=== PATIENT | female | born 1980 | race Caucasian/White ===

== ENCOUNTER 2017-01-24 06:27 | Inpatient (IN) ==
[2017-01-24] MEDS ORDERED: IOPAMIDOL 100 ML BOTTLE IJ ONE (06:28)
[2017-01-24] MEDS ORDERED: LORazepam 1 MG TABLET PO ONE (06:33)
[2017-01-24] MEDS ORDERED: ONDANSETRON 4 MG/2 ML VIAL IV ONE ×2 (06:33→07:41)
[2017-01-24] MEDS ORDERED: POTASSIUM CHLORIDE 20 MEQ, MAGNESIUM SULFATE 16.24 MEQ, THIAMINE 100 MG, MVI, ADULT NO.... IV SCH ×3 (06:38→10:36)
[2017-01-24] MEDS ORDERED: LORazepam 2 MG/ML VIAL IV ONE (07:03)
[2017-01-24 07:18] LABS: Basophils # (Auto) 0 K/mcL (0.0-0.3); Basophils % (Auto) 0.3 % (0.0-2.0); Eosinophils # (Auto) 0 K/mcL (0.0-0.7); Eosinophils % (Auto) 0.5 % (0.0-7.0); Granulocytes % (Auto) 67.7 % (38.0-78.0); Lymphocytes # (Auto) 1.2 K/mcL (1.5-4.8); Lymphocytes % (Auto) 21.9 % (15.5-49.0); Mean Cell Volume 90.8 fL (80.0-100.0); Mean Corpuscular HGB Conc 32.6 g/dL (31.0-36.0); Mean Corpuscular Hemoglobin 29.6 pg (26.0-34.0); Monocytes # (Auto) 0.5 K/mcL (0.1-0.9); Monocytes % (Auto) 9.6 % (1.0-12.0); Platelet Count 432 K/mcL (140-440); RBC 5.25 M/mcL (4.00-5.20); Red Cell Distribution Width 16.1 % (11.5-14.5)
[2017-01-24 07:38] LABS: ALT/SGPT 42 U/l (0-40); Albumin 5.1 gm/dL (3.2-5.2); Albumin/Globulin Ratio 1.6 (1.0-2.3); Alkaline Phosphatase 80 U/L (39-117); Blood Urea Nitrogen 9 mg/dl (6-20)
[2017-01-24] MEDS ORDERED: KETOROLAC 30 MG/ML VIAL IV ONE (07:41)
[2017-01-24] MEDS ORDERED: LACTATED RINGERS 1,000 ML IV ONE (07:41)
[2017-01-24] MEDS ORDERED: PROMETHAZINE 25 MG/ML VIAL IV ONE (07:41)
[2017-01-24] MEDS ORDERED: PROMETHAZINE 50 MG/ML AMPUL IM ONE (07:51)
[2017-01-24] MEDS: HYDROmorphone 2 MG/ML SYRINGE IV PRN ×4 (07:54→22:45)
--- NOTE | 2017-01-24 07:55 | Emergency Department Note ---
General Adult HPI - General Chief complaint: Nausea/Vomiting/Diarrhea Stated complaint: alcohol withdrawl Time Seen by Provider: 01/24/17 07:31 Source: family Mode of arrival: ambulatory Limitations: no limitations - History of Present Illness HPI Narrative: Patient presents, nausea, vomiting, left flank pain and abdominal pain. History of pancreatitis, history of delirium tremens, a history of alcohol withdrawal seizures. Patient states last drink of light was 36 hours ago. Patient severe, unable to keep anything down due to associated nausea, vomiting bilious. No fevers, no shortness of breath or cough. - Related Data Home Medications Medication Instructions Recorded Confirmed Citalopram [Celexa] 20 mg PO HS 01/05/17 01/08/17 Zolpidem Tartrate [Ambien Cr] 12.5 mg PO HS 01/05/17 01/08/17 Previous Rx's Medication Instructions Recorded Amoxicillin/Potassium Clav 875 mg PO Q12H #20 tablet 01/05/17 [Augmentin] LORazepam [Ativan] 1 mg PO Q8HP #12 tablet 01/08/17 Methocarbamol [Robaxin] 500 mg PO QIDP #30 tablet 01/08/17 Allergies Allergy/AdvReac Type Severity Reaction Status Date / Time morphine AdvReac Intermediate Anxiety Verified 01/05/17 12:55 promethazine [From Phenergan] AdvReac Intermediate Other Verified 01/24/17 07:57 trazodone AdvReac Mild nerve pain Verified 01/05/17 12:55 in neck Review of Systems All systems ED: reviewed and negative except as stated. Past Medical History - Past Medical History Attestation: Yes: The following information was validated with the patient. Medical history: Reports: asthma, GERD, seizures, other (alcohol abuse, pancreatitis, alcohol withdrawal) Surgical history ED: Reports: tonsillectomy, other (breast augmentation) Psychiatric history: Reports: anxiety Family history: Reports: non-contributory - Social History smoking status: Current every day smoker Alcohol use: Reports: Heavy, Recent Drug use: Reports: none Physical Exam - General Limitations: no limitations General appearance: alert, anxious, in distress - Head Head exam: atraumatic, normocephalic - Eye Eye exam: Present: normal appearance. Absent: scleral icterus - ENT ENT exam: mucous membranes dry - Neck Neck exam: Present: normal inspection. Absent: tenderness, lymphadenopathy - Chest Chest inspection: Present: normal inspection - Respiratory Respiratory exam: Present: normal lung sounds bilaterally, other (no tachypnea) . Absent: respiratory distress - Cardiovascular Cardiovascular exam: Present: normal rhythm, tachycardia. Absent: systolic murmur - Abdominal Exam Abdominal exam: Present: soft, tenderness. Absent: distention Abdominal tenderness: Present: LUQ, epigastrium, moderate - Extremities Exam Extremities exam: Present: normal inspection - Back Exam Back exam: Present: normal inspection - Neurological Exam Neurological exam: Present: alert, oriented X3 - Psychiatric Psychiatric exam: Present: anxious - Skin Skin exam: Present: diaphoresis Course Vital Signs Temperature 97.3 F L 01/24/17 06:28 Pulse Rate 117 H 01/24/17 06:28 Respiratory Rate 19 01/24/17 06:28 Blood Pressure 157/139 01/24/17 06:28 Pulse Oximetry (%) 99 01/24/17 06:28 Temperature 97.3 F L 01/24/17 06:28 Pulse Rate 88 01/24/17 08:46 Respiratory Rate 19 01/24/17 06:28 Blood Pressure 143/102 01/24/17 07:45 Pulse Oximetry (%) 99 01/24/17 08:46 Medical Decision Making - Medical Records Medical records reviewed: Yes I reviewed the patient's medical records. - Lab Data Lab results reviewed: Yes I reviewed the patient's lab results. Result diagrams: 01/24/17 06:45 01/24/17 06:45 Lab Results 01/24/17 01/24/17 01/24/17 Range/Units 06:45 06:45 06:45 WBC 5.4 (4.5-11.0) K/mcL RBC 5.25 H (4.00-5.20) M/mcL Hgb 15.5 H (12.0-15.0) g/dL Hct 47.7 (36.0-48.0) % MCV 90.8 (80.0-100.0) fL MCH 29.6 (26.0-34.0) pg MCHC 32.6 (31.0-36.0) g/dL RDW 16.1 H (11.5-14.5) % Plt Count 432 (140-440) K/mcL MPV 7.1 L (7.4-10.4) fL Gran % 67.7 (38.0-78.0) % Lymph % (Auto) 21.9 (15.5-49.0) % Chase % (Auto) 9.6 (1.0-12.0) % Eos % (Auto) 0.5 (0.0-7.0) % Baso % (Auto) 0.3 (0.0-2.0) % Gran # 3.6 (1.8-8.0) K/mcL Lymph # 1.2 L (1.5-4.8) K/mcL Chase # 0.5 (0.1-0.9) K/mcL Eos # 0 (0.0-0.7) K/mcL Baso # 0 (0.0-0.3) K/mcL ABG Methemoglobin (0.4-1.5) % VBG pH (7.32-7.42) U VBG pCO2 (41.0-51.0) mmHg VBG pO2 (25-40) mmHg VBG HCO3 (24.0-28.0) mmol/L VBG Total CO2 (25.0-29.0) mmol/L VBG O2 Saturation (40.0-70.0) % VBG Base Excess (-2.0-2.0) Carboxyhemoglobin (0.0-1.5) % THgb Total Hemoglobin (12.0-15.0) gm/dL O2 Delivery Level Sodium 138 (133-145) mmol/L Potassium 3.9 (3.3-5.1) mmol/L Chloride 87 L (96-108) mmol/L Carbon Dioxide 21 L (22-30) mmol/L Anion Gap 30.0 H (8-16) BUN 9 (6-20) mg/dl Creatinine 1.0 (0.6-1.1) mg/dl GFR Calculation 73 Glucose 168 H (70-105) mg/dL Calcium 10.0 (8.6-10.4) mg/dl Total Bilirubin 0.4 (0.0-1.0) mg/dL AST 77 H (0-37) U/l ALT 42 H (0-40) U/l Alkaline Phosphatase 80 (39-117) U/L C-Reactive Protein < 0.3 (0.0-0.8) mg/dl Total Protein 8.2 (5.9-8.4) gm/dL Albumin 5.1 (3.2-5.2) gm/dL Globulin 3.1 (2.2-3.7) gm/dL Albumin/Globulin Ratio 1.6 (1.0-2.3) Amylase 209 H (28-100) U/L Lipase 31 (7-60) U/L 01/24/17 Range/Units 08:15 WBC (4.5-11.0) K/mcL RBC (4.00-5.20) M/mcL Hgb (12.0-15.0) g/dL Hct (36.0-48.0) % MCV (80.0-100.0) fL MCH (26.0-34.0) pg MCHC (31.0-36.0) g/dL RDW (11.5-14.5) % Plt Count (140-440) K/mcL MPV (7.4-10.4) fL Gran % (38.0-78.0) % Lymph % (Auto) (15.5-49.0) % Chase % (Auto) (1.0-12.0) % Eos % (Auto) (0.0-7.0) % Baso % (Auto) (0.0-2.0) % Gran # (1.8-8.0) K/mcL Lymph # (1.5-4.8) K/mcL Chase # (0.1-0.9) K/mcL Eos # (0.0-0.7) K/mcL Baso # (0.0-0.3) K/mcL ABG Methemoglobin 0.3 L (0.4-1.5) % VBG pH 7.44 H (7.32-7.42) U VBG pCO2 45.6 (41.0-51.0) mmHg VBG pO2 139 H (25-40) mmHg VBG HCO3 30.5 H (24.0-28.0) mmol/L VBG Total CO2 31.9 H (25.0-29.0) mmol/L VBG O2 Saturation 93.2 H (40.0-70.0) % VBG Base Excess 5.5 H (-2.0-2.0) Carboxyhemoglobin 5.5 H (0.0-1.5) % THgb Total Hemoglobin 14.1 (12.0-15.0) gm/dL O2 Delivery Level Not Reportable Sodium (133-145) mmol/L Potassium (3.3-5.1) mmol/L Chloride (96-108) mmol/L Carbon Dioxide (22-30) mmol/L Anion Gap (8-16) BUN (6-20) mg/dl Creatinine (0.6-1.1) mg/dl GFR Calculation Glucose (70-105) mg/dL Calcium (8.6-10.4) mg/dl Total Bilirubin (0.0-1.0) mg/dL AST (0-37) U/l ALT (0-40) U/l Alkaline Phosphatase (39-117) U/L C-Reactive Protein (0.0-0.8) mg/dl Total Protein (5.9-8.4) gm/dL Albumin (3.2-5.2) gm/dL Globulin (2.2-3.7) gm/dL Albumin/Globulin Ratio (1.0-2.3) Amylase (28-100) U/L Lipase (7-60) U/L - Radiology Data Radiology results reviewed: Yes I reviewed the patient's radiology results. Disposition Clinical Impression: Alcohol withdrawal delirium Pancreatitis Qualifiers: Chronicity: acute Pancreatitis type: alcohol induced Acute pancreatitis complication: unspecified Qualified Code(s): K85.20 - Alcohol induced acute pancreatitis without necrosis or infection Nausea & vomiting Qualifiers: Vomiting type: bilious vomiting Qualified Code(s): R11.14 - Bilious vomiting Summary: patient planning on Inpatient rehabilitation program, intake on Friday. Stopped alcohol in advance. Consuming more than 12 beers a day. Previous sobriety, just recently lost her job Patient accepted by DR Durant Disposition: Xfer As Inpt ([facility]) Condition: Fair Referrals: Vivian Olivarez ARNP [Primary Care Provider] -
[2017-01-24 08:12] LABS: Amylase 209 U/L (28-100); C-Reactive Protein < 0.3 mg/dl (0.0-0.8); Lipase 31 U/L (7-60)
[2017-01-24 08:42] LABS: ABG Methemoglobin 0.3 % (0.4-1.5); VBG Base Excess 5.5 (-2.0-2.0); VBG HCO3 30.5 mmol/L (24.0-28.0); VBG Oxygen Saturation 93.2 % (40.0-70.0); VBG PCO2 45.6 mmHg (41.0-51.0); VBG PH 7.44 U (7.32-7.42); VBG PO2 139 mmHg (25-40); VBG Total CO2 31.9 mmol/L (25.0-29.0)
[2017-01-24] MEDS ORDERED: PROCHLORPERAZINE 10 MG/2 ML VIAL IV ONE (08:47)
[2017-01-24] MEDS ORDERED: IPRATROPIUM/ALBUTEROL 3 ML AMPUL.NEB NEB PRN ×2 (09:37→10:36)
[2017-01-24] MEDS ORDERED: ONDANSETRON 4 MG/2 ML VIAL IV PRN (09:37)
[2017-01-24] MEDS ORDERED: PROMETHAZINE 25 MG/ML VIAL IV PRN ×2 (09:37→10:36)
[2017-01-24] MEDS ORDERED: NALOXONE HCL 0.4 MG/ML VIAL IV PRN ×2 (09:37→10:36)
[2017-01-24] MEDS ORDERED: PANTOPRAZOLE 40 MG VIAL IV SCH (09:39)
[2017-01-24] MEDS ORDERED: 0.9 % SODIUM CHLORIDE 1,000 ML IV SCH (09:45)
--- NOTE | 2017-01-24 10:03 | Cat Scan Report ---
History: Pancreatitis and alcohol withdrawal Technique: the patient was imaged following intravenous but no oral contrast from the diaphragm to the iliac crests sagittal and coronal reformats were created. Findings: The lung bases are clear. There is a small hiatus hernia. Mild fatty infiltration is present throughout the liver. The liver is normal in size and there is no evidence of cirrhosis or mass. The gallbladder and bile ducts are normal. Spleen is normal in size and homogeneous. The pancreas is normal in size shape and contour, without evidence of acute or chronic pancreatitis. Pancreatic duct is nondilated. The adrenals and kidneys are normal. The aorta and inferior vena cava are normal. There is no ascites or adenopathy. Comparison with the prior exam from 11/29/16 shows no significant change. Impression: Anatomically normal pancreas. Mild fatty infiltration of liver Dr. Bernard was called with results Interpreted and Authenticated by: Jimmie Hamlin 01/24/17
--- NOTE | 2017-01-24 10:03 | Internal Med History&Physical ---
Medical - H&P: HPI Patient information: Note initiated : 01/24/17 at 10:00 am Service Date, if different from initiated Date: [] Patient: Tameka Cody a 36 y/o F admitted on for Alcohol Withdrawl. Chief Complaint: [] History of present illness: Ms. Cody is a 36 year old female wit h/o alcohol abuse, on and off relapse, comes in to the ER with alcohol withdrawal The patient was trying to quit alcohol approx 2 week ago, she was sober for around a week, and then she relapsed. She notes that she lost her job and therefore started drinking again. Drinks approx 12 beers (keystone) every day. She decided to quit again yesterday, last drink yesterday noon. This AM she presents to the ER with anxiety, dizziness, tremors, palpitations, nausea, vomiting and abdominal pain. the patient reports that she is due to check her self in Rehab on Friday, but needs to get through the withdrawal first. She has cough with yellow sputum, h/o recently diagnosed pna, treated with Augmentin. The pt reports persistent cough, chills but no documented fever The patient usually has withdrawals, and is treated as outpatient with ativan in the past, denies any ICU admits, however she notes that she had alcohol withdrawal seizure 2 months ago. She also notes abdominal pain, in the epigastric, left lumbar region, associated with nausea and vomiting, x 1 day, movement makes it worse, no major reilving factors, moderate in intensity. Plan is to get CT abdo in the CT. Urine HCG test before ct ordered. Pt denies any other ingestion. Review of systems: CONSTITUTIONAL: No weight loss, fever, present chills and weakness HEENT: Eyes: No visual loss, blurred vision, double vision or yellow sclerae. Ears, Nose, Throat: No hearing loss, sneezing, congestion, runny nose or sore throat. SKIN: No rash or itching. CARDIOVASCULAR: No chest pain, chest pressure or chest discomfort. no edema, but palpitations are present. RESPIRATORY: No shortness of breath. Present cough and yellow sputum. GASTROINTESTINAL: present nausea, vomiting and diarrhea Present abdominal pain GENITOURINARY: Denies Burning on urination. Blood in urine, or foul smelling urine NEUROLOGICAL: present headache, dizziness, No syncope, paralysis, Present tremors, . No change in bowel or bladder control. MUSCULOSKELETAL: No muscle, back pain, joint pain or stiffness. HEMATOLOGIC: No bleeding or bruising. No enlarged nodes PSYCHIATRIC: Present depression and anxiety. ENDOCRINOLOGIC: PResent sweating, . No polyuria or polydipsia. ALLERGIES: No hives, eczema or rhinitis. Skin: No rash, no jaundice, cyanosis or pallor. Medical - H&P: PMH Medical history: Alcohol abuse exercise induced asthma Depression. / anxiety Family history: reviewed and not pertinent Social history: smoker etoh, denies thc or ther substances. Medical - H&P: Meds Home Medications Medication Instructions Recorded Confirmed Type Amoxicillin/Potassium Clav 875 mg PO Q12H #20 tablet 01/05/17 01/08/17 Rx [Augmentin] Citalopram [Celexa] 20 mg PO HS 01/05/17 01/08/17 History Zolpidem Tartrate [Ambien Cr] 12.5 mg PO HS 01/05/17 01/08/17 History LORazepam [Ativan] 1 mg PO Q8HP #12 tablet 01/08/17 Rx Methocarbamol [Robaxin] 500 mg PO QIDP #30 tablet 01/08/17 Rx Allergies Allergy/AdvReac Type Severity Reaction Status Date / Time morphine AdvReac Intermediate Anxiety Verified 01/05/17 12:55 promethazine [From Phenergan] AdvReac Intermediate Other Verified 01/24/17 07:57 trazodone AdvReac Mild nerve pain Verified 01/05/17 12:55 in neck Medical - H&P: Exam - Constitutional Vitals: Temp Pulse Resp BP Pulse Ox 97.3 F L 88 19 143/102 99 01/24/17 06:28 01/24/17 08:46 01/24/17 06:28 01/24/17 07:45 01/24/17 08:46 Exam: GENERAL: The patient is a well-developed, well-nourished in no apparent distress, appears anxious. Is alert and oriented x3. VITAL SIGNS: Reviewed and as noted elsewhere. HEENT: Head is normocephalic and atraumatic. Extraocular muscles are intact. Pupils are equal, round, and reactive to light. Nares appeared normal. Mouth appears any without lesions. Mucous membranes are moist. NECK: Normal to inspection, Supple, No lymphadenopathy or thyromegaly. LUNGS: Air entry equal on both sides, no wheezing, crackles or rhonchi noted. No accessory muscles of respiration HEART: Regular tachycardic and rhythm normal, S1 and S2 heard, no Gallop, S3 or Rub Noted, No Gross murmur heard. ABDOMEN: Soft, tender in the epigastric, left upper/ lumbar region, no guarding or rebound, nondistended. Positive bowel sounds. No hepatosplenomegaly was noted. EXTREMITIES: No cyanosis, clubbing, rash, lesions or edema. NEUROLOGIC: Cranial nerves II through XII are grossly intact. Motor and Sensory System Grossly Intact, tongue tremors and hand tremors present. PSYCHIATRIC: Normal affect, Normal Mood. Appropriate Behavior. SKIN: No ulceration or wounds noted, No jaundice, No rash noted. Medical - H&P: Reslt - Labs CBC & Chem 7: 01/24/17 06:45 01/24/17 06:45 Labs: Short CBC 01/24/17 Range/Units 06:45 WBC 5.4 (4.5-11.0) K/mcL Hgb 15.5 H (12.0-15.0) g/dL Hct 47.7 (36.0-48.0) % Plt Count 432 (140-440) K/mcL BMP 01/24/17 06:45 Sodium 138 Potassium 3.9 Chloride 87 L Carbon Dioxide 21 L BUN 9 Creatinine 1.0 Glucose 168 H Calcium 10.0 Liver Function 01/24/17 Range/Units 06:45 Total Bilirubin 0.4 (0.0-1.0) mg/dL AST 77 H (0-37) U/l ALT 42 H (0-40) U/l Alkaline Phosphatase 80 (39-117) U/L Albumin 5.1 (3.2-5.2) gm/dL - ABG Interpretation ABG results: 01/24/17 08:15 ABG Methemoglobin 0.3 L VBG pH 7.44 H VBG pCO2 45.6 VBG pO2 139 H VBG HCO3 30.5 H VBG Total CO2 31.9 H VBG O2 Saturation 93.2 H VBG Base Excess 5.5 H Additional comments: vbg noted, pt seems to have high anion gap metabolic acidosis, Acute resp alkalosis. Medical - H&P: A/P - Narrative A/P Narrative: Alcohol withdrawal: Presently not confused, but tremulous, difficult to take PO , IV banana bag given in ER, will continue same daily, CIWA protocol, IV ativan prn. Look for infectious sources. check UA, CXR, Get utox. High Anion Gap Acidosis/ Resp Alkalosis: AG of 30, ph 7.44, etiology? check etiology for high gap, salicylates, methyl alcohol, isopropyl alcohol, ethyelene glycol, also check Tylenol levels. Urine drug screen. Pt denies any ingestion. abnl lft: due to etoh, check apap levels. Abdominal Pain: Likely from alcohol withdrawal, amylase elevated, lipase normal Await CT Scan. Code Full code Diet Regular
--- NOTE | 2017-01-24 10:34 | XRay Report ---
HISTORY: Reason for Exam:pneumonia. FINDINGS: The lungs are clear. The heart, mediastinum, micheal and pleura are normal. The mild alveolar infiltrate seen throughout the right lung on 01/08/17 has resolved. There is no underlying mass, adenopathy or pleural effusion. IMPRESSION: Normal chest. Interpreted and Authenticated by: Jimmie Hamlin 01/24/17
[2017-01-24] MEDS: 0.9 % SODIUM CHLORIDE 1,000 ML IV SCH ×2 (10:45→20:41)
[2017-01-24 10:54] LABS: Acetaminophen < 5.0 mcg/ml (10.0-30.0); Salicylate 0.8 mg/dL (0-30.0)
[2017-01-24] MEDS: LORazepam 2 MG/ML VIAL IV PRN ×4 (12:16→22:46)
[2017-01-24 16:05] LABS: Appearance,Urine HAZY; Bacteria,Urine 0 /hpf (0); Bilirubin,Urine NEG (NEG); Color,Urine YELLOW; Glucose,Urine (UA) NEGATIVE (NEG); Leukocyte Esterase,Urine NEG /uL (NEG); Mucus,Urine FEW /hpf (0); Nitrate,Urine NEG (NEG); Protein,Urine 30 mg/dL (NEG); Specific Gravity,Urine 1.032 (1.000-1.035); Urine Blood NEG mg/dL (<0.03); Urine Hyaline Cast 3 /lpf (0-2); Urine RBC 4 /hpf (0-1); Urine Squamous Epithelial Cell 17 /hpf (0-4); Urine WBC 7 /hpf (0-4); Urobilinogen,Urine NEG (NEG)
[2017-01-24] MEDS: ONDANSETRON 4 MG/2 ML VIAL IV PRN (16:22)
[2017-01-24 16:30] LABS: Amphetamine Screen,Urine NONE DETECTED (NONDETECTED); Benzodiazepines Screen,Urine NONE DETECTED (NONDETECTED); Cocaine Screen,Urine NONE DETECTED (NONDETECTED); Opiate Screen,Urine NONE DETECTED (NONDETECTED)
[2017-01-24] MEDS ORDERED: HEPARIN 5,000 UNIT/ML VIAL SQ SCH (21:00)
[2017-01-24] MEDS: HEPARIN 5,000 UNIT/ML VIAL SQ SCH (21:00)
[2017-01-25] MEDS: HYDROmorphone 2 MG/ML SYRINGE IV PRN ×5 (02:27→20:59)
[2017-01-25] MEDS: ONDANSETRON 4 MG/2 ML VIAL IV PRN ×3 (02:27→13:13)
[2017-01-25] MEDS: LORazepam 2 MG/ML VIAL IV PRN ×7 (02:49→23:48)
[2017-01-25 06:11] LABS: ALT/SGPT 30 U/l (0-40); Albumin/Globulin Ratio 1.9 (1.0-2.3); Alkaline Phosphatase 60 U/L (39-117); Basophils # (Auto) 0 K/mcL (0.0-0.3); Basophils % (Auto) 0.4 % (0.0-2.0); Bilirubin,Direct < 0.2 mg/dL (0.0-0.3); Blood Urea Nitrogen 7 mg/dl (6-20); Eosinophils # (Auto) 0.1 K/mcL (0.0-0.7); Eosinophils % (Auto) 2.5 % (0.0-7.0); Gamma Glutamyl Transpeptidase 25 U/L (5-36); Granulocytes % (Auto) 54.9 % (38.0-78.0); Lymphocytes # (Auto) 0.9 K/mcL (1.5-4.8); Lymphocytes % (Auto) 31.7 % (15.5-49.0); Magnesium 2.2 mg/dL (1.6-2.5); Mean Cell Volume 91.6 fL (80.0-100.0); Mean Corpuscular HGB Conc 33.3 g/dL (31.0-36.0); Mean Corpuscular Hemoglobin 30.5 pg (26.0-34.0); Monocytes # (Auto) 0.3 K/mcL (0.1-0.9); Monocytes % (Auto) 10.5 % (1.0-12.0); Platelet Count 194 K/mcL (140-440); RBC 4.07 M/mcL (4.00-5.20); Red Cell Distribution Width 15.6 % (11.5-14.5); Uric Acid 3.9 mg/dL (2.5-8.0)
[2017-01-25] MEDS: 0.9 % SODIUM CHLORIDE 1,000 ML IV SCH ×2 (06:27→19:43)
[2017-01-25] MEDS: PANTOPRAZOLE 40 MG VIAL IV SCH (08:28)
[2017-01-25] MEDS: HEPARIN 5,000 UNIT/ML VIAL SQ SCH ×2 (09:45→21:00)
[2017-01-25] MEDS: PROCHLORPERAZINE 10 MG/2 ML VIAL IV PRN ×2 (09:45→19:42)
[2017-01-25] MEDS: NEUTRA PHOS 1 PACKET PO SCH ×2 (09:46→21:00)
--- NOTE | 2017-01-25 10:19 | Internal Med Progress Note ---
Medical - PN: Subj Patient information: Note initiated : 01/25/17 at 10:19 am Service Date, if different from initiated Date: [] Patient: Tameka Cody a 36 y/o F admitted on 01/24/17 for Alcohol Withdrawl. Chief Complaint: [] Interval history: January 24, 2017: History of present illness: Ms. Cody is a 36 year old female wit h/o alcohol abuse, on and off relapse, comes in to the ER with alcohol withdrawal. The patient was trying to quit alcohol approx 2 week ago, she was sober for around a week, and then she relapsed. She notes that she lost her job and therefore started drinking again. Drinks approx 12 beers (keystone) every day. She decided to quit again yesterday, last drink yesterday noon. This AM she presents to the ER with anxiety, dizziness, tremors, palpitations, nausea, vomiting and abdominal pain. the patient reports that she is due to check her self in Rehab on Friday, but needs to get through the withdrawal first. She has cough with yellow sputum, h/o recently diagnosed pna, treated with Augmentin. The pt reports persistent cough, chills but no documented fever. The patient usually has withdrawals, and is treated as outpatient with ativan in the past, denies any ICU admits, however she notes that she had alcohol withdrawal seizure 2 months ago. She also notes abdominal pain, in the epigastric, left lumbar region, associated with nausea and vomiting, x 1 day, movement makes it worse, no major reilving factors, moderate in intensity. Plan is to get CT abdo in the CT. Urine HCG test before ct ordered. Pt denies any other ingestion. January 25: On service note: his patient with a history of chronic alcoholism was admitted yesterday complaining of anxiety, nausea and vomiting, and other signs of acute alcohol withdrawal. She underwent CT of the abdomen, which was not suggestive of any acute disease, including pancreatitis. she was noted to have a significant anion gap acidosis, likely due to alcoholic ketoacidosis. This has significantly improved overnight after IV fluid hydration. The patient has continued to complainof various things, including headache, dizziness, cough productive of yellowish phlegm, chest soreness from vomiting, nausea and vomiting, mild abdominalepigastric and left upper quadrant soreness, anxiety. She denies hematemesis, but generally has a positive review of systems, reporting that she has felt feverish and cold, clammy, dizzy, mildly short of breath, occasional palpitations. She denies dysuria. past medical history is notable for history of chronic alcohol abuse, exercise- induced asthma, depression and anxiety allergies include morphine, promethazine, trazodone social history: The patient is apparently , and lives with her 12-year- old son. It appears there is shared custody with her ex-. The patient is a current smoker, but denies drug use. - Constitutional Vitals: Vital Signs Temp Pulse Resp BP Pulse Ox 98.5 F 86 12 133/95 94 01/25/17 08:00 01/25/17 04:00 01/25/17 08:00 01/25/17 08:00 01/25/17 08:00 Period Temp Pulse Resp BP Sys/Lomeli Pulse Ox Last 24 Hr 97.4 F-98.5 F 86-90 12-18 133-157/76-139 94-100 Intake and Output 01/24/17 01/25/17 01/25/17 21:59 05:59 13:59 Intake Total 2133 / 2133 480 / 480 977 / 977 Output Total 1050 / 1050 1500 / 1500 Balance 1083 / 1083 -1020 / -1020 977 / 977 Weight 139 lb 3.2 oz 139 lb 3.2 oz Patient Weight 01/26/17 05:59 Weight 139 lb 3.2 oz Intake & Output: Intake & Output 01/24/17 01/25/17 01/25/17 21:59 05:59 13:59 Intake Total 2133 / 2133 480 / 480 977 / 977 Output Total 1050 / 1050 1500 / 1500 Balance 1083 / 1083 -1020 / -1020 977 / 977 Weight 139 lb 3.2 oz 139 lb 3.2 oz Intake: IV 993 / 993 977 / 977 Sodium Chloride 0.9% 1, 993 / 993 977 / 977 000 ml @ 100 mls/hr IV . Q10H [facility] Rx#:[id number] Oral 1140 / 1140 480 / 480 Output: Void Amount 1050 / 1050 1400 / 1400 Emesis 100 / 100 Other: Meal Dinner Percent of Meal Consumed 25% Feeding Ability Assist with Tray Set Up Exam: on exam, the patient is awake and alert She did have recurrent vomiting this morning, but is more comfortable when I see her. She is not in any acute distress. Neck is supple without obvious lymphadenopathy or JVD. Cardiac exam shows regular rate and rhythm. Lungs are clear to auscultation. Abdomen is diffusely tender, but without guarding or rebound. Bowel sounds are active. Extremities: Show no significant edema. Neurologic exam: The patientis a bit anxious at times, but otherwise exam is grossly nonfocal. Medical - PN: Obj Da - Labs CBC & Chem 7: 01/25/17 04:05 01/25/17 04:05 Labs: Abnormal Lab Results 01/25/17 01/25/17 01/24/17 04:05 04:05 15:37 WBC 2.8 L RDW 15.6 H Gran # 1.5 L Lymph # 0.9 L Chloride 95 L Calcium 8.4 L Phosphorus 2.3 L AST 48 H Globulin 2.1 L Urine Protein 30 A Urine Ketones 5/tr A Urine RBC 4 H Urine WBC 7 H Ur Squamous Epith Cells 17 H Hyaline Casts 3 H urine tox screen from January 24 was essentially negative. Salicylate level from yesterday was normal at 0.8, and Tylenol was negative. Ethyl alcohol was elevated at 0.33 chest x-ray was normal on January 24. CT of the abdomen from January 24, shows a small hiatal hernia, and mild fatty liver infiltration. Gallbladder, spleen, pancreas all appeared normal. Meds: Medications Albuterol/Ipratropium (Duoneb) 3 ml NEB Q6HRT PRN PRN Reason: Shortness Of Breath Or Wheezing Heparin Sodium (Porcine) (Heparin) 5,000 unit SQ Q12 PAUL Last Admin: 01/25/17 09:45 Dose: 5,000 unit Hydromorphone HCl (Dilaudid) 0.5 mg IV Q4-6HP PRN PRN Reason: Pain Last Admin: 01/25/17 06:30 Dose: 0.5 mg Sodium Chloride (Sodium Chloride 0.9%) 1,000 mls @ 100 mls/hr IV .Q10H PAUL Last Admin: 01/25/17 06:27 Dose: 100 mls/hr Potassium Chloride 20 meq/Magnesium Sulfate 16.24 meq/Thiamine HCl 100 mg/ Multivitamins/Minerals 10 ml/Sodium Chloride 1,025 mls @ 125 mls/hr IV Q24H [facility] Stop: 01/27/17 18:11 Lorazepam (Ativan) 1 - 4 mg IV Q4HP PRN; Protocol PRN Reason: Alcohol Withdrawal Last Admin: 01/25/17 09:59 Dose: 2 mg Naloxone HCl (Narcan) 0.1 mg IV Q2MIN PRN PRN Reason: Opiate Reversal Nicotine (Nicoderm) 14 mg TOPICAL DAILY@1000 PAUL Ondansetron HCl (Zofran) 4 mg IV Q4HP PRN PRN Reason: Nausea And Vomiting Last Admin: 01/25/17 06:26 Dose: 4 mg Pantoprazole Sodium (Protonix) 40 mg IV QAMAC [facility] Last Admin: 01/25/17 08:28 Dose: 40 mg Potassium/Phosphorus/Sodium (Neutra Phos) 1 packet PO BID [facility] Last Admin: 01/25/17 09:46 Dose: 1 packet Prochlorperazine Edisylate (Compazine) 2.5 mg IV Q2HP PRN PRN Reason: Nausea And Vomiting Last Admin: 01/25/17 09:45 Dose: 2.5 mg Medical - PN: A/P - Time Spent With Patient Total time spent is greater than 50% in coordination of care (as documented) at patient's floor/unit and/or counseling patient: - Narrative A/P Narrative: #1. Alcohol withdrawal. -Continue close observation, and when necessary Ativan and Zofran, per the CIWA scale. -Patient plans to enter inpatient rehabilitation X week. #2. Renal. -This patient presented with probable alcoholic ketoacidosis, and anion gap has returned to normal today.continue IV fluids until oral intake improves. -phosphorus level is low today. We will try to replace this orally. #3.GI. -Patient continues to have intermittent nausea and vomiting. This is managed with Zofranand Compazine when necessary was added this morning. -Transaminases are mildly elevated, likely due to alcoholic hepatitis. These are improving today. tox screen was essentially negative. #4. Infectious disease/ pulmonary. The patient was treated for pneumonia a week or 2 ago. She continues to have productive cough, and it is not clear if this is contributing to her vomiting spells. I think given her overall debilitated state, and mild pancytopenia, that I will reintroduce antibiotics for probable ongoing bronchitis. Also add when necessary albuterol nebulizers. #5. DVT prophylaxis: Subcutaneous heparin. #6. CODE STATUS: Full code. #7. Hematologic. hemoglobin and hematocrit have dropped with hydration. Continue to follow. The patient also has mild leukopenia and lymphopenia, likely due to her chronic alcohol use. Continue to monitor. Platelets have also dropped significantly, and we will continue to monitor. this visit took approximately 35 minutes today, to review the patient's chart and test results, interview and examine her, review clinic care with nursing staff, and write orders. Medical - PN: Qual - VTE Deep Vein Thrombosis/Pulmonary Embolism Present on Admission: No
[2017-01-25] MEDS: NICOTINE 14 MG PATCH TOPICAL SCH (10:56)
[2017-01-25] MEDS: POTASSIUM CHLORIDE 20 MEQ, MAGNESIUM SULFATE 16.24 MEQ, THIAMINE 100 MG, MVI, ADULT NO.... IV SCH (10:56)
[2017-01-25] MEDS: 0.9 % SODIUM CHLORIDE 10 ML SYRINGE IV SCH ×4 (14:27→21:00)
[2017-01-25] MEDS: PIPERACILLIN SODIUM/TAZOBACTAM 3.375 GM in DEXTROSE 5% IN WATER 50 ML IV SCH ×2 (14:27→20:58)
[2017-01-26] MEDS: HYDROmorphone 2 MG/ML SYRINGE IV PRN ×2 (01:49→04:42)
[2017-01-26] MEDS: PROCHLORPERAZINE 10 MG/2 ML VIAL IV PRN (01:49)
[2017-01-26] MEDS: LORazepam 2 MG/ML VIAL IV PRN ×3 (02:45→08:03)
[2017-01-26] MEDS: 0.9 % SODIUM CHLORIDE 1,000 ML IV SCH (04:40)
[2017-01-26] MEDS: PIPERACILLIN SODIUM/TAZOBACTAM 3.375 GM in DEXTROSE 5% IN WATER 50 ML IV SCH (04:41)
[2017-01-26] MEDS: 0.9 % SODIUM CHLORIDE 10 ML SYRINGE IV SCH (04:41)
[2017-01-26 05:59] LABS: Basophils # (Auto) 0 K/mcL (0.0-0.3); Basophils % (Auto) 0.5 % (0.0-2.0); Eosinophils # (Auto) 0.2 K/mcL (0.0-0.7); Eosinophils % (Auto) 5.2 % (0.0-7.0); Granulocytes % (Auto) 45.1 % (38.0-78.0); Lymphocytes # (Auto) 1.5 K/mcL (1.5-4.8); Lymphocytes % (Auto) 42.7 % (15.5-49.0); Mean Cell Volume 91.7 fL (80.0-100.0); Mean Corpuscular HGB Conc 33.4 g/dL (31.0-36.0); Mean Corpuscular Hemoglobin 30.6 pg (26.0-34.0); Monocytes # (Auto) 0.2 K/mcL (0.1-0.9); Monocytes % (Auto) 6.5 % (1.0-12.0); Platelet Count 167 K/mcL (140-440); RBC 3.88 M/mcL (4.00-5.20); Red Cell Distribution Width 15.3 % (11.5-14.5)
[2017-01-26 06:20] LABS: ALT/SGPT 28 U/l (0-40); Albumin 3.4 gm/dL (3.2-5.2); Albumin/Globulin Ratio 1.4 (1.0-2.3); Alkaline Phosphatase 55 U/L (39-117); Bilirubin,Direct < 0.2 mg/dL (0.0-0.3); Blood Urea Nitrogen 4 mg/dl (6-20); Gamma Glutamyl Transpeptidase 22 U/L (5-36); Uric Acid 2.2 mg/dL (2.5-8.0)
[2017-01-26] MEDS: PANTOPRAZOLE 40 MG VIAL IV SCH (07:25)
[2017-01-26] MEDS: NEUTRA PHOS 1 PACKET PO SCH (09:13)
[2017-01-26] MEDS: HEPARIN 5,000 UNIT/ML VIAL SQ SCH (09:14)
[2017-01-26] MEDS: POTASSIUM CHLORIDE 20 MEQ, MAGNESIUM SULFATE 16.24 MEQ, THIAMINE 100 MG, MVI, ADULT NO.... IV SCH (09:15)
[2017-01-26] MEDS: NICOTINE 14 MG PATCH TOPICAL SCH ×2 (10:39→12:27)
--- NOTE | 2017-01-26 11:12 | Discharge Summary ---
Medical - DS: Prov Patient information: Note initiated : 01/26/17 at 11:04 am Service Date, if different from initiated Date: [] Patient: Tameka Cody a 36 y/o F admitted on 01/24/17 for Alcohol Withdrawl. Chief Complaint: [] Date of admission: 01/24/17 10:25 Discharge date: 01/26/17 Primary care physician: [] Vivian Olivarez, nurse practitioner, phone #[phone] Admitting clinician: Cecile Durant Attending physician on discharge: Jenny Larsen Medical - DS: Meds - Discharge Medications Prescriptions: Amoxicillin/Potassium Clav [Augmentin] 875 mg PO BID #10 tablet Cyanocobalamin/FA/Pyridoxine [B Complex-Folic Acid Tablet] 1 each PO DAILY #1 tablet LORazepam [Ativan] 1 mg PO Q8HP #12 tablet Nicotine [Nicoderm] 14 mg TOPICAL DAILY@1000 #30 patch Active and Home Medications: Home Medications Zolpidem Tartrate [Ambien Cr] 12.5 mg PO HS 01/05/17 [History Confirmed Last Taken 01/23/17 21:00] LORazepam [Ativan] 1 mg PO Q8HP #12 tablet 01/08/17 [Rx Confirmed 01/24/17 Last Taken 01/01/17 21:00] Cymbalta 60 mg PO QDAY 01/24/17 [History Confirmed 01/24/17 Last Taken 01/23/17 08:00] Medical - DS: Hosp Hospital course: Ms. Cody is a 36 year old female January 25: On service note: This patient with a history of chronic alcoholism was admitted yesterday complaining of anxiety, nausea and vomiting, and other signs of acute alcohol withdrawal. She underwent CT of the abdomen, which was not suggestive of any acute disease, including pancreatitis. she was noted to have a significant anion gap acidosis, likely due to alcoholic ketoacidosis. This has significantly improved overnight after IV fluid hydration. The patient has continued to complain of various things, including headache, dizziness, cough productive of yellowish phlegm, chest soreness from vomiting, nausea and vomiting, mild abdominal epigastric and left upper quadrant soreness, anxiety. She denies hematemesis, but generally has a positive review of systems, reporting that she has felt feverish and cold, clammy, dizzy, mildly short of breath, occasional palpitations. She denies dysuria. hospital course; this patient was admitted with signs of alcohol withdrawal, mainly consisting of anxiety, tremor, nausea and vomiting. She required fairly high dose Ativan, and addition to Zofran and Compazine to control her symptoms, but this morning says she is feeling quite a bit better. She was able to tolerate dinner last night and breakfast this morning. She would like to return home as long as we can send her home with some Ativan for her episodes of anxiety and tremor. She says she will go to a friend's house, and he will manage the medications for her. otherwise, today,she denies fever or chills, chest pain or shortness of breath She does still have some mild abdominal soreness, but has not had any more nausea or vomiting. She denies dysuria. past medical history is notable for history of chronic alcohol abuse, exercise- induced asthma, depression and anxiety allergies include morphine, promethazine, trazodone social history: The patient is apparently , and lives with her 12-year- old son. It appears there is shared custody with her ex-. The patient is a current smoker, but denies drug use. physical exam: The patient is in no acute distress, but was dozing when I entered the room. She awakens fairly easily.Neck is supple without obvious adenopathy or JVD. Cardiac exam shows regular rate and rhythm. Lungs are clear to auscultation. Abdomen is soft, but fairly diffusely tender, without guarding or rebound. Bowel sounds are active. Extremities show no edema. Neurologic exam:Mood and affect still appears just slightly anxious, but otherwise she is alert and oriented and cooperative. Cranial nerves are grossly intact. No tremor is noted. Exam is otherwise grossly nonfocal. assessment and plan: #1. Alcohol withdrawal. She seems to be past the worst part of her withdrawal, and can probably be discharged home today. he will have a friend help manage any other symptoms of anxiety or tremor She says she is to report for an outpatient rehabilitation program day after tomorrow. #2. Renal. -This patient presented with probable alcoholic ketoacidosis, and anion gap has returned to normal . most lab abnormalities have returned to normal after IV fluids Phosphorus was low and was replaced by mouth. #3.GI. -Patient has had decreasing episodes of intermittent nausea and vomiting. we did have to addCompazine to Zofran to control her nausea, but this seems to have settled down today. -Transaminases are mildly elevated, likely due to alcoholic hepatitis. These are improving . tox screen was essentially negative. #4. Infectious disease/ pulmonary. The patient was treated for pneumonia a week or 2 ago. She continued to havea lot of coughing and yellowish phlegm yesterday, so she was started on Zosyn to try to clear out whatever was left of her lung infection. I will send her home with another 4 days of oral Augmentin. It appears that a lot of her abdominal soreness may be because she was doing so much coughing and vomiting. #5. DVT prophylaxis: Subcutaneous heparin. #6. CODE STATUS: Full code. #7. Hematologic. hemoglobin and hematocrit have dropped with hydration. Continue to follow. The patient also has mild leukopenia, but lymphopenia has improved. Platelets also dropped from her admission number of 432 down to 167. I suspect she has bone marrow dysfunction due to her ongoing alcohol use, but a CBC should probably be rechecked next week when she follows up with her pCP. -I have advised her to take a B complex supplements and an iron supplement, until her CBC recovers to normal.she should also certainly remain abstinent from alcohol. #8. Tobacco abuse. -The patient has been tolerating a NicoDerm patch while here, and does request a prescription for home.she did note some strange dreams last night, so I told her that she could try taking the patch off at bedtime. this visit took approximately 40 minutes today, to review the patient's chart, review her case with nursing staff, interview and examine her,review test results and write orders. Discharge diagnosis: acute alcohol withdrawal, alcoholism, depression and anxiety, tobacco use - Time Spent with Patient Total time spent providing and/or coordinating discharge services: Greater than 30 minutes Medical - DS: Exam - Constitutional Vitals: Vital Signs Temp Pulse Resp BP Pulse Ox 01/26/17 07:41 98.5 F 16 156/101 95 01/26/17 07:20 95 01/26/17 04:00 98.2 F 80 20 144/96 98 01/25/17 23:54 97.8 F 91 H 22 139/94 01/25/17 19:55 108 H 22 94 01/25/17 19:46 98.2 F 108 H 22 143/95 94 01/25/17 16:55 98.6 F 16 152/103 98 01/25/17 12:00 98.4 F 82 14 131/93 96 Intake and Output 01/25/17 01/26/17 01/26/17 21:59 05:59 13:59 Intake Total 2865 / 2865 895 / 895 1490 / 1490 Output Total 2600 / 2600 500 / 500 1150 / 1150 Balance 265 / 265 395 / 395 340 / 340 Intake: IV 1125 / 1125 895 / 895 520 / 520 Sodium Chloride 0.9% 1, 0 / 0 895 / 895 457 / 457 000 ml @ 100 mls/hr IV . Q10H [facility] Rx#:[id number] Zosyn 3.375 gm In 100 / 100 50 / 50 Dextrose 5% in Water 50 ml @ 100 mls/hr IV Q8 PAUL Rx#:[id number] Oral 1740 / 1740 970 / 970 Output: Void Amount 2600 / 2600 500 / 500 1150 / 1150 Other: Meal Lunch Nourishment/Supplement Percent of Meal Consumed 50% 100% Feeding Ability Independent Weight 143 lb 4.8 oz Medical - DS: Data Labs on day of discharge: Labs from last 24 hours 01/26/17 01/26/17 04:35 04:35 WBC 3.5 L RBC 3.88 L Hgb 11.9 L Hct 35.6 L MCV 91.7 MCH 30.6 MCHC 33.4 RDW 15.3 H Plt Count 167 MPV 7.8 Gran % 45.1 Lymph % (Auto) 42.7 [place] % (Auto) 6.5 Eos % (Auto) 5.2 Baso % (Auto) 0.5 Gran # 1.6 L Lymph # 1.5 [place] # 0.2 Eos # 0.2 Baso # 0 Sodium 139 Potassium 3.8 Chloride 98 Carbon Dioxide 28 Anion Gap 13.0 BUN 4 L Creatinine 0.8 GFR Calculation 96 Glucose 103 Uric Acid 2.2 L Calcium 8.4 L Phosphorus 3.2 Magnesium 2.0 Total Bilirubin 0.3 Direct Bilirubin < 0.2 GGT 22 AST 38 H ALT 28 Alkaline Phosphatase 55 Lactate Dehydrogenase 197 Total Protein 5.8 L Albumin 3.4 Globulin 2.4 Albumin/Globulin Ratio 1.4 Triglycerides 90 blood gas from January 24, 2017: PH 7.44 PCO2 45, PaO2 139, bicarbonate 30, O2 saturation 93% met hemoglobin was low at 0.3 Lactic acid was normal at 1.4 Urinalysis showed 30 mg of protein, 5 ketones, 4 red blood cells, 7 whiteblood cells, 17 squamous cells urine tox screen from January 24 was essentially negative. Salicylate level from yesterday was normal at 0.8, and Tylenol was negative. Ethyl alcohol was elevated at 0.33 chest x-ray was normal on January 24. CT of the abdomen from January 24, shows a small hiatal hernia, and mild fatty liver infiltration. Gallbladder, spleen, pancreas all appeared normal. Medical - DS: A/P - Patient/Caregiver Discharge Instructions Activity: increase activity as tolerated, other (avoid driving until alcohol withdrawalis complete, and complete abstinence are maintained.) Diet: Regular Diet Additional Instructions: #1. Review with nurses before you leave how to know when to take more Ativan for your withdrawal symptoms. Generally this is used for increasing anxiety, agitation, tremor hallucinations fast heart rate. Use Zofran as needed for nausea. -Please avoid driving until you have been completely abstinent from alcohol for 2 weeks. #2. Tobacco. Pleaseavoid smoking. Please use the nicotine patch every morning. He can remove this at night if it gets to bed dreams. #3. You have abnormal red and white blood cell counts, likely due to the effect of alcohol on your bone marrow Please add a B complex supplement as well as an iron supplement to help your bone marrow replace blood. -please also try to eat a well-balanced diet 2-3 times a day, that includes fruits and vegetables and at least some protein #4. Please check in with her primary care provider next week,and ask her to check a follow-up CBC sometime soon. - Follow up Plan Follow up with: Vivian Olivarez ARNP [Primary Care Provider] - Disposition: Home, Self-Care Prognosis: Good Rehab Potential: Good Overall status at discharge: patient is progressing back to baseline Medical - DS: Qual - VTE Deep Vein Thrombosis/Pulmonary Embolism Present on Admission: No
== END 2017-01-26 13:00 | disposition home or self-care (01) | DRG 896 ==
LOC: ED 06:27 → ICU 10:25 → SUATTDRO 10:25 → ICU 10:30
PROVIDERS: ADMIT Internal Medicine; ATTEND Internal Medicine

== ENCOUNTER 2018-11-08 18:39 | Inpatient (IN) ==
[2018-11-08] MEDS ORDERED: LACTATED RINGERS 1,000 ML IV ONE (19:01)
[2018-11-08] MEDS ORDERED: ONDANSETRON 4 MG/2 ML VIAL IV ONE (19:01)
[2018-11-08] MEDS ORDERED: LORazepam 2 MG/ML VIAL IV ONE ×2 (19:01→22:13)
--- NOTE | 2018-11-08 19:03 | Emergency Department Note ---
Nausea/Vomiting/Diarrhea HPI - General Chief complaint: Nausea/Vomiting/Diarrhea Stated complaint: "I'm Detoxing from alcohol." Time Seen by Provider: 11/08/18 18:59 Source: patient Mode of arrival: ambulatory Limitations: no limitations - History of Present Illness HPI Narrative: This patient has been drinking heavily for 10 days and would like to try to detox. Last drink was last night. She is having a lot of nausea vomiting and abdominal pain this evening. Sounds like she is been a heavy drinker in the past. - Related Data Home Medications Medication Instructions Recorded Confirmed Zolpidem Tartrate [Ambien Cr] 12.5 mg PO HS 01/05/17 10/15/18 Cymbalta 60 mg PO QDAY 01/24/17 02/09/17 Previous Rx's Medication Instructions Recorded Cyanocobalamin/FA/Pyridoxine [B 1 each PO DAILY #1 tablet 01/26/17 Complex-Folic Acid Tablet] LORazepam [Ativan] 1 mg PO Q8HP #12 tablet 01/26/17 Nicotine [Nicoderm] 14 mg TOPICAL DAILY@1000 #30 patch 01/26/17 LORazepam [Ativan] 1 mg PO Q8HP #15 tablet 02/09/17 LORazepam [Ativan] 1 mg PO Q4HP PRN #8 tab 10/15/18 Ondansetron [Zofran ODT] 4 mg SL Q4-6HP PRN #10 tab 10/15/18 Pantoprazole [Protonix] 40 mg PO QAMAC #5 tab 10/15/18 Allergies Allergy/AdvReac Type Severity Reaction Status Date / Time morphine AdvReac Mild Anxiety Verified 11/09/18 06:15 promethazine [From Phenergan] AdvReac Mild Agitated Verified 11/09/18 06:15 trazodone AdvReac Mild nerve pain Verified 10/15/18 17:55 in neck Review of Systems All systems ED: reviewed and negative except as stated. Past Medical History - Past Medical History PMFSH Narrative: Medical History Pancreatitis, acute (Acute) Alcohol abuse (Acute) Anxiety disorder (Acute) Alcohol withdrawal (Acute) Epigastric pain (Acute) Alcohol withdrawal (Acute) Aspiration pneumonia (Acute) Alcohol withdrawal seizure (Acute) Dehydration (Acute) Community acquired pneumonia (Acute) Muscle spasm (Acute) Alcohol withdrawal delirium (Acute) Pancreatitis (Acute) Nausea & vomiting (Acute) Gastroenteritis (Acute) Medical history: Reports: asthma, GERD, seizures, other (alcohol abuse, pancreatitis, alcohol withdrawal) Psychiatric history: Reports: anxiety Surgical history ED: Reports: tonsillectomy, other (breast augmentation) - Social History smoking status: Current every day smoker Alcohol use: Reports: Heavy, Recent Drug use: Reports: marijuana Physical Exam Limitations: no limitations General appearance: alert Head: atraumatic Eye: Present: normal appearance ENT: normal exam Neck: Present: normal inspection Chest: Present: normal inspection Respiratory: Present: normal lung sounds bilaterally Cardiovascular: Present: regular rate, normal rhythm, normal heart sounds Abdominal: Present: soft, tenderness. Absent: distention Abdominal tenderness: Present: diffuse, moderate Neurological: Present: alert Psychiatric: Present: normal affect Skin: Present: warm, dry, intact Course Vital Signs Pulse Rate 93 H 11/08/18 18:51 Blood Pressure 140/96 11/08/18 18:51 Pulse Oximetry (%) 96 11/08/18 18:51 Temperature 98.9 F 11/09/18 05:23 Pulse Rate 88 11/09/18 05:01 Respiratory Rate 10 L 11/09/18 05:23 Blood Pressure 138/84 11/09/18 05:01 Pulse Oximetry (%) 93 11/09/18 05:23 Nausea/Vomiting/Diarrhea - MDM Narrative Medical decision making narrative: We had a difficult time controlling this patient's nausea and vomiting and so she was admitted to the hospital by Dr. Durant - Lab Data Lab results reviewed: Yes I reviewed the patient's lab results. Result diagrams: 11/08/18 19:11 11/08/18 19:11 Lab Results 11/08/18 11/08/18 11/08/18 Range/Units 19:10 19:10 19:11 WBC 10.9 (4.5-11.0) K/mcL RBC 4.70 (4.00-5.20) M/mcL Hgb 14.3 (12.0-15.0) g/dL Hct 42.8 (36.0-48.0) % MCV 91.2 (80.0-100.0) fL MCH 30.5 (26.0-34.0) pg MCHC 33.4 (31.0-36.0) g/dL RDW 13.6 (11.5-14.5) % Plt Count 339 (140-440) K/mcL MPV 8.1 (7.4-10.4) fL Gran % 82.7 H (38.0-78.0) % Lymph % (Auto) 12.4 L (15.5-49.0) % Luce % (Auto) 4.4 (1.0-12.0) % Eos % (Auto) 0.2 (0.0-7.0) % Baso % (Auto) 0.3 (0.0-2.0) % Gran # 9.0 H (1.8-8.0) K/mcL Lymph # (Auto) 1.4 L (1.5-4.8) K/mcL Luce # (Auto) 0.5 (0.1-0.9) K/mcL Eos # (Auto) 0 (0.0-0.7) K/mcL Baso # (Auto) 0 (0.0-0.3) K/mcL Sodium (133-145) mmol/L Potassium (3.3-5.1) mmol/L Chloride (96-108) mmol/L Carbon Dioxide (22-30) mmol/L Anion Gap (8-16) BUN (6-20) mg/dl Creatinine (0.6-1.1) mg/dl GFR Calculation Glucose (70-105) mg/dL Calcium (8.6-10.4) mg/dl Total Bilirubin (0.0-1.0) mg/dL AST (0-37) U/l ALT (0-40) U/l Alkaline Phosphatase (39-117) U/L Total Protein (5.9-8.4) gm/dL Albumin (3.2-5.2) gm/dL Globulin (2.2-3.7) gm/dL Albumin/Globulin Ratio (1.0-2.3) Lipase (7-60) U/L Urine Color Yellow Urine Appearance Clear Urine pH 6.0 (5.0-9.0) Ur Specific [place] 1.015 (1.000-1.035) Urine Protein Neg (NEG) mg/dL Urine Glucose (UA) Negative (NEG) mg/dL Urine Ketones Neg (NEG) mg/dL Urine Occult Blood >=1.0 A (<0.03) mg/dL Urine Nitrate Neg (NEG) Urine Bilirubin Neg (NEG) mg/dL Urine Urobilinogen Neg (NEG) mg/dL Ur Leukocyte Esterase Neg (NEG) /uL Urine RBC 4 H (0-1) /hpf Urine WBC 3 (0-4) /hpf Ur Squamous Epith Cells 7 H (0-4) /hpf Urine Bacteria Few A (0) /hpf Urine Mucus Few (0) /hpf Ur Culture Indicated? No Urine Opiates Screen None detected (NONDETECTED) Ur Opiates Confirm Not Reportable Ur Oxycodone Screen None detected (NONDETECTED) Urine Methadone Screen None detected (NONDETECTED) Ur Methadone Confirm Not Reportable Ur Barbiturates Screen None detected (NONDETECTED) Ur Barbiturate Confirm Not Reportable Ur Phencyclidine Scrn None detected (NONDETECTED) Urine PCP Confirm Not Reportable Ur Amphetamines Screen None detected (NONDETECTED) U Amphetamines Confirm Not Reportable U Benzodiazepines Scrn None detected (NONDETECTED) U Benzodiazepine Confm Not Reportable Urine Cocaine Screen None detected (NONDETECTED) Urine Cocaine Confirm Not Reportable U Cannabinoids Confirm Not Reportable U Marijuana (THC) Screen None detected (NONDETECTED) Ethyl Alcohol (<0.010) gm/dl 11/08/18 11/08/18 Range/Units 19:11 19:11 WBC (4.5-11.0) K/mcL RBC (4.00-5.20) M/mcL Hgb (12.0-15.0) g/dL Hct (36.0-48.0) % MCV (80.0-100.0) fL MCH (26.0-34.0) pg MCHC (31.0-36.0) g/dL RDW (11.5-14.5) % Plt Count (140-440) K/mcL MPV (7.4-10.4) fL Gran % (38.0-78.0) % Lymph % (Auto) (15.5-49.0) % Luce % (Auto) (1.0-12.0) % Eos % (Auto) (0.0-7.0) % Baso % (Auto) (0.0-2.0) % Gran # (1.8-8.0) K/mcL Lymph # (Auto) (1.5-4.8) K/mcL Luce # (Auto) (0.1-0.9) K/mcL Eos # (Auto) (0.0-0.7) K/mcL Baso # (Auto) (0.0-0.3) K/mcL Sodium 140 (133-145) mmol/L Potassium 3.6 (3.3-5.1) mmol/L Chloride 98 (96-108) mmol/L Carbon Dioxide 21 L (22-30) mmol/L Anion Gap 21.0 H (8-16) BUN 13 (6-20) mg/dl Creatinine 1.0 (0.6-1.1) mg/dl GFR Calculation 72 Glucose 119 H (70-105) mg/dL Calcium 8.5 L (8.6-10.4) mg/dl Total Bilirubin 0.4 (0.0-1.0) mg/dL AST 130 H (0-37) U/l ALT 70 H (0-40) U/l Alkaline Phosphatase 65 (39-117) U/L Total Protein 6.7 (5.9-8.4) gm/dL Albumin 4.3 (3.2-5.2) gm/dL Globulin 2.4 (2.2-3.7) gm/dL Albumin/Globulin Ratio 1.8 (1.0-2.3) Lipase 37 (7-60) U/L Urine Color Urine Appearance Urine pH (5.0-9.0) Ur Specific [place] (1.000-1.035) Urine Protein (NEG) mg/dL Urine Glucose (UA) (NEG) mg/dL Urine Ketones (NEG) mg/dL Urine Occult Blood (<0.03) mg/dL Urine Nitrate (NEG) Urine Bilirubin (NEG) mg/dL Urine Urobilinogen (NEG) mg/dL Ur Leukocyte Esterase (NEG) /uL Urine RBC (0-1) /hpf Urine WBC (0-4) /hpf Ur Squamous Epith Cells (0-4) /hpf Urine Bacteria (0) /hpf Urine Mucus (0) /hpf Ur Culture Indicated? Urine Opiates Screen (NONDETECTED) Ur Opiates Confirm Ur Oxycodone Screen (NONDETECTED) Urine Methadone Screen (NONDETECTED) Ur Methadone Confirm Ur Barbiturates Screen (NONDETECTED) Ur Barbiturate Confirm Ur Phencyclidine Scrn (NONDETECTED) Urine PCP Confirm Ur Amphetamines Screen (NONDETECTED) U Amphetamines Confirm U Benzodiazepines Scrn (NONDETECTED) U Benzodiazepine Confm Urine Cocaine Screen (NONDETECTED) Urine Cocaine Confirm U Cannabinoids Confirm U Marijuana (THC) Screen (NONDETECTED) Ethyl Alcohol 0.107 H (<0.010) gm/dl Disposition Pt seen by ADJUSTO WRITER OPERATOR/PA only: No Clinical Impression: Alcohol withdrawal, Gastritis Disposition: Xfer As Inpt ([facility]) Condition: Undetermined
[2018-11-08] MEDS: HYDROmorphone 2 MG/ML VIAL IV PRN ×2 (19:12→20:08)
[2018-11-08] MEDS ORDERED: METOCLOPRAMIDE 10 MG/2 ML VIAL IV ONE ×3 (19:27→22:13)
[2018-11-08 20:01] LABS: Basophils # (Auto) 0 K/mcL (0.0-0.3); Basophils % (Auto) 0.3 % (0.0-2.0); Eosinophils # (Auto) 0 K/mcL (0.0-0.7); Eosinophils % (Auto) 0.2 % (0.0-7.0); Granulocytes % (Auto) 82.7 % (38.0-78.0); Lymphocytes # (Auto) 1.4 K/mcL (1.5-4.8); Lymphocytes % (Auto) 12.4 % (15.5-49.0); Mean Cell Volume 91.2 fL (80.0-100.0); Mean Corpuscular HGB Conc 33.4 g/dL (31.0-36.0); Monocytes # (Auto) 0.5 K/mcL (0.1-0.9); Monocytes % (Auto) 4.4 % (1.0-12.0); Platelet Count 339 K/mcL (140-440); Red Cell Distribution Width 13.6 % (11.5-14.5)
[2018-11-08 20:03] LABS: Appearance,Urine CLEAR; Bacteria,Urine FEW /hpf (0); Bilirubin,Urine NEG (NEG); Color,Urine YELLOW; Glucose,Urine (UA) NEGATIVE (NEG); Leukocyte Esterase,Urine NEG /uL (NEG); Mucus,Urine FEW /hpf (0); Protein,Urine NEG (NEG); Specific Gravity,Urine 1.015 (1.000-1.035); Urine Blood >=1.0 mg/dL (<0.03); Urine RBC 4 /hpf (0-1); Urine Squamous Epithelial Cell 7 /hpf (0-4); Urine WBC 3 /hpf (0-4); Urobilinogen,Urine NEG (NEG)
[2018-11-08 20:36] LABS: ALT/SGPT 70 U/l (0-40); Albumin 4.3 gm/dL (3.2-5.2); Albumin/Globulin Ratio 1.8 (1.0-2.3); Alkaline Phosphatase 65 U/L (39-117); Blood Urea Nitrogen 13 mg/dl (6-20); Lipase 37 U/L (7-60)
[2018-11-08] MEDS ORDERED: diphenhydrAMINE 50 MG/ML VIAL IV ONE (23:13)
[2018-11-08] MEDS ORDERED: PANTOPRAZOLE 40 MG VIAL IV ONE (23:13)
[2018-11-08] MEDS ORDERED: 0.9 % SODIUM CHLORIDE 1,000 ML IV ONE (23:24)
[2018-11-08] MEDS ORDERED: POTASSIUM CHLORIDE 20 MEQ, MAGNESIUM SULFATE 16.24 MEQ, THIAMINE 100 MG, MVI, ADULT NO.... IV SCH (23:45)
[2018-11-09 00:34] LABS: Amphetamine Screen,Urine NONE DETECTED (NONDETECTED); Benzodiazepines Screen,Urine NONE DETECTED (NONDETECTED); Cocaine Screen,Urine NONE DETECTED (NONDETECTED); Opiate Screen,Urine NONE DETECTED (NONDETECTED); Oxycodone, Urine Screen NONE DETECTED (NONDETECTED)
--- NOTE | 2018-11-09 00:43 | Internal Med History&Physical ---
Medical - H&P: HPI Patient information: Note initiated : 11/09/18 at 12:38 am Service Date, if different from initiated Date: [] Patient: Tameka Cody a 38 y/o F admitted on for "I'm Detoxing from alcohol.". Chief Complaint: [] History of present illness: Ms. Cody is a 38 year old F with history of alcohol use, who has been clean for the last 3 months. The patient notes she broke up with the boyfriend and start ed drinking again a week ago. She has been drinking 15 beers a day. Last drink was last night. Since this morning she notes she has been having nausea vomiting and abdominal pain. Pain is all over the abdomen started after she had vomiting. This has progressively gotten worse, patient also feels anxious and therefore came to the emergency room for further evaluation. She noted that she is withdrawing from alcohol and has withdrawn from alcohol in the past. The patient notes that she has had multiple episodes of vomiting, some streaks of blood in that. She also has diarrhea with some streaks of blood in that. Denies any melanotic black stools or clots of blood in the stool. The patient overall feels weak, has some headache, tremors and generalized aches. She denies any fevers chest pain shortness of breath changes in vision or difficulty in swallowing, admits to having anxiety is depressed, denies any swelling of joints bleeding from any other orifice. In the emergency room patient was afebrile, heart rate 98 blood pressure 143/90, respirations 20 saturating 95% on room air. WC count is 10.9 hemoglobin 14 platelets 339, sodium 140 potassium 3.6 bicarbonate 21 creatinine 1 AST 130 ALT 70 UA is negative for any infection alcohol level is 0.107 Patient has received multiple rounds of Reglan and Zofran, IV pantoprazole without much relief her symptoms. She also received some Ativan. Patient is therefore being admitted to the hospital with a diagnosis of intractable nausea vomiting alcohol withdrawal All systems: reviewed and no additional remarkable complaints except as stated (as per HPI rest negative) Medical - H&P: PMH Medical history: Medical History Pancreatitis, acute (Acute) Alcohol abuse (Acute) Anxiety disorder (Acute) Alcohol withdrawal (Acute) Epigastric pain (Acute) Alcohol withdrawal (Acute) Aspiration pneumonia (Acute) Alcohol withdrawal seizure (Acute) Dehydration (Acute) Community acquired pneumonia (Acute) Muscle spasm (Acute) Alcohol withdrawal delirium (Acute) Pancreatitis (Acute) Nausea & vomiting (Acute) Gastroenteritis (Acute) Family history: reviewed and not pertinent Social history: active smoker denies other drug use heavy etoh drinker Medical - H&P: Meds Home Medications Medication Instructions Recorded Confirmed Type Zolpidem Tartrate [Ambien Cr] 12.5 mg PO HS 01/05/17 10/15/18 History Cymbalta 60 mg PO QDAY 01/24/17 02/09/17 History Cyanocobalamin/FA/Pyridoxine [B 1 each PO DAILY #1 tablet 01/26/17 02/09/17 Rx Complex-Folic Acid Tablet] LORazepam [Ativan] 1 mg PO Q8HP #12 tablet 01/26/17 02/09/17 Rx Nicotine [Nicoderm] 14 mg TOPICAL DAILY@1000 #30 patch 01/26/17 02/09/17 Rx LORazepam [Ativan] 1 mg PO Q8HP #15 tablet 02/09/17 Rx LORazepam [Ativan] 1 mg PO Q4HP PRN #8 tab 10/15/18 Rx Ondansetron [Zofran ODT] 4 mg SL Q4-6HP PRN #10 tab 10/15/18 Rx Pantoprazole [Protonix] 40 mg PO QAMAC #5 tab 10/15/18 Rx Allergies Allergy/AdvReac Type Severity Reaction Status Date / Time morphine AdvReac Intermediate Anxiety Verified 10/15/18 17:55 promethazine [From Phenergan] AdvReac Intermediate Agitated Verified 10/15/18 17:55 trazodone AdvReac Mild nerve pain Verified 10/15/18 17:55 in neck Medical - H&P: Exam - Constitutional Vitals: Pulse Resp BP Pulse Ox 88 17 132/89 97 11/09/18 00:16 11/08/18 23:01 11/09/18 00:16 11/09/18 00:16 Exam: GENERAL: The patient is a well-developed, well-nourished in no apparent distress. Is alert and oriented x3. VITAL SIGNS: Reviewed and as noted elsewhere. HEENT: Head is normocephalic and atraumatic. Extraocular muscles are intact. Pupils are equal, round, and reactive to light. Nares appeared normal. Mouth appears any without lesions. Mucous membranes are moist. NECK: Normal to inspection, Supple, No lymphadenopathy or thyromegaly. LUNGS: Air entry equal on both sides, no wheezing, crackles or rhonchi noted. No accessory muscles of respiration HEART: Regular rate and rhythm normal, S1 and S2 heard, no Gallop, S3 or Rub Noted, No Gross murmur heard. ABDOMEN: Soft, nontender, and nondistended. Positive bowel sounds. No hepatosplenomegaly was noted. EXTREMITIES: No cyanosis, clubbing, rash, lesions or edema. NEUROLOGIC: Cranial nerves II through XII are grossly intact. Motor and Sensory System Grossly Intact PSYCHIATRIC: Normal affect, Normal Mood. Appropriate Behavior. SKIN: No ulceration or wounds noted, No jaundice, No rash noted. Medical - H&P: Reslt - Labs CBC & Chem 7: 11/08/18 19:11 11/08/18 19:11 Labs: Short CBC 11/08/18 Range/Units 19:11 WBC 10.9 (4.5-11.0) K/mcL Hgb 14.3 (12.0-15.0) g/dL Hct 42.8 (36.0-48.0) % Plt Count 339 (140-440) K/mcL BMP 11/08/18 19:11 Sodium 140 Potassium 3.6 Chloride 98 Carbon Dioxide 21 L BUN 13 Creatinine 1.0 Glucose 119 H Calcium 8.5 L Liver Function 11/08/18 Range/Units 19:11 Total Bilirubin 0.4 (0.0-1.0) mg/dL AST 130 H (0-37) U/l ALT 70 H (0-40) U/l Alkaline Phosphatase 65 (39-117) U/L Albumin 4.3 (3.2-5.2) gm/dL Urine 11/08/18 Range/Units 19:10 Urine Color Yellow Urine Appearance Clear Urine pH 6.0 (5.0-9.0) Ur Specific Morris 1.015 (1.000-1.035) Urine Protein Neg (NEG) mg/dL Urine Glucose (UA) Negative (NEG) mg/dL Medical - H&P: A/P - Narrative A/P Narrative: A/P Alcohol withdrawal Intractable nausea/vomiting anxiety abnormal lft abdominal pain Plan Admit to tele, high risk of worsening, given she is withdrawing with alcohol still in her system and within 24 hrs banana bag ordered [facility] protocol IV Valium x 1 for now, IV ativan prn per ciwa Zofran/reglan for nausea vomiting IV ppi Replace lytes aggressively IV fluids DVT hep sq Diet regular Full code.
[2018-11-09] MEDS ORDERED: POTASSIUM CHLORIDE 40 MEQ in DEXTROSE 5% IN WATER 500 ML IV ONE (00:46)
[2018-11-09] MEDS ORDERED: NICOTINE 14 MG PATCH TOPICAL ONE (01:07)
[2018-11-09] MEDS ORDERED: DIAZEPAM 5 MG/ML VIAL IV ONE (01:07)
[2018-11-09] MEDS ORDERED: POTASSIUM CHLORIDE 20 MEQ, MAGNESIUM SULFATE 16.24 MEQ, THIAMINE 100 MG, MVI, ADULT NO.... IV SCH (01:07)
[2018-11-09] MEDS ORDERED: NALOXONE HCL 0.4 MG/ML VIAL IV PRN ×2 (01:07→08:30)
[2018-11-09] MEDS ORDERED: ONDANSETRON 4 MG/2 ML VIAL IV PRN (01:07)
[2018-11-09] MEDS ORDERED: LORazepam 2 MG/ML VIAL IV PRN (01:07)
[2018-11-09] MEDS ORDERED: cloNIDine HCL 0.1 MG TABLET PO PRN ×2 (01:07→08:30)
[2018-11-09] MEDS ORDERED: POTASSIUM CHLORIDE 20 MEQ/10 ML VIAL IV ONE ×2 (01:09→01:20)
[2018-11-09] MEDS ORDERED: MAGNESIUM SULFATE 8.12 MEQ/2 ML VIAL ONE (01:09)
[2018-11-09] MEDS ORDERED: DIAZEPAM 5 MG/ML VIAL ONE (01:18)
[2018-11-09] MEDS ORDERED: NICOTINE 14 MG PATCH ONE (01:20)
[2018-11-09] MEDS: DEXTROSE 5%-1/2NS 1,000 ML IV SCH ×5 (01:39→21:05)
[2018-11-09] MEDS ORDERED: LORazepam 2 MG/ML VIAL ONE (04:41)
[2018-11-09] MEDS ORDERED: ONDANSETRON 4 MG/2 ML VIAL ONE (04:44)
[2018-11-09] MEDS ORDERED: HYDROmorphone 2 MG/ML VIAL ONE (05:09)
[2018-11-09] MEDS: HYDROmorphone 2 MG/ML VIAL IV PRN ×2 (05:11→07:28)
[2018-11-09] MEDS ORDERED: 0.9 % SODIUM CHLORIDE 10 ML SYRINGE IV SCH ×3 (06:00→14:00)
[2018-11-09] MEDS ORDERED: PANTOPRAZOLE 40 MG VIAL IV SCH (07:30)
[2018-11-09] MEDS ORDERED: METOCLOPRAMIDE 10 MG/2 ML VIAL IV SCH (07:30)
--- NOTE | 2018-11-09 08:05 | XRay Report ---
HISTORY: Abdominal pain FINDINGS: The bowel gas pattern is normal. No free intra-abdominal air is present. There is no apparent soft tissue mass or abnormal calcification. There is a transitional vertebra at L5 which forms a pseudoarthrosis with the top of the sacrum on the left side. IMPRESSION: Normal exam Interpreted and Authenticated by: Jimmie Hamlin 11/09/18
[2018-11-09] MEDS ORDERED: KETOROLAC 15 MG/ML VIAL IV PRN ×2 (08:16→08:30)
[2018-11-09] MEDS ORDERED: FOLIC ACID/VITAMIN B COMP W-C 1 TAB TABLET PO SCH (09:00)
[2018-11-09] MEDS ORDERED: HEPARIN 5,000 UNIT/ML VIAL SQ SCH (09:00)
[2018-11-09] MEDS ORDERED: THIAMINE 100 MG TABLET PO SCH (09:00)
[2018-11-09] MEDS: FOLIC ACID/VITAMIN B COMP W-C 1 TAB TABLET PO SCH (09:12)
[2018-11-09] MEDS: NICOTINE 14 MG PATCH TOPICAL SCH (09:12)
[2018-11-09] MEDS: HEPARIN 5,000 UNIT/ML VIAL SQ SCH ×2 (09:12→20:18)
[2018-11-09] MEDS: THIAMINE 100 MG TABLET PO SCH (09:12)
[2018-11-09 09:17] LABS: ALT/SGPT 48 U/l (0-40); Albumin 3.6 gm/dL (3.2-5.2); Albumin/Globulin Ratio 1.9 (1.0-2.3); Alkaline Phosphatase 59 U/L (39-117); Bilirubin,Direct < 0.2 mg/dL (0.0-0.3); Blood Urea Nitrogen 10 mg/dl (6-20); Gamma Glutamyl Transpeptidase 21 U/L (5-36); Uric Acid 3.2 mg/dL (2.5-8.0)
[2018-11-09] MEDS: KETOROLAC 30 MG/ML VIAL IV PRN ×2 (09:19→17:03)
[2018-11-09 09:20] LABS: Basophils # (Auto) 0 K/mcL (0.0-0.3); Basophils % (Auto) 0.2 % (0.0-2.0); Eosinophils # (Auto) 0 K/mcL (0.0-0.7); Eosinophils % (Auto) 0.2 % (0.0-7.0); Granulocytes % (Auto) 73.6 % (38.0-78.0); Lymphocytes # (Auto) 1.7 K/mcL (1.5-4.8); Lymphocytes % (Auto) 19.6 % (15.5-49.0); Mean Cell Volume 91.1 fL (80.0-100.0); Mean Corpuscular HGB Conc 33.8 g/dL (31.0-36.0); Monocytes # (Auto) 0.5 K/mcL (0.1-0.9); Monocytes % (Auto) 6.4 % (1.0-12.0); Platelet Count 213 K/mcL (140-440); Red Cell Distribution Width 13.5 % (11.5-14.5)
[2018-11-09] MEDS ORDERED: NICOTINE 14 MG PATCH TOPICAL SCH (10:00)
[2018-11-09] MEDS: METOCLOPRAMIDE 10 MG/2 ML VIAL IV SCH ×3 (11:54→20:15)
[2018-11-09] MEDS: LORazepam 2 MG/ML VIAL IV PRN ×2 (11:54→16:38)
--- NOTE | 2018-11-09 13:08 | Internal Med Progress Note ---
Medical - PN: Subj Patient information: Note initiated : 11/09/18 at 1:06 pm Service Date, if different from initiated Date: [] Patient: Tameka Cody a 38 y/o F admitted on 11/09/18 for "I'm Detoxing from alcohol.". Chief Complaint: [] Interval history: Ms. Cody is a 38 year old F with history of alcohol use, who has been clean for the last 3 months. The patient notes she broke up with the boyfriend and started drinking again a week ago. She has been drinking 15 beers a day. Last drink was last night. Since this morning she notes she has been having nausea vomiting and abdominal pain. Pain is all over the abdomen started after she had vomiting. This has progressively gotten worse, patient also feels anxious and therefore came to the emergency room for further evaluation. She noted that she is withdrawing from alcohol and has withdrawn from alcohol in the past. The patient notes that she has had multiple episodes of vomiting, some streaks of blood in that. She also has diarrhea with some streaks of blood in that. Denies any melanotic black stools or clots of blood in the stool. The patient overall feels weak, has some headache, tremors and generalized aches. She denies any fevers chest pain shortness of breath changes in vision or difficulty in swallowing, admits to having anxiety is depressed, denies any swelling of joints bleeding from any other orifice. In the emergency room patient was afebrile, heart rate 98 blood pressure 143/90, respirations 20 saturating 95% on room air. WC count is 10.9 hemoglobin 14 platelets 339, sodium 140 potassium 3.6 bicarbonate 21 creatinine 1 AST 130 ALT 70 UA is negative for any infection alcohol level is 0.107 Patient has received multiple rounds of Reglan and Zofran, IV pantoprazole without much relief her symptoms. She also received some Ativan. Patient is therefore being admitted to the hospital with a diagnosis of intractable nausea vomiting alcohol withdrawal 11/09 Patient seen and examined, still has some nausea but no vomiting. Clinically doing much better and feels better compared to yesterday. Still has some abdominal pain in the lower abdomen x-ray abdomen was negative. Labs are stable. Transfer the patient to [facility]. CIWA scores have been low Pertinent ROS: Denies headache, dizziness Denies chest pain, palpitations Denies cough or shortness of breath Abdominal pain and nausea present no vomiting. Improved compared to yesterday, cramping in nature, pt having her menstrual cycle. - Constitutional Vitals: Vital Signs Temp Pulse Resp BP Pulse Ox 96.4 F L 83 14 132/86 100 11/09/18 11:30 11/09/18 11:30 11/09/18 11:30 11/09/18 11:30 11/09/18 11:30 Period Temp Pulse Resp BP Sys/Lomeli Pulse Ox Last 24 Hr 96.4 F-98.9 F 76-110 10-25 108-143/67-119 92-100 Intake and Output 11/08/18 11/09/18 11/09/18 21:59 05:59 13:59 Intake Total 1000 1000 1355 Output Total 400 100 Balance 0352 952 4573 Weight 135 lb 141 lb 1.6 oz Intake & Output: Intake & Output 11/08/18 11/09/18 11/09/18 21:59 05:59 13:59 Intake Total 1000 1000 1355 Output Total 400 100 Balance 4192 005 6734 Weight 135 lb 141 lb 1.6 oz Intake: IV 1000 1000 875 Sodium Chloride 0.9% 1,000 ml @ 1000 Wide Open IV BOLUS ONE Rx#: [id number] Dextrose 5%-1/2Ns IV Solution 1 875 ,000 ml @ 150 mls/hr IV .Q6H40M [facility] Rx#:[id number] Lactated Ringers 1,000 ml @ 1000 Wide Open IV BOLUS ONE Rx#: [id number] Oral 480 Output: Urine Catheter Amount 100 Void Amount 400 Other: Percent of Meal Consumed 75% Urine Appearance Sediment Urine Color Dark Yellow Light Rosalind Blood Tinged Exam: Constitutional; Afebrile, cooperative, alert, not in distress. Respiratory system: Air Entry equal on both sides, No crackles or wheezing, no rhonchi. CVS- Rate rhythm regular, S1,S2 heard, no gallop, no rub. Abdomen- Soft nontender abdomen, no organomegaly, no tenderness, no guarding or rigidity, CONTAINER REPAIRER- AOOx3, moving all extremities, no gross focal deficit noted. Medical - PN: Obj Da - Labs CBC & Chem 7: 11/09/18 08:15 11/09/18 08:15 Labs: Abnormal Lab Results 11/09/18 11/09/18 11/08/18 08:15 08:15 19:11 RBC 3.70 L Hgb 11.4 L Hct 33.7 L Gran % Lymph % (Auto) Gran # Lymph # (Auto) Carbon Dioxide Anion Gap 7.0 L Glucose 120 H Calcium 7.5 L Phosphorus 2.4 L AST 66 H ALT 48 H Total Protein 5.5 L Globulin 1.9 L Urine Occult Blood Urine RBC Ur Squamous Epith Cells Urine Bacteria Ethyl Alcohol 0.107 H 11/08/18 11/08/18 11/08/18 19:11 19:11 19:10 RBC Hgb Hct Gran % 82.7 H Lymph % (Auto) 12.4 L Gran # 9.0 H Lymph # (Auto) 1.4 L Carbon Dioxide 21 L Anion Gap 21.0 H Glucose 119 H Calcium 8.5 L Phosphorus AST 130 H ALT 70 H Total Protein Globulin Urine Occult Blood >=1.0 A Urine RBC 4 H Ur Squamous Epith Cells 7 H Urine Bacteria Few A Ethyl Alcohol Meds: Medications Clonidine HCl (Catapres) 0.1 mg PO Q4HP PRN PRN Reason: Alcohol Withdrawal Heparin Sodium (Porcine) (Heparin) 5,000 unit SQ Q12 [facility] Last Admin: 11/09/18 09:12 Dose: 5,000 unit Documented by: Dextrose/Sodium Chloride (Dextrose 5%-1/2ns Iv Solution) 1,000 mls @ 150 mls/hr IV .Q6H40M [facility] Last Admin: 11/09/18 08:39 Dose: Not Given Documented by: Ketorolac Tromethamine (Toradol) 15 mg IV Q6HP PRN PRN Reason: Pain Stop: 11/11/18 08:16 Last Admin: 11/09/18 09:19 Dose: 15 mg Documented by: Lorazepam (Ativan) 0 mg IV Q4HP PRN; Protocol PRN Reason: Alcohol Withdrawal Last Admin: 11/09/18 11:54 Dose: 2 mg Documented by: Metoclopramide HCl (Reglan) 10 mg IV ACHS [facility] Last Admin: 11/09/18 11:54 Dose: 10 mg Documented by: Multivit/Ca Carb/B Cmplx/FA/Prenat (Diatx) 1 tab PO DAILY [facility] Last Admin: 11/09/18 09:12 Dose: 1 tab Documented by: Naloxone HCl (Narcan) 0.1 mg IV Q2MIN PRN PRN Reason: Opiate Reversal Nicotine (Nicoderm) 14 mg TOPICAL DAILY@1000 [facility] Last Admin: 11/09/18 09:12 Dose: 14 mg Documented by: Ondansetron HCl (Zofran) 4 mg IV Q4HP PRN PRN Reason: Nausea And Vomiting Pantoprazole Sodium (Protonix) 40 mg IV BIDAC [facility] Sodium Chloride (Saline Flush) 10 ml IV Q8 [facility] Thiamine HCl (Vitamin B1) 100 mg PO DAILY [facility] Last Admin: 11/09/18 09:12 Dose: 100 mg Documented by: Medical - PN: A/P - Time Spent With Patient Total time spent is greater than 50% in coordination of care (as documented) at patient's floor/unit and/or counseling patient: - Narrative A/P Narrative: A/P Alcohol withdrawal Intractable nausea/vomiting anxiety abnormal lft abdominal pain Plan xfer to med surg continue ciwa protocol. IV ativan prn per ciwa Zofran/reglan for nausea vomiting switch dilaudid to ketorolac given possible menstrual pain. IV ppi Replace lytes aggressively IV fluids DVT hep sq Diet regular Full code. Medical - PN: Qual - Stroke Symptom Onset Unknown: No - VTE Deep Vein Thrombosis/Pulmonary Embolism Present on Admission: No
[2018-11-09] MEDS: 0.9 % SODIUM CHLORIDE 10 ML SYRINGE IV SCH ×2 (13:49→22:10)
[2018-11-09] MEDS: PANTOPRAZOLE 40 MG VIAL IV SCH (16:38)
[2018-11-09] MEDS: ONDANSETRON 4 MG/2 ML VIAL IV PRN (18:51)
[2018-11-09] MEDS: ZOLPIDEM 5 MG TABLET PO PRN (20:17)
[2018-11-10] MEDS: ONDANSETRON 4 MG/2 ML VIAL IV PRN ×2 (02:57→22:21)
[2018-11-10] MEDS: KETOROLAC 30 MG/ML VIAL IV PRN (02:57)
[2018-11-10] MEDS: LORazepam 2 MG/ML VIAL IV PRN ×2 (03:05→07:13)
[2018-11-10] MEDS: DEXTROSE 5%-1/2NS 1,000 ML IV SCH ×3 (03:48→19:26)
[2018-11-10] MEDS: 0.9 % SODIUM CHLORIDE 10 ML SYRINGE IV SCH ×3 (05:00→20:56)
[2018-11-10 06:52] LABS: Basophils # (Auto) 0 K/mcL (0.0-0.3); Basophils % (Auto) 0.4 % (0.0-2.0); Eosinophils # (Auto) 0.1 K/mcL (0.0-0.7); Eosinophils % (Auto) 2.7 % (0.0-7.0); Granulocytes % (Auto) 58.8 % (38.0-78.0); Lymphocytes # (Auto) 1.6 K/mcL (1.5-4.8); Lymphocytes % (Auto) 31.5 % (15.5-49.0); Mean Cell Volume 91.8 fL (80.0-100.0); Mean Corpuscular HGB Conc 33.7 g/dL (31.0-36.0); Monocytes # (Auto) 0.3 K/mcL (0.1-0.9); Monocytes % (Auto) 6.6 % (1.0-12.0); Platelet Count 193 K/mcL (140-440); RBC 3.69 M/mcL (4.00-5.20); Red Cell Distribution Width 13.5 % (11.5-14.5)
[2018-11-10] MEDS: METOCLOPRAMIDE 10 MG/2 ML VIAL IV SCH ×4 (06:57→20:54)
[2018-11-10] MEDS: PANTOPRAZOLE 40 MG VIAL IV SCH ×2 (06:57→17:17)
[2018-11-10 07:14] LABS: ALT/SGPT 31 U/l (0-40); Albumin 3.2 gm/dL (3.2-5.2); Albumin/Globulin Ratio 1.5 (1.0-2.3); Alkaline Phosphatase 59 U/L (39-117); Bilirubin,Direct < 0.2 mg/dL (0.0-0.3); Blood Urea Nitrogen 10 mg/dl (6-20); Gamma Glutamyl Transpeptidase 20 U/L (5-36); Uric Acid 2.8 mg/dL (2.5-8.0)
[2018-11-10] MEDS ORDERED: PHENobarb/HYOSCY/ATROPINE/SCOP 1 DOSE BOTTLE PO PRN (08:56)
[2018-11-10] MEDS: oxyCODONE HCL 5 MG TABLET PO PRN ×2 (09:17→19:23)
[2018-11-10] MEDS: HEPARIN 5,000 UNIT/ML VIAL SQ SCH ×2 (09:18→20:53)
[2018-11-10] MEDS: THIAMINE 100 MG TABLET PO SCH (09:18)
[2018-11-10] MEDS: FOLIC ACID/VITAMIN B COMP W-C 1 TAB TABLET PO SCH (09:18)
[2018-11-10] MEDS: NEUTRA PHOS 1 PACKET PO SCH ×2 (09:18→20:51)
[2018-11-10] MEDS ORDERED: IOPAMIDOL 100 ML BOTTLE IV ONE (10:35)
[2018-11-10] MEDS: NICOTINE 14 MG PATCH TOPICAL SCH (10:51)
--- NOTE | 2018-11-10 11:14 | Cat Scan Report ---
CLINICAL INFORMATION: Alcohol withdrawal with abdominal pain, nausea and vomiting COMPARISON: 01/24/17 TECHNIQUE: Following oral contrast and the injection of intravenous contrast the patient was scanned during the portal venous phase from the diaphragm through the symphysis pubis. Sagittal and coronal reformats were created.. Radiation exposure was limited using dose reduction technology. FINDINGS: The liver is normal in size. There is very mild generalized fatty infiltration. No liver mass or cirrhosis are present. The spleen is normal in size and homogeneous. A small hiatus hernia is noted. The gallbladder is normal with no stones or thickening the wall. The bile ducts are nondilated. There is mild edema in the head and uncinate process of the pancreas. The pancreas is mildly swollen compared with prior CT done in 2017. There is also edema extending into the root of mesentery and surrounding the duodenum. Trace amount of ascites fluid is seen in the right anterior pararenal space. The second portion of the duodenum is abnormally dilated and measures up to 4.7 cm. The third and fourth portions are normal in caliber. There is mild mucosal thickening along the medial aspect of the second portion the duodenum. No ulcer is identified. There is no extravasation of contrast from the lumen of the stomach or small bowel. The jejunum and ileum appear normal. Contrast had not passed through the terminal ileum into the colon. There is a moderate amount stool in the cecum and ascending colon. The appendix is noninflamed. The kidneys are normal without evidence of inflammation, stone or hydronephrosis. The aorta and inferior vena cava are normal. There are multiple bubbles of air in the subcutaneous fat in the anterior abdominal wall. This may be due to recent subcutaneous injections. The uterus is retroverted. No abnormality is seen within the uterus and ovaries are urinary bladder. IMPRESSION: Edema and inflammation in the head and uncinate process of the pancreas and the adjacent second portion of the duodenum. This is probably due to pancreatitis with secondary inflammation of the duodenum and less likely peptic ulcer disease with secondary inflammation of the pancreas. Interpreted and Authenticated by: Jimmie Hamlin 11/10/18
[2018-11-10] MEDS: HYDROmorphone 2 MG/ML VIAL IV PRN ×6 (12:00→22:22)
[2018-11-10 12:26] LABS: Amylase 163 U/L (28-100); Lipase 406 U/L (7-60)
--- NOTE | 2018-11-10 14:53 | Internal Med Progress Note ---
Medical - PN: Subj Patient information: Note initiated : 11/10/18 at 2:51 pm Service Date, if different from initiated Date: [] Patient: Tameka Cody a 38 y/o F admitted on 11/09/18 for Alchohol withdrawl, nausea/vomiting. Chief Complaint: [] Interval history: Ms. Cody is a 38 year old F with history of alcohol use, who has been clean for the last 3 months. The patient notes she broke up with the boyfriend and s tarted drinking again a week ago. She has been drinking 15 beers a day. Last drink was last night. Since this morning she notes she has been having nausea vomiting and abdominal pain. Pain is all over the abdomen started after she had vomiting. This has progressively gotten worse, patient also feels anxious and therefore came to the emergency room for further evaluation. She noted that she is withdrawing from alcohol and has withdrawn from alcohol in the past. The patient notes that she has had multiple episodes of vomiting, some streaks of blood in that. She also has diarrhea with some streaks of blood in that. Denies any melanotic black stools or clots of blood in the stool. The patient overall feels weak, has some headache, tremors and generalized aches. She denies any fevers chest pain shortness of breath changes in vision or difficulty in swallowing, admits to having anxiety is depressed, denies any swelling of joints bleeding from any other orifice. In the emergency room patient was afebrile, heart rate 98 blood pressure 143/90, respirations 20 saturating 95% on room air. WC count is 10.9 hemoglobin 14 platelets 339, sodium 140 potassium 3.6 bicarbonate 21 creatinine 1 AST 130 ALT 70 UA is negative for any infection alcohol level is 0.107 Patient has received multiple rounds of Reglan and Zofran, IV pantoprazole without much relief her symptoms. She also received some Ativan. Patient is therefore being admitted to the hospital with a diagnosis of intractable nausea vomiting alcohol withdrawal 11/09 Patient seen and examined, still has some nausea but no vomiting. Clinically doing much better and feels better compared to yesterday. Still has some abdo wendy pain in the lower abdomen x-ray abdomen was negative. Labs are stable. Transfer the patient to [facility]. CIWA scores have been low 11/10 Pt seen examined, no acute issues, still has pain in the abdomen, rates severe, still has nausea. Pt had negative lipase on admission, repeat lipase is elevated, CT shows inflammation around head of pancreas, indicating pancreatitis vs peptic ulcer disease. GI consulted for EGD IV pain meds, clear liquid diet for now. Pertinent ROS: Denies headache, dizziness Denies chest pain, palpitations Denies cough or shortness of breath abdominal pain and nausea present. - Constitutional Vitals: Vital Signs Temp Pulse Resp BP Pulse Ox 98.0 F 87 20 142/96 96 11/10/18 11:00 11/10/18 11:00 11/10/18 11:00 11/10/18 11:00 11/10/18 11:00 Period Temp Pulse Resp BP Sys/Lomeli Pulse Ox Last 24 Hr 97.9 F-98.8 F 75-92 - 124-144/79-102 96-98 Intake and Output 11/10/18 11/10/18 11/10/18 05:59 13:59 21:59 Intake Total 1700 1000 Balance 1700 1000 Weight 143 lb Patient Weight 11/11/18 05:59 Weight 143 lb Intake & Output: Intake & Output 11/10/18 11/10/18 11/10/18 05:59 13:59 21:59 Intake Total 1700 1000 Balance 1700 1000 Weight 143 lb Intake: IV 1000 1000 Dextrose 5%-1/2Ns IV Solution 1 1000 1000 ,000 ml @ 150 mls/hr IV .Q6H40M [facility] Rx#:[id number] Oral 700 Other: # Voids 1 1 Exam: Constitutional; Afebrile, cooperative, alert, not in distress. Eyes- No icterus, , No periorbital swelling Ears- Ext ear normal, hearing normal to conversation. Neck- Midline trachea, supple Respiratory system: Air Entry equal on both sides, No crackles or wheezing, no rhonchi. CVS- Rate rhythm regular, S1,S2 heard, no gallop, no rub. Abdomen- Soft abdomen, bowel tones present, epigastric tenderness present. INVENTORY AND PRICING ASSOCIATE- AOOx3, moving all extremities, no gross focal deficit noted. Medical - PN: Obj Da - Labs CBC & Chem 7: 11/10/18 04:45 11/10/18 04:45 Labs: Abnormal Lab Results 11/10/18 11/10/18 11/10/18 04:45 04:45 04:45 RBC 3.69 L Hgb 11.4 L Hct 33.9 L Gran % Lymph % (Auto) Gran # Lymph # (Auto) Carbon Dioxide Anion Gap 7.0 L Glucose Calcium 8.0 L Phosphorus 2.0 L AST ALT Total Protein 5.3 L Globulin 2.1 L Amylase 163 H Lipase 406 H Urine Occult Blood Urine RBC Ur Squamous Epith Cells Urine Bacteria Ethyl Alcohol 11/09/18 11/09/18 11/08/18 08:15 08:15 19:11 RBC 3.70 L Hgb 11.4 L Hct 33.7 L Gran % Lymph % (Auto) Gran # Lymph # (Auto) Carbon Dioxide Anion Gap 7.0 L Glucose 120 H Calcium 7.5 L Phosphorus 2.4 L AST 66 H ALT 48 H Total Protein 5.5 L Globulin 1.9 L Amylase Lipase Urine Occult Blood Urine RBC Ur Squamous Epith Cells Urine Bacteria Ethyl Alcohol 0.107 H 11/08/18 11/08/18 11/08/18 19:11 19:11 19:10 RBC Hgb Hct Gran % 82.7 H Lymph % (Auto) 12.4 L Gran # 9.0 H Lymph # (Auto) 1.4 L Carbon Dioxide 21 L Anion Gap 21.0 H Glucose 119 H Calcium 8.5 L Phosphorus AST 130 H ALT 70 H Total Protein Globulin Amylase Lipase Urine Occult Blood >=1.0 A Urine RBC 4 H Ur Squamous Epith Cells 7 H Urine Bacteria Few A Ethyl Alcohol Meds: Medications Belladonna/Phenobarbital (Gi Cocktail) 1 dose PO Q4HP PRN PRN Reason: Dyspepsia Last Admin: 11/10/18 09:17 Dose: 1 dose Documented by: Clonidine HCl (Catapres) 0.1 mg PO Q4HP PRN PRN Reason: Alcohol Withdrawal Heparin Sodium (Porcine) (Heparin) 5,000 unit SQ Q12 [facility] Last Admin: 11/10/18 09:18 Dose: 5,000 unit Documented by: Hydromorphone HCl (Dilaudid) 0.5 - 1 mg IV Q2HP PRN PRN Reason: PAIN LEVEL > 6 Last Admin: 11/10/18 12:30 Dose: 0.5 mg Documented by: Dextrose/Sodium Chloride (Dextrose 5%-1/2ns Iv Solution) 1,000 mls @ 150 mls/hr IV .Q6H40M [facility] Last Admin: 11/10/18 12:52 Dose: 150 mls/hr Documented by: Ketorolac Tromethamine (Toradol) 15 mg IV Q6HP PRN PRN Reason: Pain Stop: 11/11/18 08:16 Last Admin: 11/10/18 02:57 Dose: 15 mg Documented by: Lorazepam (Ativan) 0 mg IV Q4HP PRN; Protocol PRN Reason: Alcohol Withdrawal Last Admin: 11/10/18 07:13 Dose: 1 mg Documented by: Metoclopramide HCl (Reglan) 10 mg IV ACHS [facility] Last Admin: 11/10/18 12:00 Dose: 10 mg Documented by: Multivit/Ca Carb/B Cmplx/FA/Prenat (Diatx) 1 tab PO DAILY [facility] Last Admin: 11/10/18 09:18 Dose: 1 tab Documented by: Naloxone HCl (Narcan) 0.1 mg IV Q2MIN PRN PRN Reason: Opiate Reversal Nicotine (Nicoderm) 14 mg TOPICAL DAILY@1000 [facility] Last Admin: 11/10/18 10:51 Dose: 14 mg Documented by: Ondansetron HCl (Zofran) 4 mg IV Q4HP PRN PRN Reason: Nausea And Vomiting Last Admin: 11/10/18 02:57 Dose: 4 mg Documented by: Oxycodone HCl (Roxicodone) 5 mg PO Q6HP PRN PRN Reason: pain not responding to nsaid Last Admin: 11/10/18 09:17 Dose: 5 mg Documented by: Pantoprazole Sodium (Protonix) 40 mg IV BIDAC [facility] Last Admin: 11/10/18 06:57 Dose: 40 mg Documented by: Potassium/Phosphorus/Sodium (Neutra Phos) 1 packet PO BID [facility] Last Admin: 11/10/18 09:18 Dose: 1 packet Documented by: Sodium Chloride (Saline Flush) 10 ml IV Q8 [facility] Last Admin: 11/10/18 14:09 Dose: Not Given Documented by: Thiamine HCl (Vitamin B1) 100 mg PO DAILY [facility] Last Admin: 11/10/18 09:18 Dose: 100 mg Documented by: Zolpidem Tartrate (Ambien) 10 mg PO HSP PRN PRN Reason: Insomnia Last Admin: 11/09/18 20:17 Dose: 10 mg Documented by: Medical - PN: A/P - Time Spent With Patient Total time spent is greater than 50% in coordination of care (as documented) at patient's floor/unit and/or counseling patient: - Narrative A/P Narrative: A/P Alcohol withdrawal Intractable nausea/vomiting anxiety abnormal lft Acute pancreatitis Possible Peptic ulcer disease Plan continue ciwa protocol. IV ativan prn per ciwa Zofran/reglan for nausea vomiting IV dilaudid, resumed given concern for pancreatitis . IV ppi to continue Replace lytes aggressively IV fluids DVT hep sq Diet clear liquid Full code. Medical - PN: Qual - Stroke Symptom Onset Unknown: No - VTE Deep Vein Thrombosis/Pulmonary Embolism Present on Admission: No
[2018-11-10] MEDS: ZOLPIDEM 5 MG TABLET PO PRN (20:52)
[2018-11-11] MEDS: HYDROmorphone 2 MG/ML VIAL IV PRN ×7 (01:06→21:46)
[2018-11-11] MEDS: LORazepam 2 MG/ML VIAL IV PRN (01:12)
[2018-11-11] MEDS: DEXTROSE 5%-1/2NS 1,000 ML IV SCH ×4 (02:36→19:20)
[2018-11-11 05:50] LABS: Basophils # (Auto) 0 K/mcL (0.0-0.3); Basophils % (Auto) 0.6 % (0.0-2.0); Eosinophils # (Auto) 0.2 K/mcL (0.0-0.7); Granulocytes % (Auto) 55.5 % (38.0-78.0); Lymphocytes # (Auto) 1.8 K/mcL (1.5-4.8); Lymphocytes % (Auto) 34.2 % (15.5-49.0); Mean Cell Volume 91.6 fL (80.0-100.0); Mean Corpuscular HGB Conc 33.9 g/dL (31.0-36.0); Monocytes # (Auto) 0.4 K/mcL (0.1-0.9); Monocytes % (Auto) 6.7 % (1.0-12.0); Platelet Count 194 K/mcL (140-440); RBC 3.58 M/mcL (4.00-5.20)
[2018-11-11] MEDS: 0.9 % SODIUM CHLORIDE 10 ML SYRINGE IV SCH ×4 (06:02→21:49)
[2018-11-11 06:29] LABS: ALT/SGPT 25 U/l (0-40); Albumin 3.3 gm/dL (3.2-5.2); Albumin/Globulin Ratio 1.6 (1.0-2.3); Alkaline Phosphatase 59 U/L (39-117); Bilirubin,Direct < 0.2 mg/dL (0.0-0.3); Blood Urea Nitrogen 4 mg/dl (6-20); Gamma Glutamyl Transpeptidase 21 U/L (5-36); Uric Acid 2.5 mg/dL (2.5-8.0)
[2018-11-11] MEDS: oxyCODONE HCL 5 MG TABLET PO PRN (07:10)
[2018-11-11] MEDS: NEUTRA PHOS 1 PACKET PO SCH ×2 (09:32→21:35)
[2018-11-11] MEDS: FOLIC ACID/VITAMIN B COMP W-C 1 TAB TABLET PO SCH (09:33)
[2018-11-11] MEDS: METOCLOPRAMIDE 10 MG/2 ML VIAL IV SCH ×4 (09:33→21:36)
[2018-11-11] MEDS: THIAMINE 100 MG TABLET PO SCH (09:33)
[2018-11-11] MEDS: PANTOPRAZOLE 40 MG VIAL IV SCH ×2 (09:35→16:59)
[2018-11-11] MEDS: HEPARIN 5,000 UNIT/ML VIAL SQ SCH ×2 (09:37→21:40)
[2018-11-11] MEDS: NICOTINE 14 MG PATCH TOPICAL SCH (09:55)
[2018-11-11] MEDS: ONDANSETRON 4 MG/2 ML VIAL IV PRN (13:02)
--- NOTE | 2018-11-11 13:08 | Internal Med Progress Note ---
Medical - PN: Subj Patient information: Note initiated : 11/11/18 at 1:06 pm Service Date, if different from initiated Date: [] Patient: Tameka Cody a 38 y/o F admitted on 11/09/18 for Alchohol withdrawl, nausea/vomiting. Chief Complaint: [] Interval history: Ms. Cody is a 38 year old F with history of alcohol use, who has been clean for the last 3 months. The patient notes she broke up with the boyfriend and s tarted drinking again a week ago. She has been drinking 15 beers a day. Last drink was last night. Since this morning she notes she has been having nausea vomiting and abdominal pain. Pain is all over the abdomen started after she had vomiting. This has progressively gotten worse, patient also feels anxious and therefore came to the emergency room for further evaluation. She noted that she is withdrawing from alcohol and has withdrawn from alcohol in the past. The patient notes that she has had multiple episodes of vomiting, some streaks of blood in that. She also has diarrhea with some streaks of blood in that. Denies any melanotic black stools or clots of blood in the stool. The patient overall feels weak, has some headache, tremors and generalized aches. She denies any fevers chest pain shortness of breath changes in vision or difficulty in swallowing, admits to having anxiety is depressed, denies any swelling of joints bleeding from any other orifice. In the emergency room patient was afebrile, heart rate 98 blood pressure 143/90, respirations 20 saturating 95% on room air. WC count is 10.9 hemoglobin 14 platelets 339, sodium 140 potassium 3.6 bicarbonate 21 creatinine 1 AST 130 ALT 70 UA is negative for any infection alcohol level is 0.107 Patient has received multiple rounds of Reglan and Zofran, IV pantoprazole without much relief her symptoms. She also received some Ativan. Patient is therefore being admitted to the hospital with a diagnosis of intractable nausea vomiting alcohol withdrawal 11/09 Patient seen and examined, still has some nausea but no vomiting. Clinically doing much better and feels better compared to yesterday. Still has some abdo wendy pain in the lower abdomen x-ray abdomen was negative. Labs are stable. Transfer the patient to [facility]. CIWA scores have been low 11/10 Pt seen examined, no acute issues, still has pain in the abdomen, rates severe, still has nausea. Pt had negative lipase on admission, repeat lipase is elevated, CT shows inflammation around head of pancreas, indicating pancreatitis vs peptic ulcer disease. GI consulted for EGD IV pain meds, clear liquid diet for now. 11/11 Patient seen and examined, still has abdominal pain and nausea. Her lipase level is trending down. She will be n.p.o. today for endoscopy this evening. Continue pain medications No new complaints or symptoms She is passing gas Pertinent ROS: Denies headache, dizziness Denies chest pain, palpitations Denies cough or shortness of breath Abdominal pain and nausea present - Constitutional Vitals: Vital Signs Temp Pulse Resp BP Pulse Ox 97.4 F 79 20 134/92 98 11/11/18 12:00 11/11/18 12:00 11/11/18 12:00 11/11/18 12:00 11/11/18 12:00 Period Temp Pulse Resp BP Sys/Lomeli Pulse Ox Last 24 Hr 97.1 F-99.1 F 79-93 16-20 122-144/78-100 96-99 Intake and Output 11/10/18 11/11/18 11/11/18 21:59 05:59 13:59 Intake Total 2255 2030 1240 Balance 2255 2030 1240 Weight 143 lb Intake & Output: Intake & Output 11/10/18 11/11/18 11/11/18 21:59 05:59 13:59 Intake Total 2255 2030 1240 Balance 2255 2030 1240 Weight 143 lb Intake: IV 985 1000 1000 Dextrose 5%-1/2Ns IV Solution 1 985 1000 1000 ,000 ml @ 150 mls/hr IV .Q6H40M [facility] Rx#:[id number] Oral 1270 1030 240 Other: Meal Dinner Percent of Meal Consumed 100% Feeding Ability Independent # Voids 1 1 Exam: Constitutional; Afebrile, cooperative, alert, not in distress. Eyes- No icterus, , No periorbital swelling Ears- Ext ear normal, hearing normal to conversation. Neck- Midline trachea, supple Respiratory system: Air Entry equal on both sides, No crackles or wheezing, no rhonchi. CVS- Rate rhythm regular, S1,S2 heard, no gallop, no rub. Abdomen-epigastric tenderness present,, no organomegaly, no tenderness, ACCOUNT DIRECTOR- AOOx3, moving all extremities, no gross focal deficit noted. Medical - PN: Obj Da - Labs CBC & Chem 7: 11/11/18 04:00 11/11/18 04:00 Labs: Abnormal Lab Results 11/11/18 11/11/18 11/11/18 04:00 04:00 04:00 RBC 3.58 L Hgb 11.1 L Hct 32.8 L Gran % Lymph % (Auto) Gran # Lymph # (Auto) Carbon Dioxide Anion Gap BUN 4 L Glucose 116 H Calcium 7.8 L Phosphorus AST ALT Total Protein 5.4 L Globulin 2.1 L Triglycerides 158 H Amylase Lipase 287 H Urine Occult Blood Urine RBC Ur Squamous Epith Cells Urine Bacteria Ethyl Alcohol 11/10/18 11/10/18 11/10/18 04:45 04:45 04:45 RBC 3.69 L Hgb 11.4 L Hct 33.9 L Gran % Lymph % (Auto) Gran # Lymph # (Auto) Carbon Dioxide Anion Gap 7.0 L BUN Glucose Calcium 8.0 L Phosphorus 2.0 L AST ALT Total Protein 5.3 L Globulin 2.1 L Triglycerides Amylase 163 H Lipase 406 H Urine Occult Blood Urine RBC Ur Squamous Epith Cells Urine Bacteria Ethyl Alcohol 11/09/18 11/09/18 11/08/18 08:15 08:15 19:11 RBC 3.70 L Hgb 11.4 L Hct 33.7 L Gran % Lymph % (Auto) Gran # Lymph # (Auto) Carbon Dioxide Anion Gap 7.0 L BUN Glucose 120 H Calcium 7.5 L Phosphorus 2.4 L AST 66 H ALT 48 H Total Protein 5.5 L Globulin 1.9 L Triglycerides Amylase Lipase Urine Occult Blood Urine RBC Ur Squamous Epith Cells Urine Bacteria Ethyl Alcohol 0.107 H 11/08/18 11/08/18 11/08/18 19:11 19:11 19:10 RBC Hgb Hct Gran % 82.7 H Lymph % (Auto) 12.4 L Gran # 9.0 H Lymph # (Auto) 1.4 L Carbon Dioxide 21 L Anion Gap 21.0 H BUN Glucose 119 H Calcium 8.5 L Phosphorus AST 130 H ALT 70 H Total Protein Globulin Triglycerides Amylase Lipase Urine Occult Blood >=1.0 A Urine RBC 4 H Ur Squamous Epith Cells 7 H Urine Bacteria Few A Ethyl Alcohol Meds: Medications Belladonna/Phenobarbital (Gi Cocktail) 1 dose PO Q4HP PRN PRN Reason: Dyspepsia Last Admin: 11/10/18 09:17 Dose: 1 dose Documented by: Clonidine HCl (Catapres) 0.1 mg PO Q4HP PRN PRN Reason: Alcohol Withdrawal Heparin Sodium (Porcine) (Heparin) 5,000 unit SQ Q12 [facility] Last Admin: 11/11/18 09:37 Dose: 5,000 unit Documented by: Hydromorphone HCl (Dilaudid) 0.5 - 1 mg IV Q2HP PRN PRN Reason: PAIN LEVEL > 6 Last Admin: 11/11/18 12:38 Dose: 0.5 mg Documented by: Dextrose/Sodium Chloride (Dextrose 5%-1/2ns Iv Solution) 1,000 mls @ 150 mls/hr IV .Q6H40M [facility] Last Admin: 11/11/18 10:10 Dose: 150 mls/hr Documented by: Lorazepam (Ativan) 0 mg IV Q4HP PRN; Protocol PRN Reason: Alcohol Withdrawal Last Admin: 11/11/18 01:12 Dose: 1 mg Documented by: Metoclopramide HCl (Reglan) 10 mg IV ACHS [facility] Last Admin: 11/11/18 09:36 Dose: 10 mg Documented by: Multivit/Ca Carb/B Cmplx/FA/Prenat (Diatx) 1 tab PO DAILY [facility] Last Admin: 11/11/18 09:33 Dose: 1 tab Documented by: Naloxone HCl (Narcan) 0.1 mg IV Q2MIN PRN PRN Reason: Opiate Reversal Nicotine (Nicoderm) 14 mg TOPICAL DAILY@1000 [facility] Last Admin: 11/11/18 09:55 Dose: 14 mg Documented by: Ondansetron HCl (Zofran) 4 mg IV Q4HP PRN PRN Reason: Nausea And Vomiting Last Admin: 11/11/18 13:02 Dose: 4 mg Documented by: Oxycodone HCl (Roxicodone) 5 mg PO Q6HP PRN PRN Reason: pain not responding to nsaid Last Admin: 11/11/18 07:10 Dose: 5 mg Documented by: Pantoprazole Sodium (Protonix) 40 mg IV BIDAC [facility] Last Admin: 11/11/18 09:35 Dose: 40 mg Documented by: Potassium/Phosphorus/Sodium (Neutra Phos) 1 packet PO BID [facility] Last Admin: 11/11/18 09:32 Dose: 1 packet Documented by: Sodium Chloride (Saline Flush) 10 ml IV Q8 [facility] Last Admin: 11/11/18 06:02 Dose: Not Given Documented by: Thiamine HCl (Vitamin B1) 100 mg PO DAILY [facility] Last Admin: 11/11/18 09:33 Dose: 100 mg Documented by: Zolpidem Tartrate (Ambien) 10 mg PO HSP PRN PRN Reason: Insomnia Last Admin: 11/10/18 20:52 Dose: 10 mg Documented by: Medical - PN: A/P - Time Spent With Patient Total time spent is greater than 50% in coordination of care (as documented) at patient's floor/unit and/or counseling patient: - Narrative A/P Narrative: A/P Alcohol withdrawal Intractable nausea/vomiting anxiety abnormal lft Acute pancreatitis Possible Peptic ulcer disease Plan continue ciwa protocol. IV ativan prn per ciwa Zofran/reglan for nausea vomiting IV dilaudid, resumed given concern for pancreatitis . IV ppi to continue Replace lytes aggressively IV fluids Gastroenterology consulted yesterday, plan for endoscopy this evening DVT hep sq Diet clear liquid Full code. Medical - PN: Qual - Stroke Symptom Onset Unknown: No - VTE Deep Vein Thrombosis/Pulmonary Embolism Present on Admission: No
[2018-11-11] MEDS ORDERED: MIDAZOLAM 2 MG/2 ML VIAL IV SCH (16:30)
[2018-11-11] MEDS ORDERED: PROPOFOL 200 MG/20 ML VIAL IV SCH (16:30)
[2018-11-11] MEDS ORDERED: PROPOFOL 20 ML IV ONE (16:35)
[2018-11-11] MEDS ORDERED: MIDAZOLAM 2 MG/2 ML VIAL ONE (16:36)
[2018-11-11] MEDS ORDERED: ACETAMINOPHEN 325 MG TABLET PO PRN (16:51)
[2018-11-11] MEDS: ZOLPIDEM 5 MG TABLET PO PRN (21:35)
[2018-11-12] MEDS: oxyCODONE HCL 5 MG TABLET PO PRN ×3 (01:19→21:23)
[2018-11-12] MEDS: HYDROmorphone 2 MG/ML VIAL IV PRN ×8 (01:19→23:11)
[2018-11-12] MEDS: DEXTROSE 5%-1/2NS 1,000 ML IV SCH ×3 (01:46→16:36)
[2018-11-12] MEDS: ONDANSETRON 4 MG/2 ML VIAL IV PRN ×2 (04:06→12:29)
[2018-11-12 05:12] LABS: Basophils # (Auto) 0 K/mcL (0.0-0.3); Basophils % (Auto) 0.4 % (0.0-2.0); Eosinophils # (Auto) 0.2 K/mcL (0.0-0.7); Eosinophils % (Auto) 2.8 % (0.0-7.0); Granulocytes % (Auto) 65.3 % (38.0-78.0); Lymphocytes # (Auto) 1.3 K/mcL (1.5-4.8); Lymphocytes % (Auto) 24.1 % (15.5-49.0); Mean Corpuscular HGB Conc 34.2 g/dL (31.0-36.0); Monocytes # (Auto) 0.4 K/mcL (0.1-0.9); Monocytes % (Auto) 7.4 % (1.0-12.0); Platelet Count 208 K/mcL (140-440); RBC 3.87 M/mcL (4.00-5.20); Red Cell Distribution Width 13.7 % (11.5-14.5)
[2018-11-12 05:34] LABS: ALT/SGPT 21 U/l (0-40); Albumin 3.6 gm/dL (3.2-5.2); Albumin/Globulin Ratio 1.4 (1.0-2.3); Alkaline Phosphatase 54 U/L (39-117); Bilirubin,Direct < 0.2 mg/dL (0.0-0.3); Blood Urea Nitrogen 2 mg/dl (6-20); Gamma Glutamyl Transpeptidase 22 U/L (5-36); Uric Acid 2.3 mg/dL (2.5-8.0)
[2018-11-12] MEDS: METOCLOPRAMIDE 10 MG/2 ML VIAL IV SCH ×4 (07:00→21:23)
[2018-11-12] MEDS: 0.9 % SODIUM CHLORIDE 10 ML SYRINGE IV SCH ×3 (07:04→21:24)
[2018-11-12] MEDS: FOLIC ACID/VITAMIN B COMP W-C 1 TAB TABLET PO SCH (07:21)
[2018-11-12] MEDS: NEUTRA PHOS 1 PACKET PO SCH ×2 (07:22→21:23)
[2018-11-12] MEDS: THIAMINE 100 MG TABLET PO SCH (07:22)
[2018-11-12] MEDS: LORazepam 2 MG/ML VIAL IV PRN ×2 (07:59→18:03)
--- NOTE | 2018-11-12 08:59 | Operative Note ---
DATE OF OPERATION: 11/11/2018 PREPROCEDURE DIAGNOSIS: Pancreatitis, ? ulcer irritating pancreas. POSTPROCEDURE DIAGNOSES: EGitis, history of pancreatitis, probably alcohol-induced; pancreatitis is probably irritating duodenum rather than the other way around. PROCEDURE: Esophagogastroduodenoscopy with biopsy for histopathology and CLOtest. INSTRUMENT USED: Olympus KRISSY [id number]. SPECIMENS OBTAINED: Biopsies from antrum for histopathology and CLOtest. CLOtest RESULTS: Negative INDICATIONS: The patient is a 38-year-old lady whose primary care provider is Yue Cowart NP. The patient was admitted to [facility] under the care of Dr. Durant. She had complained of abdominal pain, nausea, and I believe some reflux. She does use a fair amount of alcohol, perhaps 15 beers a day. She did have some elevation of lipase and amylase. Lipase was 406. Amylase was 163. On the her lipase was normal at 37. She did have a CAT scan that showed some inflammation at the head and uncinate process of the pancreas and adjacent second portion of the duodenum. Radiologist felt this was probably secondary to pancreatitis with secondary inflammation of the duodenum and less likely peptic ulcer disease with secondary inflammation of the pancreas. Because of her persistent symptoms, endoscopy is indicated to evaluate for possible ulcers. The patient states she does use a lot of nonsteroidal anti-inflammatory drugs. Endoscopy is indicated. INFORMED CONSENT: Time of informed consent 18:31. The procedure was reviewed with the patient. The patient had no further questions and accepts the risks and benefits thereof. One of the risks that were discussed included . Additional risks that were also discussed included bleeding, reaction to medication, possible perforation and possible need for surgery. IV MEDICATIONS USED: Versed 2 mg and propofol 130 mg. FINDINGS: ESOPHAGUS: Proximal, mid and distal esophagus normal. EG JUNCTION: There was a little erythema and edema about 40 cm where the EG junction generally was; sometimes there was a hiatal hernia to 42 or 43 cm, other times no significant hiatal hernia. STOMACH: Cardia, fundus, body and antrum normal. Biopsies were taken from the antrum for histopathology and rapid urease testing -- CLOtest. PYLORUS: Normal. DUODENUM: This appeared normal. No ulcers were seen. RECOMMENDATIONS: Continue treatment for pancreatitis. The patient is on Protonix. Follow antireflux measures. If the pain persists and does not seem to improve and his amylase and lipase improved, one may consider MRI-MRCP. Currently, I believe endoscopic findings support what the radiologist stated, that the inflammation is probably from pancreatitis and inflaming the duodenum somewhat. No ulcers were seen. There was only minimal to mild inflammation at the EG junction which may or may not suggest reflux. It would be best if the patient could avoid alcohol. SEDATION TIME: 18:35 to 18:55. Please refer to the preprocedure nurse's notes, procedure flowsheet, procedure record, and post-procedure assessment for details of the sedation including the pre-, intra-, and post-service work. CRD:kh Job ID: [id number] Doc ID: [id number] James [facility]ADO [facility]PITALShirley
[2018-11-12] MEDS: PANTOPRAZOLE 40 MG VIAL IV SCH ×2 (09:55→17:11)
[2018-11-12] MEDS: HEPARIN 5,000 UNIT/ML VIAL SQ SCH ×2 (09:55→21:22)
[2018-11-12] MEDS: NICOTINE 14 MG PATCH TOPICAL SCH (09:55)
[2018-11-12] MEDS: fentaNYL 25 MCG PATCH TOPICAL SCH ×2 (10:31→12:27)
--- NOTE | 2018-11-12 11:25 | Internal Med Progress Note ---
Medical - PN: Subj Patient information: Note initiated : 11/12/18 at 11:22 am Service Date, if different from initiated Date: [] Patient: Tameka Cody a 38 y/o F admitted on 11/09/18 for Alchohol withdrawl, nausea/vomiting. Chief Complaint: [] Interval history: Ms. Cody is a 38 year old F with history of alcohol use, who has been clean for the last 3 months. The patient notes she broke up with the boyfriend and started drinking again a week ago. She has been drinking 15 beers a day. Last drink was last night. Since this morning she notes she has been having nausea vomiting and abdominal pain. Pain is all over the abdomen started after she had vomiting. This has progressively gotten worse, patient also feels anxious and therefore came to the emergency room for further evaluation. She noted that she is withdrawing from alcohol and has withdrawn from alcohol in the past. The patient notes that she has had multiple episodes of vomiting, some streaks of blood in that. She also has diarrhea with some streaks of blood in that. Denies any melanotic black stools or clots of blood in the stool. The patient overall feels weak, has some headache, tremors and generalized aches. She denies any fevers chest pain shortness of breath changes in vision or difficulty in swallowing, admits to having anxiety is depressed, denies any swelling of joints bleeding from any other orifice. In the emergency room patient was afebrile, heart rate 98 blood pressure 143/90, respirations 20 saturating 95% on room air. WC count is 10.9 hemoglobin 14 platelets 339, sodium 140 potassium 3.6 bicarbonate 21 creatinine 1 AST 130 ALT 70 UA is negative for any infection alcohol level is 0.107 Patient has received multiple rounds of Reglan and Zofran, IV pantoprazole without much relief her symptoms. She also received some Ativan. Patient is therefore being admitted to the hospital with a diagnosis of intractable nausea vomiting alcohol withdrawal 11/09 Patient seen and examined, still has some nausea but no vomiting. Clinically doing much better and feels better compared to yesterday. Still has some abd ominal pain in the lower abdomen x-ray abdomen was negative. Labs are stable. Transfer the patient to [facility]. CIWA scores have been low 11/10 Pt seen examined, no acute issues, still has pain in the abdomen, rates severe, still has nausea. Pt had negative lipase on admission, repeat lipase is elevated, CT shows inflammation around head of pancreas, indicating pancreatitis vs peptic ulcer disease. GI consulted for EGD IV pain meds, clear liquid diet for now. 11/11 Patient seen and examined, still has abdominal pain and nausea. Her lipase level is trending down. She will be n.p.o. today for endoscopy this evening. Continue pain medications No new complaints or symptoms She is passing gas 11/12 Pt seen examined, still has nausea, unable to tolerate po much abdominal pain today is reported as worsen than yesterday her lipase is trending down, wbc is normal, there is clear discordance between the lab parameters for pancreatitis, and patients clinical report. will proceed with MRI/MRCP today for further evaluation. Pertinent ROS: Denies headache, dizziness Denies chest pain, palpitations Denies cough or shortness of breath continues to have abdominal pain, nausea - Constitutional Vitals: Vital Signs Temp Pulse Resp BP Pulse Ox 98.1 F 77 18 160/103 98 11/12/18 07:44 11/12/18 08:00 11/12/18 07:44 11/12/18 07:44 11/12/18 07:44 Period Temp Pulse Resp BP Sys/Lomeli Pulse Ox Last 24 Hr 97.4 F-98.6 F 66-89 16-20 116-160/79-110 96-100 Intake and Output 11/11/18 11/12/18 11/12/18 21:59 05:59 13:59 Intake Total 7717 221 7045 Output Total 50 Balance 1000 965 950 Weight 145 lb Intake & Output: Intake & Output 11/11/18 11/12/18 11/12/18 21:59 05:59 13:59 Intake Total 4852 269 1612 Output Total 50 Balance 1000 965 950 Weight 145 lb Intake: IV 4725 381 1720 Dextrose 5%-1/2Ns IV Solution 1 8003 008 6064 ,000 ml @ 150 mls/hr IV .Q6H40M [facility] Rx#:[id number] Oral 0 Output: Emesis 50 Other: # Voids 1 1 Exam: Constitutional; Afebrile, cooperative, alert, not in distress. Eyes- No icterus, , No periorbital swelling Ears- Ext ear normal, hearing normal to conversation. Neck- Midline trachea, supple Respiratory system: Air Entry equal on both sides, No crackles or wheezing, no rhonchi. CVS- Rate rhythm regular, S1,S2 heard, no gallop, no rub. Abdomen- epigastric tenderness present, INDUSTRIAL ORGANIZATIONAL PSYCHOLOGIST- AOOx3, moving all extremities, no gross focal deficit noted. Medical - PN: Obj Da - Labs CBC & Chem 7: 11/12/18 03:40 11/12/18 03:40 Labs: Abnormal Lab Results 11/12/18 11/12/18 11/12/18 03:40 03:40 03:40 RBC 3.87 L Hgb Hct 35.2 L Lymph # (Auto) 1.3 L Anion Gap BUN 2 L Glucose 123 H Uric Acid 2.3 L Calcium Phosphorus Total Protein Globulin Triglycerides Amylase Lipase 95 H 11/11/18 11/11/18 11/11/18 04:00 04:00 04:00 RBC 3.58 L Hgb 11.1 L Hct 32.8 L Lymph # (Auto) Anion Gap BUN 4 L Glucose 116 H Uric Acid Calcium 7.8 L Phosphorus Total Protein 5.4 L Globulin 2.1 L Triglycerides 158 H Amylase Lipase 287 H 11/10/18 11/10/18 11/10/18 04:45 04:45 04:45 RBC 3.69 L Hgb 11.4 L Hct 33.9 L Lymph # (Auto) Anion Gap 7.0 L BUN Glucose Uric Acid Calcium 8.0 L Phosphorus 2.0 L Total Protein 5.3 L Globulin 2.1 L Triglycerides Amylase 163 H Lipase 406 H Meds: Medications Acetaminophen (Tylenol) 650 mg PO Q6HP PRN PRN Reason: PAIN/FEVER > 101 Belladonna/Phenobarbital (Gi Cocktail) 1 dose PO Q4HP PRN PRN Reason: Dyspepsia Last Admin: 11/10/18 09:17 Dose: 1 dose Documented by: Clonidine HCl (Catapres) 0.1 mg PO Q4HP PRN PRN Reason: Alcohol Withdrawal Fentanyl (Duragesic) 25 mcg TOPICAL Q72H [facility] Last Admin: 11/12/18 10:31 Dose: 25 mcg Documented by: Heparin Sodium (Porcine) (Heparin) 5,000 unit SQ Q12 [facility] Last Admin: 11/12/18 09:55 Dose: 5,000 unit Documented by: Hydromorphone HCl (Dilaudid) 0.5 - 1 mg IV Q2HP PRN PRN Reason: PAIN LEVEL > 6 Last Admin: 11/12/18 09:54 Dose: 0.5 mg Documented by: Dextrose/Sodium Chloride (Dextrose 5%-1/2ns Iv Solution) 1,000 mls @ 150 mls/hr IV .Q6H40M [facility] Last Admin: 11/12/18 09:55 Dose: 150 mls/hr Documented by: Lorazepam (Ativan) 1 mg IV Q4HP PRN PRN Reason: ANXIETY/SEDATION Metoclopramide HCl (Reglan) 10 mg IV ACHS [facility] Last Admin: 11/12/18 10:33 Dose: 10 mg Documented by: Multivit/Ca Carb/B Cmplx/FA/Prenat (Diatx) 1 tab PO DAILY [facility] Last Admin: 11/12/18 07:21 Dose: Not Given Documented by: Naloxone HCl (Narcan) 0.1 mg IV Q2MIN PRN PRN Reason: Opiate Reversal Nicotine (Nicoderm) 14 mg TOPICAL DAILY@1000 [facility] Last Admin: 11/12/18 09:55 Dose: 14 mg Documented by: Ondansetron HCl (Zofran) 4 mg IV Q4HP PRN PRN Reason: Nausea And Vomiting Last Admin: 11/12/18 04:06 Dose: 4 mg Documented by: Oxycodone HCl (Roxicodone) 5 mg PO Q6HP PRN PRN Reason: pain not responding to nsaid Last Admin: 11/12/18 07:01 Dose: 5 mg Documented by: Pantoprazole Sodium (Protonix) 40 mg IV BIDAC [facility] Last Admin: 11/12/18 09:55 Dose: 40 mg Documented by: Potassium/Phosphorus/Sodium (Neutra Phos) 1 packet PO BID [facility] Last Admin: 11/12/18 07:22 Dose: Not Given Documented by: Sodium Chloride (Saline Flush) 10 ml IV Q8 [facility] Last Admin: 11/12/18 07:04 Dose: Not Given Documented by: Thiamine HCl (Vitamin B1) 100 mg PO DAILY [facility] Last Admin: 11/12/18 07:22 Dose: Not Given Documented by: Zolpidem Tartrate (Ambien) 10 mg PO HSP PRN PRN Reason: Insomnia Last Admin: 11/11/18 21:35 Dose: 10 mg Documented by: Medical - PN: A/P - Time Spent With Patient Total time spent is greater than 50% in coordination of care (as documented) at patient's floor/unit and/or counseling patient: - Narrative A/P Narrative: A/P Alcohol withdrawal, resolving Intractable nausea/vomiting anxiety abnormal lft Acute pancreatitis, alcoholic Plan d/c ciwa protoc, pt no longer withdrwaing IV ativan q4hr prn anxiety MRCP /MRI abdomen for further evaluation appreciate GI input, EGD negative Zofran/reglan for nausea vomiting IV dilaudid, resumed given concern for pancreatitis, Add fentanyl patch 25mcg for additional baseline pain control, IV ppi to continue Replace lytes aggressively IV fluids DVT hep sq Diet clear liquid Full code. Medical - PN: Qual - Stroke Symptom Onset Unknown: No - VTE Deep Vein Thrombosis/Pulmonary Embolism Present on Admission: No
[2018-11-12] MEDS ORDERED: GADOBENATE DIMEGLUMINE 15 ML/VIAL IV ONE (11:37)
--- NOTE | 2018-11-12 13:00 | Magnetic Resonance Report ---
History: Pancreatitis with elevated serum amylase and lipase levels TECHNIQUE: Multiplanar imaging was performed using multiple pulse sequences before and after MultiHance contrast which was injected intravenously. FINDINGS: The pancreas is normal in size and contour. There is no evidence of a mass, inflammation or pseudocyst. The pancreatic duct is less than 2 mm in width. The second portion of the duodenum is relatively plump but is not inflamed. The edema and inflammation seen around the head and uncinate process of the pancreas and the adjacent second portion the duodenum has resolved since the recent upper abdomen CT done on 11/10/18. There is no ascites or adenopathy. The liver and spleen are normal in size and homogeneous. The gallbladder and bile ducts are normal. No abnormality seen within the adrenals or kidneys. The postcontrast view show no abnormal enhancement. IMPRESSION: Normal exam with resolution of previously seen pancreatitis/duodenitis Interpreted and Authenticated by: Jimmie Hamlin 11/12/18
--- NOTE | 2018-11-12 14:06 | Internal Med Progress Note ---
Medical - PN: Subj Patient information: Note initiated : 11/12/18 at 2:00 pm Service Date, if different from initiated Date: [] Patient: Tameka Cody a 38 y/o F admitted on 11/09/18 for Alchohol withdrawl, nausea/vomiting. Chief Complaint: [] Interval history: Ms. Cody is a 38 year old F with history of alcohol use, who has been clean for the last 3 months. The patient notes she broke up with the boyfriend and started drinking again a week ago. She has been drinking 15 beers a day. Last drink was last night. Since this morning she notes she has been having nausea vomiting and abdominal pain. Pain is all over the abdomen started after she had vomiting. This has progressively gotten worse, patient also feels anxious and therefore came to the emergency room for further evaluation. She noted that she is withdrawing from alcohol and has withdrawn from alcohol in the past. The patient notes that she has had multiple episodes of vomiting, some streaks of blood in that. She also has diarrhea with some streaks of blood in that. Denies any melanotic black stools or clots of blood in the stool. The patient overall feels weak, has some headache, tremors and generalized aches. She denies any fevers chest pain shortness of breath changes in vision or difficulty in swallowing, admits to having anxiety is depressed, denies any swelling of joints bleeding from any other orifice. In the emergency room patient was afebrile, heart rate 98 blood pressure 143/90, respirations 20 saturating 95% on room air. WC count is 10.9 hemoglobin 14 platelets 339, sodium 140 potassium 3.6 bicarbonate 21 creatinine 1 AST 130 ALT 70 UA is negative for any infection alcohol level is 0.107 Patient has received multiple rounds of Reglan and Zofran, IV pantoprazole without much relief her symptoms. She also received some Ativan. Patient is therefore being admitted to the hospital with a diagnosis of intractable nausea vomiting alcohol withdrawal 11/09 Patient seen and examined, still has some nausea but no vomiting. Clinically doing much better and feels better compared to yesterday. Still has some abd ominal pain in the lower abdomen x-ray abdomen was negative. Labs are stable. Transfer the patient to [facility]. CIWA scores have been low 11/10 Pt seen examined, no acute issues, still has pain in the abdomen, rates severe, still has nausea. Pt had negative lipase on admission, repeat lipase is elevated, CT shows inflammation around head of pancreas, indicating pancreatitis vs peptic ulcer disease. GI consulted for EGD IV pain meds, clear liquid diet for now. 11/11 Patient seen and examined, still has abdominal pain and nausea. Her lipase level is trending down. She will be n.p.o. today for endoscopy this evening. Continue pain medications No new complaints or symptoms She is passing gas 11/12 Pt seen examined, still has nausea, unable to tolerate po much abdominal pain today is reported as worsen than yesterday her lipase is trending down, wbc is normal, there is clear discordance between the lab parameters for pancreatitis, and patients clinical report. will proceed with MRI/MRCP today for further evaluation. 11/13 - Constitutional Vitals: Vital Signs Temp Pulse Resp BP Pulse Ox 98.3 F 79 18 153/98 97 11/12/18 11:00 11/12/18 11:00 11/12/18 11:00 11/12/18 11:00 11/12/18 11:00 Period Temp Pulse Resp BP Sys/Lomeli Pulse Ox Last 24 Hr 97.7 F-98.6 F 66-89 16-18 116-160/79-110 96-100 Intake and Output 11/12/18 11/12/18 11/12/18 05:59 13:59 21:59 Intake Total 965 1000 Output Total 50 Balance 965 950 Intake & Output: Intake & Output 11/12/18 11/12/18 11/12/18 05:59 13:59 21:59 Intake Total 965 1000 Output Total 50 Balance 965 950 Intake: IV 965 1000 Dextrose 5%-1/2Ns IV Solution 1 965 1000 ,000 ml @ 150 mls/hr IV .[id number] [facility] Rx#:[id number] Oral 0 Output: Emesis 50 Other: # Voids 1 Exam: General: Alert, Awake, No acute Distress Eyes/N/T: EOMI, Head/Neck: neck supple, CV: RRR, No murmurs, Pulm: Clear b/l, no wheezing/rhonchi/rales Abd: soft, TTP epigastrum, +BS x4 Ext: no clubbing/cyanosis/edema Neuro: Alert, no focal deficits, moves all extremities, Skin: warm/dry Medical - PN: Obj Da - Labs CBC & Chem 7: 11/12/18 03:40 11/12/18 03:40 Labs: Abnormal Lab Results 11/12/18 11/12/18 11/12/18 03:40 03:40 03:40 RBC 3.87 L Hgb Hct 35.2 L Lymph # (Auto) 1.3 L Anion Gap BUN 2 L Glucose 123 H Uric Acid 2.3 L Calcium Phosphorus Total Protein Globulin Triglycerides Amylase Lipase 95 H 11/11/18 11/11/18 11/11/18 04:00 04:00 04:00 RBC 3.58 L Hgb 11.1 L Hct 32.8 L Lymph # (Auto) Anion Gap BUN 4 L Glucose 116 H Uric Acid Calcium 7.8 L Phosphorus Total Protein 5.4 L Globulin 2.1 L Triglycerides 158 H Amylase Lipase 287 H 11/10/18 11/10/18 11/10/18 04:45 04:45 04:45 RBC 3.69 L Hgb 11.4 L Hct 33.9 L Lymph # (Auto) Anion Gap 7.0 L BUN Glucose Uric Acid Calcium 8.0 L Phosphorus 2.0 L Total Protein 5.3 L Globulin 2.1 L Triglycerides Amylase 163 H Lipase 406 H Meds: Medications Acetaminophen (Tylenol) 650 mg PO Q6HP PRN PRN Reason: PAIN/FEVER > 101 Belladonna/Phenobarbital (Gi Cocktail) 1 dose PO Q4HP PRN PRN Reason: Dyspepsia Last Admin: 11/10/18 09:17 Dose: 1 dose Documented by: Clonidine HCl (Catapres) 0.1 mg PO Q4HP PRN PRN Reason: Alcohol Withdrawal Fentanyl (Duragesic) 25 mcg TOPICAL Q72H [facility] Last Admin: 11/12/18 12:27 Dose: 25 mcg Documented by: Heparin Sodium (Porcine) (Heparin) 5,000 unit SQ Q12 [facility] Last Admin: 11/12/18 09:55 Dose: 5,000 unit Documented by: Hydromorphone HCl (Dilaudid) 0.5 - 1 mg IV Q2HP PRN PRN Reason: PAIN LEVEL > 6 Last Admin: 11/12/18 12:45 Dose: 0.5 mg Documented by: Dextrose/Sodium Chloride (Dextrose 5%-1/2ns Iv Solution) 1,000 mls @ 150 mls/hr IV .Q6H40M [facility] Last Admin: 11/12/18 09:55 Dose: 150 mls/hr Documented by: Lorazepam (Ativan) 1 mg IV Q4HP PRN PRN Reason: ANXIETY/SEDATION Metoclopramide HCl (Reglan) 10 mg IV ACHS [facility] Last Admin: 11/12/18 10:33 Dose: 10 mg Documented by: Multivit/Ca Carb/B Cmplx/FA/Prenat (Diatx) 1 tab PO DAILY [facility] Last Admin: 11/12/18 07:21 Dose: Not Given Documented by: Naloxone HCl (Narcan) 0.1 mg IV Q2MIN PRN PRN Reason: Opiate Reversal Nicotine (Nicoderm) 14 mg TOPICAL DAILY@1000 [facility] Last Admin: 11/12/18 09:55 Dose: 14 mg Documented by: Ondansetron HCl (Zofran) 4 mg IV Q4HP PRN PRN Reason: Nausea And Vomiting Last Admin: 11/12/18 12:29 Dose: 4 mg Documented by: Oxycodone HCl (Roxicodone) 5 mg PO Q6HP PRN PRN Reason: pain not responding to nsaid Last Admin: 11/12/18 07:01 Dose: 5 mg Documented by: Pantoprazole Sodium (Protonix) 40 mg IV BIDAC [facility] Last Admin: 11/12/18 09:55 Dose: 40 mg Documented by: Potassium/Phosphorus/Sodium (Neutra Phos) 1 packet PO BID [facility] Last Admin: 11/12/18 07:22 Dose: Not Given Documented by: Sodium Chloride (Saline Flush) 10 ml IV Q8 [facility] Last Admin: 11/12/18 12:30 Dose: 10 ml Documented by: Thiamine HCl (Vitamin B1) 100 mg PO DAILY [facility] Last Admin: 11/12/18 07:22 Dose: Not Given Documented by: Zolpidem Tartrate (Ambien) 10 mg PO HSP PRN PRN Reason: Insomnia Last Admin: 11/11/18 21:35 Dose: 10 mg Documented by: Medical - PN: A/P - Time Spent With Patient Total time spent is greater than 50% in coordination of care (as documented) at patient's floor/unit and/or counseling patient: - Narrative A/P Narrative: A: *Alcohol withdrawal: resolving *Intractable nausea/vomiting: *anxiety *abnormal lft *Acute pancreatitis, alcoholic: -MRCP unremarkable, improvement in pancreatitis/duodenitits Plan -d/c ciwa protoc, pt no longer withdrwaing -IV ativan q4hr prn anxiety -appreciate GI input, EGD negative -Zofran/reglan for nausea vomiting -IV dilaudid, resumed given concern for pancreatitis, Add fentanyl patch 25mcg for additional baseline pain control, -IV ppi to continue -Replace lytes aggressively -IV fluids, clear diet -ppx: hep sq Full code. Medical - PN: Qual - Stroke Symptom Onset Unknown: No - VTE Deep Vein Thrombosis/Pulmonary Embolism Present on Admission: No
[2018-11-12] MEDS: ZOLPIDEM 5 MG TABLET PO PRN (21:23)
[2018-11-13] MEDS: HYDROmorphone 2 MG/ML VIAL IV PRN ×5 (01:21→09:10)
[2018-11-13] MEDS: LORazepam 2 MG/ML VIAL IV PRN ×2 (02:06→07:15)
[2018-11-13] MEDS: DEXTROSE 5%-1/2NS 1,000 ML IV SCH ×2 (02:06→06:09)
[2018-11-13] MEDS: oxyCODONE HCL 5 MG TABLET PO PRN ×2 (03:55→11:02)
[2018-11-13] MEDS: 0.9 % SODIUM CHLORIDE 10 ML SYRINGE IV SCH (04:34)
[2018-11-13] MEDS: METOCLOPRAMIDE 10 MG/2 ML VIAL IV SCH ×2 (06:53→11:03)
[2018-11-13] MEDS: PANTOPRAZOLE 40 MG VIAL IV SCH (06:53)
[2018-11-13 06:55] LABS: ALT/SGPT 23 U/l (0-40); Albumin 3.9 gm/dL (3.2-5.2); Albumin/Globulin Ratio 1.5 (1.0-2.3); Alkaline Phosphatase 56 U/L (39-117); Bilirubin,Direct < 0.2 mg/dL (0.0-0.3); Blood Urea Nitrogen 5 mg/dl (6-20); Gamma Glutamyl Transpeptidase 24 U/L (5-36); Uric Acid 3.8 mg/dL (2.5-8.0)
--- NOTE | 2018-11-13 07:06 | Internal Med Progress Note ---
Medical - PN: Subj Patient information: Note initiated : 11/13/18 at 6:57 am Service Date, if different from initiated Date: [] Patient: Tameka Cody a 38 y/o F admitted on 11/09/18 for Alchohol withdrawl, nausea/vomiting. Chief Complaint: [] Interval history: Ms. Cody is a 38 year old F with history of alcohol use, who has been clean for the last 3 months. The patient notes she broke up with the boyfriend and started drinking again a week ago. She has been drinking 15 beers a day. Last drink was last night. Since this morning she notes she has been having nausea vomiting and abdominal pain. Pain is all over the abdomen started after she had vomiting. This has progressively gotten worse, patient also feels anxious and therefore came to the emergency room for further evaluation. She noted that she is withdrawing from alcohol and has withdrawn from alcohol in the past. The patient notes that she has had multiple episodes of vomiting, some streaks of blood in that. She also has diarrhea with some streaks of blood in that. Denies any melanotic black stools or clots of blood in the stool. The patient overall feels weak, has some headache, tremors and generalized aches. She denies any fevers chest pain shortness of breath changes in vision or difficulty in swallowing, admits to having anxiety is depressed, denies any swelling of joints bleeding from any other orifice. In the emergency room patient was afebrile, heart rate 98 blood pressure 143/90, respirations 20 saturating 95% on room air. WC count is 10.9 hemoglobin 14 platelets 339, sodium 140 potassium 3.6 bicarbonate 21 creatinine 1 AST 130 ALT 70 UA is negative for any infection alcohol level is 0.107 Patient has received multiple rounds of Reglan and Zofran, IV pantoprazole without much relief her symptoms. She also received some Ativan. Patient is therefore being admitted to the hospital with a diagnosis of intractable nausea vomiting alcohol withdrawal 11/09 Patient seen and examined, still has some nausea but no vomiting. Clinically doing much better and feels better compared to yesterday. Still has some abd ominal pain in the lower abdomen x-ray abdomen was negative. Labs are stable. Transfer the patient to [facility]. CIWA scores have been low 11/10 Pt seen examined, no acute issues, still has pain in the abdomen, rates severe, still has nausea. Pt had negative lipase on admission, repeat lipase is elevated, CT shows inflammation around head of pancreas, indicating pancreatitis vs peptic ulcer disease. GI consulted for EGD IV pain meds, clear liquid diet for now. 11/11 Patient seen and examined, still has abdominal pain and nausea. Her lipase level is trending down. She will be n.p.o. today for endoscopy this evening. Continue pain medications No new complaints or symptoms She is passing gas 11/12 Pt seen examined, still has nausea, unable to tolerate po much abdominal pain today is reported as worsen than yesterday her lipase is trending down, wbc is normal, there is clear discordance between the lab parameters for pancreatitis, and patients clinical report. will proceed with MRI/MRCP today for further evaluation. 11/13 Feeling better, tolerating full liquid diet, desiring to go home. Improved enzymes. - Constitutional Vitals: Vital Signs Temp Pulse Resp BP Pulse Ox 98.2 F 88 16 133/95 97 11/13/18 04:00 11/13/18 04:00 11/13/18 04:00 11/13/18 04:00 11/13/18 04:00 Period Temp Pulse Resp BP Sys/Lomeli Pulse Ox Last 24 Hr 97.8 F-98.3 F 74-88 16-22 126-160/82-115 96-99 Intake and Output 11/12/18 11/13/18 11/13/18 21:59 05:59 13:59 Intake Total 1070 1015 Output Total 50 Balance 1020 1015 Weight 63.049 kg Intake & Output: Intake & Output 11/12/18 11/13/18 11/13/18 21:59 05:59 13:59 Intake Total 1070 1015 Output Total 50 Balance 1020 1015 Weight 63.049 kg Intake: IV 665 Dextrose 5%-1/2Ns IV Solution 1 665 ,000 ml @ 70 mls/hr IV .[id number] [facility] Rx#:[id number] Oral 1070 350 Output: Emesis 50 Other: Meal Dinner Percent of Meal Consumed 100% Feeding Ability Independent # Voids 1 2 Medical - PN: Obj Da - Labs CBC & Chem 7: 11/12/18 03:40 11/13/18 03:54 Labs: Abnormal Lab Results 11/13/18 11/12/18 11/12/18 03:54 03:40 03:40 RBC Hgb Hct Lymph # (Auto) Anion Gap BUN 5 L 2 L Glucose 143 H 123 H Uric Acid 2.3 L Calcium Phosphorus 4.9 H Total Protein Globulin Triglycerides Amylase Lipase 95 H 11/12/18 11/11/18 11/11/18 03:40 04:00 04:00 RBC 3.87 L Hgb Hct 35.2 L Lymph # (Auto) 1.3 L Anion Gap BUN 4 L Glucose 116 H Uric Acid Calcium 7.8 L Phosphorus Total Protein 5.4 L Globulin 2.1 L Triglycerides 158 H Amylase Lipase 287 H 11/11/18 11/10/18 11/10/18 04:00 04:45 04:45 RBC 3.58 L Hgb 11.1 L Hct 32.8 L Lymph # (Auto) Anion Gap 7.0 L BUN Glucose Uric Acid Calcium 8.0 L Phosphorus 2.0 L Total Protein 5.3 L Globulin 2.1 L Triglycerides Amylase 163 H Lipase 406 H Meds: Medications Acetaminophen (Tylenol) 650 mg PO Q6HP PRN PRN Reason: PAIN/FEVER > 101 Belladonna/Phenobarbital (Gi Cocktail) 1 dose PO Q4HP PRN PRN Reason: Dyspepsia Last Admin: 11/10/18 09:17 Dose: 1 dose Documented by: Clonidine HCl (Catapres) 0.1 mg PO Q4HP PRN PRN Reason: Alcohol Withdrawal Fentanyl (Duragesic) 25 mcg TOPICAL Q72H [facility] Last Admin: 11/12/18 12:27 Dose: 25 mcg Documented by: Heparin Sodium (Porcine) (Heparin) 5,000 unit SQ Q12 [facility] Last Admin: 11/12/18 21:22 Dose: 5,000 unit Documented by: Hydromorphone HCl (Dilaudid) 0.5 - 1 mg IV Q2HP PRN PRN Reason: PAIN LEVEL > 6 Last Admin: 11/13/18 04:32 Dose: 0.5 mg Documented by: Dextrose/Sodium Chloride (Dextrose 5%-1/2ns Iv Solution) 1,000 mls @ 70 mls/hr IV .[id number] [facility] Last Admin: 11/13/18 06:09 Dose: Not Given Documented by: Lorazepam (Ativan) 1 mg IV Q4HP PRN PRN Reason: ANXIETY/SEDATION Last Admin: 11/13/18 02:06 Dose: 1 mg Documented by: Metoclopramide HCl (Reglan) 10 mg IV ACHS [facility] Last Admin: 11/12/18 21:23 Dose: 10 mg Documented by: Multivit/Ca Carb/B Cmplx/FA/Prenat (Diatx) 1 tab PO DAILY [facility] Last Admin: 11/12/18 07:21 Dose: Not Given Documented by: Naloxone HCl (Narcan) 0.1 mg IV Q2MIN PRN PRN Reason: Opiate Reversal Nicotine (Nicoderm) 14 mg TOPICAL DAILY@1000 [facility] Last Admin: 11/12/18 09:55 Dose: 14 mg Documented by: Ondansetron HCl (Zofran) 4 mg IV Q4HP PRN PRN Reason: Nausea And Vomiting Last Admin: 11/12/18 12:29 Dose: 4 mg Documented by: Oxycodone HCl (Roxicodone) 5 mg PO Q6HP PRN PRN Reason: pain not responding to nsaid Last Admin: 11/13/18 03:55 Dose: 5 mg Documented by: Pantoprazole Sodium (Protonix) 40 mg IV BIDAC [facility] Last Admin: 11/12/18 17:11 Dose: 40 mg Documented by: Potassium/Phosphorus/Sodium (Neutra Phos) 1 packet PO BID [facility] Last Admin: 11/12/18 21:23 Dose: 1 packet Documented by: Sodium Chloride (Saline Flush) 10 ml IV Q8 [facility] Last Admin: 11/13/18 04:34 Dose: Not Given Documented by: Thiamine HCl (Vitamin B1) 100 mg PO DAILY [facility] Last Admin: 11/12/18 07:22 Dose: Not Given Documented by: Zolpidem Tartrate (Ambien) 10 mg PO HSP PRN PRN Reason: Insomnia Last Admin: 11/12/18 21:23 Dose: 10 mg Documented by: Medical - PN: A/P - Time Spent With Patient Total time spent is greater than 50% in coordination of care (as documented) at patient's floor/unit and/or counseling patient: - Narrative A/P Narrative: A: *Alcohol withdrawal: resolved *Intractable nausea/vomiting: improved -seen by GI, EGD with mild duodenitis *anxiety: *Acute pancreatitis, alcoholic: improved and tolerating full liquid diet -MRCP unremarkable, improvement in pancreatitis/duodenitits Plan -d/c ciwa protoc, pt no longer withdrwaing -IV ativan q4hr prn anxiety -appreciate GI input, EGD negative -Zofran/reglan for nausea vomiting -IV dilaudid, resumed given concern for pancreatitis, Add fentanyl patch 25mcg for additional baseline pain control, -IV ppi to continue -Replace lytes prn -ppx: hep sq Full code. Medical - PN: Qual - Stroke Symptom Onset Unknown: No - VTE Deep Vein Thrombosis/Pulmonary Embolism Present on Admission: No
[2018-11-13] MEDS: THIAMINE 100 MG TABLET PO SCH (08:27)
[2018-11-13] MEDS: FOLIC ACID/VITAMIN B COMP W-C 1 TAB TABLET PO SCH (08:27)
[2018-11-13] MEDS: HEPARIN 5,000 UNIT/ML VIAL SQ SCH (08:28)
[2018-11-13] MEDS: NICOTINE 14 MG PATCH TOPICAL SCH (08:28)
--- NOTE | 2018-11-13 11:02 | Discharge Summary ---
Medical - DS: Prov Patient information: Note initiated : 11/13/18 at 11:00 am Service Date, if different from initiated Date: [] Patient: Tameka Cody a 38 y/o F admitted on 11/09/18 for Alchohol withdrawl, nausea/vomiting. Chief Complaint: [] Date of admission: 11/09/18 01:01 Discharge date: 11/13/18 Primary care physician: Yue Cowart Consults: 11/08/18 Consult to Physician [CONS] Stat Comment: Consulting Provider: Cecile Durant Reason For Exam: Physician to Consult 11/10/18 14:51 Consult to Physician [CONS] Routine Comment: Consulting Provider: James Partida Reason For Exam: Physician to Consult Medical - DS: Meds - Discharge Medications Prescriptions: HYDROcodone/APAP 5/325MG [[place] 5-325Mg] 1 tab PO Q4HP PRN #30 tab PRN Reason: Pain LORazepam [Ativan] 1 mg PO QIDP PRN #30 tab PRN Reason: Anxiety Pantoprazole [Protonix] 40 mg PO QAMAC #30 tab Active and Home Medications: Home Medications Zolpidem Tartrate [Ambien Cr] 12.5 mg PO HS 01/05/17 [History Confirmed 11/09/18 Last Taken 01/23/17 21:00] Cyanocobalamin/FA/Pyridoxine [B Complex-Folic Acid Tablet] 1 each PO DAILY #1 tablet 01/26/17 [Rx Confirmed 11/09/18 Last Taken Unknown] Nicotine [Nicoderm] 14 mg TOPICAL DAILY@1000 #30 patch 01/26/17 [Rx Confirmed 11/09/18 Last Taken Unknown] Pantoprazole [Protonix] 40 mg PO QAMAC #5 tab 10/15/18 [Rx Confirmed 11/09/18 Last Taken Unknown] LORazepam [Ativan] 1 mg PO QID PRN 11/09/18 [History Confirmed 11/09/18 Last Taken Unknown] diphenhydrAMINE [Benadryl] 25 mg PO HSP PRN 11/09/18 [History Confirmed 11/09/18 Last Taken Unknown] Medical - DS: Hosp Hospital course: Ms. Cody is a 38 year old F with history of alcohol use, who has been clean for the last 3 months. The patient notes she broke up with the boyfriend and started drinking again a week ago. She has been drinking 15 beers a day. Last drink was last night. Since this morning she notes she has been having nausea vomiting and abdominal pain. Pain is all over the abdomen started after she had vomiting. This has progressively gotten worse, patient also feels anxious and therefore came to the emergency room for further evaluation. She noted that she is withdrawing from alcohol and has withdrawn from alcohol in the past. The patient notes that she has had multiple episodes of vomiting, some streaks of blood in that. She also has diarrhea with some streaks of blood in that. Denies any melanotic black stools or clots of blood in the stool. The patient overall feels weak, has some headache, tremors and generalized aches. She denies any fevers chest pain shortness of breath changes in vision or difficulty in swallowing, admits to having anxiety is depressed, denies any swelling of joints bleeding from any other orifice. In the emergency room patient was afebrile, heart rate 98 blood pressure 143/90, respirations 20 saturating 95% on room air. WC count is 10.9 hemoglobin 14 platelets 339, sodium 140 potassium 3.6 bicarbonate 21 creatinine 1 AST 130 ALT 70 UA is negative for any infection alcohol level is 0.107 Patient has received multiple rounds of Reglan and Zofran, IV pantoprazole without much relief her symptoms. She also received some Ativan. Patient is therefore being admitted to the hospital with a diagnosis of intractable nausea vomiting alcohol withdrawal 11/09 Patient seen and examined, still has some nausea but no vomiting. Clinically doing much better and feels better compared to yesterday. Still has some abdominal pain in the lower abdomen x-ray abdomen was negative. Labs are stable. Transfer the patient to [facility] status. CIWA scores have been low 11/10 Pt seen examined, no acute issues, still has pain in the abdomen, rates severe, still has nausea. Pt had negative lipase on admission, repeat lipase is elevated, CT shows inflammation around head of pancreas, indicating pancreatitis vs peptic ulcer disease. GI consulted for EGD IV pain meds, clear liquid diet for now. 11/11 Patient seen and examined, still has abdominal pain and nausea. Her lipase level is trending down. She will be n.p.o. today for endoscopy this evening. Continue pain medications No new complaints or symptoms She is passing gas 11/12 Pt seen examined, still has nausea, unable to tolerate po much abdominal pain today is reported as worsen than yesterday her lipase is trending down, wbc is normal, there is clear discordance between the lab parameters for pancreatitis, and patients clinical report. will proceed with MRI/MRCP today for further evaluation. 11/13 Feeling better, tolerating full liquid diet, desiring to go home. Improved enzymes. Discharge diagnosis: Alcoholic pancreatitis duodenitis anxiety alcohol w ithdrawal - Time Spent with Patient Total time spent providing and/or coordinating discharge services: Greater than 30 minutes Medical - DS: Exam - Constitutional Vitals: Vital Signs Temp Pulse Resp BP Pulse Ox 11/13/18 08:00 98.4 F 16 124/80 100 11/13/18 04:00 98.2 F 88 16 133/95 97 11/12/18 23:35 98.1 F 80 138/102 97 11/12/18 21:30 97.8 F 78 22 140/115 99 11/12/18 15:00 97.8 F 74 18 126/85 96 Intake and Output 11/12/18 11/13/18 11/13/18 21:59 05:59 13:59 Intake Total 1070 1015 Output Total 50 Balance 1020 1015 Intake: IV 665 Dextrose 5%-1/2Ns IV Solution 1 665 ,000 ml @ 70 mls/hr IV .[id number] [facility] Rx#:[id number] Oral 1070 350 Output: Emesis 50 Other: Meal Dinner Percent of Meal Consumed 100% Feeding Ability Independent # Voids 1 2 Weight 63.049 kg Medical - DS: Data Labs on day of discharge: Labs from last 24 hours 11/13/18 03:54 Sodium 141 Potassium 3.3 Chloride 101 Carbon Dioxide 25 Anion Gap 15.0 BUN 5 L Creatinine 0.9 GFR Calculation 82 Glucose 143 H Uric Acid 3.8 Calcium 9.3 Phosphorus 4.9 H Magnesium 1.8 Total Bilirubin 0.4 Direct Bilirubin < 0.2 GGT 24 AST 25 ALT 23 Alkaline Phosphatase 56 Lactate Dehydrogenase 205 Total Protein 6.5 Albumin 3.9 Globulin 2.6 Albumin/Globulin Ratio 1.5 Triglycerides 51 Medical - DS: A/P - Patient/Caregiver Discharge Instructions Activity: increase activity as tolerated Diet: Full Liquid - Follow up Plan Follow up with: Yue Cowart ARNP [Primary Care Provider] - Disposition: Home, Self-Care Prognosis: Fair Rehab Potential: Fair Medical - DS: Qual - VTE Deep Vein Thrombosis/Pulmonary Embolism Present on Admission: No
--- NOTE | 2018-11-13 12:59 | Surgical Pathology Report ---
HISTOLOGY SPECIMEN MICROSCOPIC DIAGNOSIS STOMACH, ANTRUM, BIOPSY: -- MILD CHRONIC GASTRITIS WITH FEATURES SUGGESTIVE OF REACTIVE GASTROPATHY. -- NO HELICOBACTER TYPE ORGANISMS IDENTIFIED (ALCIAN YELLOW STAIN WITH ADEQUATE TECHNICAL CONTROL). (RLF:adj) CLINICAL HISTORY (?) Ulcer; abdominal pain; history of pancreatitis, probably alcohol induced. PROCEDURAL IMPRESSION Esophagitis; rule out H. pylori. GROSS DESCRIPTION Received in formalin labeled gastric antrum biopsy, are four fragments of [place]-for[place] tissue ranging in size from 0.3 to 0.5 cm. Totally submitted - one cassette. (KGW:[email or web address]) Electronically Signed by: Vivien Salas M.D.
== END 2018-11-13 12:20 | disposition home or self-care (01) | DRG 896 ==
LOC: ED 18:39 → ICU 11-09 01:01 → MEDSUR 11-09 09:30
PROVIDERS: ADMIT Internal Medicine; ATTEND Internal Medicine

== ENCOUNTER 2019-09-09 17:33 | Inpatient (IN) ==
[2019-09-09] MEDS ORDERED: IOPAMIDOL 100 ML BOTTLE IV ONE (17:34)
[2019-09-09] MEDS ORDERED: ONDANSETRON 4 MG/2 ML VIAL IV ONE ×2 (18:18→20:27)
[2019-09-09] MEDS ORDERED: 0.9 % SODIUM CHLORIDE 1,000 ML IV ONE (18:19)
[2019-09-09] MEDS ORDERED: LORazepam 2 MG/ML VIAL IV ONE ×3 (18:24→22:34)
[2019-09-09] MEDS ORDERED: HYDROmorphone 2 MG/ML VIAL IV SCH ×2 (18:30→19:15)
--- NOTE | 2019-09-09 18:49 | Emergency Department Note ---
Alcohol HPI - General Chief Complaint: Alcohol Stated Complaint: Detox from alcohol Time Seen by Provider: 09/09/19 18:18 Mode of arrival: wheelchair - History of Present Illness HPI Narrative: Patient is a 39-year-old female that comes into the emergency department today with a report of alcohol withdrawal. She has a history of alcohol abuse and reports that she has been sober since April 16, 2019, but relapsed 2 weeks ago and has been drinking 1/5 of vodka a day for the last 2 weeks. She last drank today at noon where she had one shot of alcohol. Since around 2 PM today she has had sharp stabbing pain in her abdomen with radiation towards her back and nausea with vomiting. She did take a dose of Zofran this afternoon but this only helps for a short period of time. She does report having some shaking, sweating, tactile sensations, anxiety, and nausea. She denies hallucinations or seizures. Does report a past history of pancreatitis and feels like the pain is similar to when she had pancreatitis. She has not had any fevers or chills. - Related Data Home Medications Medication Instructions Recorded Confirmed Zolpidem Tartrate [Ambien Cr] 12.5 mg PO HS 01/05/17 09/09/19 Allergies Allergy/AdvReac Type Severity Reaction Status Date / Time morphine AdvReac Mild Anxiety Verified 08/11/19 13:00 promethazine [From Phenergan] AdvReac Mild Agitated Verified 08/11/19 13:00 trazodone AdvReac Mild nerve pain Verified 08/11/19 13:00 in neck Review of Systems Constitutional: Denies: fever, chills Eyes: Denies: vision change ENT ED: Denies: ear pain, throat pain Cardiovascular: Denies: chest pain, palpitations Respiratory: Denies: cough, shortness of breath Gastrointestinal: Reports: abdominal pain, nausea, vomiting. Denies: diarrhea, constipation, hematochezia, melena, hematemesis Genitourinary: Denies: dysuria, frequency Musculoskeletal: Reports: back pain. Denies: joint swelling, joint pain, myalgia Integumentary: Denies: rash, lesions Neurological: Denies: headache, weakness Psychiatric: Reports: anxiety. Denies: depression, suicidal thoughts, homicidal thoughts, auditory hallucinations, visual hallucinations Endocrine: Denies: fatigue, heat or cold intolerance Hematological/Lymphatic: Denies: easy bleeding, easy bruising Past Medical History - Past Medical History Medical history: Reports: asthma, GERD, seizures, other (alcohol abuse, pancreatitis, alcohol withdrawal) Psychiatric history: Reports: anxiety Surgical history ED: Reports: tonsillectomy, other (breast augmentation) - Social History smoking status: Current every day smoker Alcohol use: Reports: Heavy, Recent Drug use: Reports: marijuana Physical Exam Limitations: no limitations General appearance: alert, tearful, other (moaning in pain.) Head: atraumatic, normocephalic Eye: Present: normal appearance, PERRL, EOMI. Absent: scleral icterus, conjunctival injection ENT: Present: normal oropharynx, mucous membranes moist Neck: Present: normal inspection, full ROM, trachea midline. Absent: lymphadenopathy Chest: Present: normal inspection, symmetric chest wall rise. Absent: tenderness Respiratory: Present: normal lung sounds bilaterally. Absent: respiratory distress, rales/crackles, wheezes, stridor, accessory muscle use, prolonged expiratory phase Cardiovascular: Present: regular rate, normal rhythm. Absent: systolic murmur, diastolic murmur Abdominal: Present: soft, tenderness (center of abdomen), guarding, normal bowel sounds. Absent: distention, rebound, rigidity Extremities: Present: normal inspection, full ROM, normal capillary refill. Absent: calf tenderness Back: Present: normal inspection, full ROM. Absent: CVA tenderness (R), CVA tenderness (L) Neurological: Present: alert, oriented X3, CN II-XII intact, other (fine tremor is noted with arms extended at the tips of fingers.) Psychiatric: Present: anxious, tearful Skin: Present: warm, normal color, other (mildly diaphoretic on the forehead. Palms or clammy.). Absent: rash Course - Reevaluation(s) Time: 22:05 (CBC unremarkable. The lipase is elevated at 65. AST and ALT are elevated today. Patient has a negative urine dipstick and negative urine drug screen. Her alcohol level is 0.261. She was given ondansetron for nausea, Dilaudid for pain, and Reglan for nausea. She continues to have vomiting and abdominal pain, and we will continue to try pain medication. She did receive a liter of normal saline. She received 2 different doses of 1 mg of Ativan IV for alcohol withdrawal. Patient is resting comfortably at this time. Currently pending CT scan at this time. Dr. Lambert will assume care at 2200 due to shift change.) Vital Signs Temperature 97.8 F 09/09/19 17:33 Pulse Rate 103 H 09/09/19 17:33 Respiratory Rate 20 09/09/19 17:33 Blood Pressure 135/94 09/09/19 17:33 Pulse Oximetry (%) 98 09/09/19 17:33 Temperature 97.8 F 09/09/19 17:33 Pulse Rate 112 H 09/09/19 21:46 Respiratory Rate 15 09/09/19 21:46 Blood Pressure 129/97 09/09/19 21:46 Pulse Oximetry (%) 99 09/09/19 21:46 Alcohol - Lab Data Result diagrams: 09/09/19 18:25 09/09/19 18:25 Lab Results 09/09/19 09/09/19 09/09/19 Range/Units 18:25 18:25 18:25 WBC 6.6 (4.5-11.0) K/mcL RBC 4.68 (4.00-5.20) M/mcL Hgb 14.1 (12.0-15.0) g/dL Hct 41.0 (36.0-48.0) % MCV 87.7 (80.0-100.0) fL MCH 30.0 (26.0-34.0) pg MCHC 34.3 (31.0-36.0) g/dL RDW 12.7 (11.5-14.5) % Plt Count 242 (140-440) K/mcL MPV 7.1 L (7.4-10.4) fL Gran % 72.5 (38.0-78.0) % Lymph % (Auto) 22.8 (15.5-49.0) % [place] % (Auto) 4.5 (1.0-12.0) % Eos % (Auto) 0 (0.0-7.0) % Baso % (Auto) 0.2 (0.0-2.0) % Gran # 4.8 (1.8-8.0) K/mcL Lymph # (Auto) 1.5 (1.5-4.8) K/mcL [place] # (Auto) 0.3 (0.1-0.9) K/mcL Eos # (Auto) 0 (0.0-0.7) K/mcL Baso # (Auto) 0 (0.0-0.3) K/mcL Sodium 145 (133-145) mmol/L Potassium 3.5 (3.3-5.1) mmol/L Chloride 103 (96-108) mmol/L Carbon Dioxide 24 (22-30) mmol/L Anion Gap 18.0 H (8-16) BUN 12 (6-20) mg/dl Creatinine 0.7 (0.6-1.1) mg/dl GFR Calculation 110 Glucose 118 H (70-105) mg/dL Calcium 8.3 L (8.6-10.4) mg/dl Magnesium 1.6 (1.6-2.5) mg/dL Total Bilirubin 0.4 (0.0-1.0) mg/dL AST 52 H (0-37) U/l ALT 55 H (0-40) U/l Alkaline Phosphatase 75 (39-117) U/L Total Protein 6.8 (5.9-8.4) gm/dL Albumin 4.1 (3.2-5.2) gm/dL Globulin 2.7 (2.2-3.7) gm/dL Albumin/Globulin Ratio 1.5 (1.0-2.3) Lipase 65 H (7-60) U/L Vitamin B12 476.3 (232-1245) pg/ml Urine Opiates Screen (NONDETECTED) Ur Oxycodone Screen (NONDETECTED) Urine Methadone Screen (NONDETECTED) Ur Barbiturates Screen (NONDETECTED) Ur Phencyclidine Scrn (NONDETECTED) Ur Amphetamines Screen (NONDETECTED) U Benzodiazepines Scrn (NONDETECTED) Urine Cocaine Screen (NONDETECTED) U Marijuana (THC) Screen (NONDETECTED) Ethyl Alcohol 0.261 H (<0.010) gm/dl 09/09/19 Range/Units 18:35 WBC (4.5-11.0) K/mcL RBC (4.00-5.20) M/mcL Hgb (12.0-15.0) g/dL Hct (36.0-48.0) % MCV (80.0-100.0) fL MCH (26.0-34.0) pg MCHC (31.0-36.0) g/dL RDW (11.5-14.5) % Plt Count (140-440) K/mcL MPV (7.4-10.4) fL Gran % (38.0-78.0) % Lymph % (Auto) (15.5-49.0) % [place] % (Auto) (1.0-12.0) % Eos % (Auto) (0.0-7.0) % Baso % (Auto) (0.0-2.0) % Gran # (1.8-8.0) K/mcL Lymph # (Auto) (1.5-4.8) K/mcL [place] # (Auto) (0.1-0.9) K/mcL Eos # (Auto) (0.0-0.7) K/mcL Baso # (Auto) (0.0-0.3) K/mcL Sodium (133-145) mmol/L Potassium (3.3-5.1) mmol/L Chloride (96-108) mmol/L Carbon Dioxide (22-30) mmol/L Anion Gap (8-16) BUN (6-20) mg/dl Creatinine (0.6-1.1) mg/dl GFR Calculation Glucose (70-105) mg/dL Calcium (8.6-10.4) mg/dl Magnesium (1.6-2.5) mg/dL Total Bilirubin (0.0-1.0) mg/dL AST (0-37) U/l ALT (0-40) U/l Alkaline Phosphatase (39-117) U/L Total Protein (5.9-8.4) gm/dL Albumin (3.2-5.2) gm/dL Globulin (2.2-3.7) gm/dL Albumin/Globulin Ratio (1.0-2.3) Lipase (7-60) U/L Vitamin B12 (232-1245) pg/ml Urine Opiates Screen None detected (NONDETECTED) Ur Oxycodone Screen None detected (NONDETECTED) Urine Methadone Screen None detected (NONDETECTED) Ur Barbiturates Screen None detected (NONDETECTED) Ur Phencyclidine Scrn None detected (NONDETECTED) Ur Amphetamines Screen None detected (NONDETECTED) U Benzodiazepines Scrn None detected (NONDETECTED) Urine Cocaine Screen None detected (NONDETECTED) U Marijuana (THC) Screen None detected (NONDETECTED) Ethyl Alcohol (<0.010) gm/dl Disposition Pt seen by [employer]/PA only: No (Dr. Lambert) Clinical Impression: Pancreatitis, acute, Alcohol withdrawal Disposition: Still a Patient Condition: Undetermined Referrals: No,PCP [Primary Care Provider] -
[2019-09-09 19:13] LABS: Basophils # (Auto) 0 K/mcL (0.0-0.3); Basophils % (Auto) 0.2 % (0.0-2.0); Eosinophils # (Auto) 0 K/mcL (0.0-0.7); Eosinophils % (Auto) 0 % (0.0-7.0); Granulocytes % (Auto) 72.5 % (38.0-78.0); Hemoglobin 14.1 g/dL (12.0-15.0); Lymphocytes # (Auto) 1.5 K/mcL (1.5-4.8); Lymphocytes % (Auto) 22.8 % (15.5-49.0); Mean Cell Volume 87.7 fL (80.0-100.0); Mean Corpuscular HGB Conc 34.3 g/dL (31.0-36.0); Mean Platelet Volume 7.1 fL (7.4-10.4); Monocytes # (Auto) 0.3 K/mcL (0.1-0.9); Monocytes % (Auto) 4.5 % (1.0-12.0); Platelet Count 242 K/mcL (140-440); RBC 4.68 M/mcL (4.00-5.20); Red Cell Distribution Width 12.7 % (11.5-14.5); WBC 6.6 K/mcL (4.5-11.0)
[2019-09-09 19:28] LABS: Alcohol,Blood 0.261 gm/dl (<0.010)
[2019-09-09 19:33] LABS: ALT/SGPT 55 U/l (0-40); AST/SGOT 52 U/l (0-37); Albumin 4.1 gm/dL (3.2-5.2); Albumin/Globulin Ratio 1.5 (1.0-2.3); Alkaline Phosphatase 75 U/L (39-117); Bilirubin,Total 0.4 mg/dL (0.0-1.0); Blood Urea Nitrogen 12 mg/dl (6-20); Calcium 8.3 mg/dl (8.6-10.4); Carbon Dioxide 24 mmol/L (22-30); Chloride 103 mmol/L (96-108); Globulin 2.7 gm/dL (2.2-3.7); Glomerular Filtration Rate 110; Glucose 118 mg/dL (70-105)
[2019-09-09 19:35] LABS: Amphetamine Screen,Urine NONE DETECTED (NONDETECTED); Barbiturate Screen,Urine NONE DETECTED (NONDETECTED); Benzodiazepines Screen,Urine NONE DETECTED (NONDETECTED); Cannabinoid Screen,Urine NONE DETECTED (NONDETECTED); Cocaine Screen,Urine NONE DETECTED (NONDETECTED); Opiate Screen,Urine NONE DETECTED (NONDETECTED); Oxycodone, Urine Screen NONE DETECTED (NONDETECTED); Phencyclidine Screen,Urine NONE DETECTED (NONDETECTED)
[2019-09-09] MEDS ORDERED: PROMETHAZINE 25 MG/ML VIAL IV ONE (21:02)
[2019-09-09] MEDS ORDERED: METOCLOPRAMIDE 10 MG/2 ML VIAL IV ONE (21:13)
[2019-09-09] MEDS ORDERED: fentaNYL 100 MCG/2 ML VIAL IV STA (21:51)
[2019-09-09] MEDS ORDERED: diphenhydrAMINE 50 MG/ML VIAL IV ONE (22:34)
--- NOTE | 2019-09-09 22:35 | Internal Med History&Physical ---
Medical - H&P: [facility] Patient information: Note initiated : 09/09/19 at 10:32 pm Service Date, if different from initiated Date: [] Patient: Tameka Cody a 39 y/o F admitted on for Detox from alcohol. Chief Complaint: [] History of present illness: Ms. Cody is a 39 year old F 89-year-old female with history of alcohol abuse who states she was sober in March but then started drinking 1/5 of vodka 8 8 days ago after her boyfriend broke up with her. Last drink was this afternoon. Since that time patient states she is withdrawing and has been anxious, diaphoretic, tachycardic, N/V, sharp epigastric abdominal pain radiating to the back. Reports headaches as well, And fevers and chills no seizures. Does report auditory hallucinations. Did have pancreatitis earlier in the year when she was hospitalized with intractable nausea vomiting and pancreatitis . In the ED labs were essentially unremarkable, lipase is only 65. Blood alcohol level is 261. She is tachycardic 112 initially, initially mildly hypertensive.. No tachypnea. Blood pressure stable temperature within normal limits. CT abdomen showed no evidence of pancreatitis or acute pathology. She seems to be upset that she is drinking again and "wants to stop this". I discussed with her regarding follow-up with Dr. Ortega Review of Systems: Positives as above and reports constipation. Denies chest pain/cough/dyspnea/diarrhea. Remaining 10 point review of system reviewed negative Medical - H&P: [facility] Medical history: Medical History (Last Updated 08/11/19 @ 13:30 by Paul See DO) Pancreatitis, acute (Acute) Alcohol abuse (Acute) Anxiety disorder (Acute) Alcohol withdrawal (Acute) Epigastric pain (Acute) Alcohol withdrawal (Acute) Aspiration pneumonia (Acute) Alcohol withdrawal seizure (Acute) Dehydration (Acute) Community acquired pneumonia (Acute) Muscle spasm (Acute) Alcohol withdrawal delirium (Acute) Pancreatitis (Acute) Nausea & vomiting (Acute) Gastroenteritis (Acute) Alcohol withdrawal (Acute) Gastritis (Acute) Alcoholic intoxication (Acute) Abdominal pain (Acute) Alcohol dependence with withdrawal (Acute) Tobacco abuse Past Surgical History (Last Updated 08/11/19 @ 13:33 by Paul See DO) History of breast augmentation (Chronic) Tonsillectomy Family History (Last Updated 08/11/19 @ 13:32 by Paul See DO) Other Diabetes mellitus Heart disease Hypertension Mother and father both had hypertension Social History Patient smokes 3 to 4 cigarettes/day Recent daily alcohol use Lives by herself Medical - H&P: Meds Home Medications Medication Instructions Recorded Confirmed Type Zolpidem Tartrate [Ambien Cr] 12.5 mg PO HS 01/05/17 09/09/19 History Allergies Allergy/AdvReac Type Severity Reaction Status Date / Time morphine AdvReac Mild Anxiety Verified 08/11/19 13:00 promethazine [From Phenergan] AdvReac Mild Agitated Verified 08/11/19 13:00 trazodone AdvReac Mild nerve pain Verified 08/11/19 13:00 in neck Medical - H&P: Exam - Constitutional Vitals: Temp Pulse Resp BP Pulse Ox 97.8 F 75 11 L 131/87 93 09/09/19 17:33 09/09/19 22:16 09/09/19 22:16 09/09/19 22:16 09/09/19 22:16 Exam: General: Alert, Awake, agitated/anxious Eyes/N/T: EOMI, PEERL, DMM Head/Neck: neck supple, normocephalic atraumatic CV: Tachycardic but regular ,no murmurs, normal s1/s2 Pulm: Clear b/l, no wheezing/rhonchi/rales Abd: soft, epigastric TTP, +BS x4 Ext: no clubbing/cyanosis/edema Neuro: Alert, no focal deficits, moves all extremities, CN 2-12 grossly intact, symmetrical strength b/l upper/lower, sensations intact b/l upper/lower, tremulous Skin: warm/dry Medical - H&P: Reslt - Labs CBC & Chem 7: 09/09/19 18:25 09/09/19 18:25 Labs: Short CBC 09/09/19 Range/Units 18:25 WBC 6.6 (4.5-11.0) K/mcL Hgb 14.1 (12.0-15.0) g/dL Hct 41.0 (36.0-48.0) % Plt Count 242 (140-440) K/mcL BMP 09/09/19 18:25 Sodium 145 Potassium 3.5 Chloride 103 Carbon Dioxide 24 BUN 12 Creatinine 0.7 Glucose 118 H Calcium 8.3 L Liver Function 09/09/19 Range/Units 18:25 Total Bilirubin 0.4 (0.0-1.0) mg/dL AST 52 H (0-37) U/l ALT 55 H (0-40) U/l Alkaline Phosphatase 75 (39-117) U/L Albumin 4.1 (3.2-5.2) gm/dL - Impressions CT of the pelvis no pancreatitis or acute pathology Medical - H&P: A/P - Narrative A/P Narrative: A: *Etoh abuse with W/D: *N/V/Abdominal pain: 2/2 above -CT a/p no pancreatitis or acute pathology *Anxiety: Does not take home medication but feels she needs it at home *GERD: *Tobacco abuse: P: -IVF -Pain control and antiemetics -N.p.o. tonight -CIWA, vitamins, prn Benzos -Dr Ortega consult - -Smoking and alcohol cessation counseling -ppx: lovenox/h2
[2019-09-10] MEDS ORDERED: diphenhydrAMINE 50 MG/ML VIAL ONE ×2 (00:05→04:12)
[2019-09-10] MEDS ORDERED: MAGNESIUM SULFATE 2 GM/50 ML BAG IV PRN (01:11)
[2019-09-10] MEDS ORDERED: POTASSIUM CHLORIDE 20 MEQ TABLET PO PRN ×2 (01:11)
[2019-09-10] MEDS ORDERED: SENNOSIDES 1 TABLET PO PRN (01:11)
[2019-09-10] MEDS ORDERED: PROMETHAZINE 25 MG/ML VIAL IV PRN (01:11)
[2019-09-10] MEDS ORDERED: POLYETHYLENE GLYCOL 3350 17 GM PACKET PO PRN (01:11)
[2019-09-10] MEDS ORDERED: ACETAMINOPHEN 325 MG TABLET PO PRN (01:11)
[2019-09-10] MEDS ORDERED: LACTULOSE 20 GM/30 ML ORAL.SOL PO PRN (01:11)
[2019-09-10] MEDS ORDERED: PROCHLORPERAZINE 10 MG TABLET PO PRN (01:11)
[2019-09-10] MEDS ORDERED: POTASSIUM CHLORIDE 40 MEQ in DEXTROSE 5% IN WATER 500 ML IV PRN (01:11)
[2019-09-10] MEDS: LORazepam 2 MG/ML VIAL IV PRN ×8 (01:16→19:24)
[2019-09-10] MEDS: 0.9 % SODIUM CHLORIDE 1,000 ML IV SCH ×2 (01:16→12:10)
[2019-09-10] MEDS: ONDANSETRON 4 MG/2 ML VIAL IV PRN ×4 (01:17→19:25)
[2019-09-10] MEDS: diphenhydrAMINE 50 MG/ML VIAL IV PRN ×2 (01:18→04:14)
[2019-09-10] MEDS ORDERED: LORazepam 2 MG/ML VIAL ONE ×6 (01:55→06:09)
[2019-09-10] MEDS ORDERED: chlordiazePOXIDE 25 MG CAPSULE PO ONE (02:36)
[2019-09-10] MEDS: chlordiazePOXIDE 25 MG CAPSULE PO PRN ×3 (02:57→19:26)
[2019-09-10] MEDS ORDERED: ONDANSETRON 4 MG/2 ML VIAL ONE ×2 (04:12)
[2019-09-10] MEDS ORDERED: 0.9 % SODIUM CHLORIDE 10 ML SYRINGE IV SCH (06:00)
[2019-09-10] MEDS: 0.9 % SODIUM CHLORIDE 10 ML SYRINGE IV SCH ×4 (06:05→21:13)
[2019-09-10 06:30] LABS: Bilirubin,Direct < 0.2 mg/dL (0.0-0.3); Chloride 102 mmol/L (96-108)
[2019-09-10 06:34] LABS: ALT/SGPT 43 U/l (0-40); AST/SGOT 44 U/l (0-37); Albumin 3.7 gm/dL (3.2-5.2); Albumin/Globulin Ratio 1.7 (1.0-2.3); Alkaline Phosphatase 68 U/L (39-117); Bilirubin,Total 0.6 mg/dL (0.0-1.0); Blood Urea Nitrogen 10 mg/dl (6-20); Calcium 7.6 mg/dl (8.6-10.4); Carbon Dioxide 26 mmol/L (22-30); Globulin 2.2 gm/dL (2.2-3.7); Glomerular Filtration Rate 116; Glucose 97 mg/dL (70-105); Lactate Dehydrogenase 335 U/L (94-250); Phosphorous 1.6 mg/dL (2.7-4.5); Triglycerides 54 mg/dl (<150); Uric Acid 5.3 mg/dL (2.5-8.0)
[2019-09-10] MEDS ORDERED: MAGNESIUM SULFATE 2 GM/50 ML BAG IV ONE (07:03)
[2019-09-10] MEDS ORDERED: POTASSIUM PHOSPHATE 40 MEQ in DEXTROSE 5% IN WATER 500 ML IV ONE ×2 (07:03→16:43)
--- NOTE | 2019-09-10 07:06 | Internal Med Progress Note ---
Medical - PN: Subj Patient information: Note initiated : 09/10/19 at 7:02 am Service Date, if different from initiated Date: [] Patient: Tameka Cody a 39 y/o F admitted on 09/09/19 for Detox from alcohol. Chief Complaint: [] Interval history: Ms. Cody is a 39 year old F 89-year-old female with history of alcohol abuse who states she was sober in March but then started drinking 1/5 of vodka 8 8 days ago after her boyfriend broke up with her. Last drink was this afternoon. Since that time patient states she is withdrawing and has been anxious, diaphoretic, tachycardic, N/V, sharp epigastric abdominal pain radiating to the back. Reports headaches as well, And fevers and chills no seizures. Does report auditory hallucinations. Did have pancreatitis earlier in the year when she was hospitalized with intractable nausea vomiting and pancreatitis . In the ED labs were essentially unremarkable, lipase is only 65. Blood alcohol level is 261. She is tachycardic 112 initially, initially mildly hypertensive.. No tachypnea. Blood pressure stable temperature within normal limits. CT abdomen showed no evidence of pancreatitis or acute pathology. She seems to be upset that she is drinking again and "wants to stop this". I discussed with her regarding follow-up with Dr. Ortega 09/10 No vomiting since last night. Still has nausea. Still having abdominal pain which she describes as sharp/burning. Not sleep very well. Anxious. States constipation. And headaches /fever/chills. Review of Systems: denies vomiting/chest pain/cough/dyspnea/diarrhea. Otherwise see above. - Constitutional Vitals: Vital Signs Temp Pulse Resp BP Pulse Ox 98.1 F 93 H 20 138/97 98 09/10/19 04:00 09/10/19 04:00 09/10/19 04:00 09/10/19 04:00 09/10/19 04:00 Period Temp Pulse Resp BP Sys/Lomeli Pulse Ox Last 24 Hr 97.8 F-98.7 F 75-112 11- 92-157/73-124 93-100 Intake and Output 09/09/19 09/10/19 09/10/19 21:59 05:59 13:59 Intake Total 1000 240 Balance 1000 240 Weight 63.503 kg 65.181 kg Intake & Output: Intake & Output 09/09/19 09/10/19 09/10/19 21:59 05:59 13:59 Intake Total 1000 240 Balance 1000 240 Weight 63.503 kg 65.181 kg Intake: IV 1000 Sodium Chloride 0.9% 1,000 ml @ 1000 Wide Open IV BOLUS ONE Rx#: [id number] Oral 240 Other: # Voids 2 2 Exam: General: Alert, Awake, anxious Eyes/N/T: EOMI, Head/Neck: neck supple, CV: Tachycardic but regular ,no murmurs, Pulm: Clear b/l, no wheezing/rhonchi/rales Abd: soft, epigastric TTP, +BS x4 Ext: no clubbing/cyanosis/edema Neuro: Alert, no focal deficits, moves all extremities, Skin: warm/dry Medical - PN: Obj Da - Labs CBC & Chem 7: 09/09/19 18:25 09/10/19 04:00 Labs: Abnormal Lab Results 09/10/19 09/09/19 09/09/19 04:00 18:25 18:25 MPV Anion Gap Glucose Calcium 7.6 L Phosphorus 1.6 L Magnesium 1.2 L AST 44 H ALT 43 H Lactate Dehydrogenase 335 H 291 H Lipase Ethyl Alcohol 0.261 H 09/09/19 09/09/19 18:25 18:25 MPV 7.1 L Anion Gap 18.0 H Glucose 118 H Calcium 8.3 L Phosphorus Magnesium AST 52 H ALT 55 H Lactate Dehydrogenase Lipase 65 H Ethyl Alcohol Meds: Medications Acetaminophen (Tylenol) 650 mg PO Q6HP PRN PRN Reason: PAIN/FEVER > 101 Hydrocodone Bitart/Acetaminophen ([place] 5/325mg) 1 tab PO Q4HP PRN PRN Reason: PAIN LEVEL 3-6 Chlordiazepoxide HCl (Librium) 50 mg PO Q4HP PRN PRN Reason: Alcohol Withdrawal Last Admin: 09/10/19 02:57 Dose: 50 mg Documented by: Clonidine HCl (Catapres) 0.1 mg PO Q4HP PRN PRN Reason: ALC Diphenhydramine HCl (Benadryl) 12.5 mg IV Q4HP PRN PRN Reason: Nausea/vomit/Allergic Symptoms Last Admin: 09/10/19 04:14 Dose: 12.5 mg Documented by: Docusate Sodium (Colace) 100 mg PO BID [facility] Enoxaparin Sodium (Lovenox) 40 mg SQ DAILY PAUL Famotidine (Pepcid) 20 mg IV Q12 [facility] Folic Acid (Folic Acid) 1 mg PO DAILY [facility] Potassium Chloride 40 meq/ (Dextrose) 520 mls @ 130 mls/hr IV UD PRN PRN Reason: Potassium < 3 Magnesium Sulfate (Magnesium Sulfate) 2 gm in 50 mls @ 50 mls/hr IV UD PRN PRN Reason: Magnesium </= 1.6 Sodium Chloride (Sodium Chloride 0.9%) 1,000 mls @ 100 mls/hr IV .Q10H [facility] Stop: 09/10/19 21:10 Last Admin: 09/10/19 01:16 Dose: 100 mls/hr Documented by: Iron Carb/Multivit/[place]/Folic Acid (Multivitamin W/Minerals) 1 tab PO DAILY [facility] Lactulose (Cephulac) 20 gm PO DAILYP PRN PRN Reason: Constipation Lorazepam (Ativan) 0 mg IV Q4HP PRN; Protocol PRN Reason: etoh Withdrawal/Anxiety/[place] Last Admin: 09/10/19 06:08 Dose: 2 mg Documented by: Morphine Sulfate (Morphine) 0 mg IV Q3HP PRN PRN Reason: Pain Last Admin: 09/10/19 04:16 Dose: 2 mg Documented by: Ondansetron HCl (Zofran) 4 mg IV Q4HP PRN PRN Reason: Nausea And Vomiting Last Admin: 09/10/19 04:15 Dose: 4 mg Documented by: Polyethylene Glycol (Miralax) 17 gm PO DAILYP PRN PRN Reason: Constipation Potassium Chloride (Kdur) 40 meq PO UD PRN PRN Reason: Potssium is 3-3.5 Potassium Chloride (Kdur) 40 meq PO UD PRN PRN Reason: Potassium < 3 Prochlorperazine (Compazine) 10 mg PO Q6HP PRN PRN Reason: Nausea And Vomiting Promethazine HCl (Phenergan) 12.5 mg IV Q6HP PRN PRN Reason: Nausea And Vomiting Senna (Senokot) 2 tab PO DAILYP PRN PRN Reason: Constipation Sodium Chloride (Saline Flush) 10 ml IV Q8 [facility] Last Admin: 09/10/19 06:05 Dose: Not Given Documented by: Thiamine HCl (Vitamin B1) 100 mg PO QDAY PAUL Medical - PN: A/P - Time Spent With Patient Total time spent is greater than 50% in coordination of care (as documented) at patient's floor/unit and/or counseling patient: - Narrative A/P Narrative: A: *Etoh Abuse with W/D: *N/V/Abdominal pain: 2/2 above -CT a/p no pancreatitis or acute pathology -likely esophagitis from n/v; noted distal eso thickening *Anxiety: Does not take home medication but feels she needs it at home *GERD: *Tobacco abuse: *HypoMag/PHos: P: -IVF -Pain control and antiemetics -start clears -CIWA, vitamins, prn Benzos -Dr Ortega consult -replete electrolytes -Smoking and alcohol cessation counseling -ppx: lovenox/h2
--- NOTE | 2019-09-10 07:36 | Emergency Department Note ---
Alcohol HPI - General Chief Complaint: Alcohol Stated Complaint: Detox from alcohol Time Seen by Provider: 09/09/19 18:18 Mode of arrival: wheelchair Limitations: no limitations - Related Data Home Medications Medication Instructions Recorded Confirmed Zolpidem Tartrate [Ambien Cr] 12.5 mg PO HS 01/05/17 09/09/19 Allergies Allergy/AdvReac Type Severity Reaction Status Date / Time promethazine [From Phenergan] AdvReac Mild Agitated Verified 08/11/19 13:00 trazodone AdvReac Mild nerve pain Verified 08/11/19 13:00 in neck Review of Systems Constitutional: Denies: fever, chills Eyes: Denies: vision change ENT ED: Denies: ear pain, throat pain Cardiovascular: Denies: chest pain, palpitations Respiratory: Denies: cough, shortness of breath Gastrointestinal: Reports: abdominal pain, nausea, vomiting. Denies: diarrhea, constipation, hematochezia, melena, hematemesis Genitourinary: Denies: dysuria, frequency Musculoskeletal: Reports: back pain. Denies: joint swelling, joint pain, myalgia Integumentary: Denies: rash, lesions Neurological: Denies: headache, weakness Psychiatric: Reports: anxiety. Denies: depression, suicidal thoughts, homicidal thoughts, auditory hallucinations, visual hallucinations Endocrine: Denies: fatigue, heat or cold intolerance Hematological/Lymphatic: Denies: easy bleeding, easy bruising Past Medical History - Past Medical History Medical history: Reports: asthma, GERD, seizures, other (alcohol abuse, pancreatitis, alcohol withdrawal) Psychiatric history: Reports: anxiety Surgical history ED: Reports: tonsillectomy, other (breast augmentation) - Social History smoking status: Current every day smoker Alcohol use: Reports: Heavy, Recent Drug use: Reports: marijuana Physical Exam Limitations: no limitations General appearance: alert, tearful, other (moaning in pain.) Course Vital Signs Temperature 97.8 F 09/09/19 17:33 Pulse Rate 103 H 09/09/19 17:33 Respiratory Rate 20 09/09/19 17:33 Blood Pressure 135/94 09/09/19 17:33 Pulse Oximetry (%) 98 09/09/19 17:33 Temperature 98.1 F 09/10/19 04:00 Pulse Rate 93 H 09/10/19 04:00 Respiratory Rate 20 09/10/19 04:00 Blood Pressure 138/97 09/10/19 04:00 Pulse Oximetry (%) 98 09/10/19 04:00 Alcohol - MDM Narrative Medical decision making narrative: Patient CT scan of the abdomen was unremarkable and so the patient was admitted to the hospital by Dr. Fuller. - Lab Data Lab results reviewed: Yes I reviewed the patient's lab results. Result diagrams: 09/09/19 18:25 09/10/19 04:00 Lab Results 09/09/19 09/09/19 09/09/19 Range/Units 18:25 18:25 18:25 WBC 6.6 (4.5-11.0) K/mcL RBC 4.68 (4.00-5.20) M/mcL Hgb 14.1 (12.0-15.0) g/dL Hct 41.0 (36.0-48.0) % MCV 87.7 (80.0-100.0) fL MCH 30.0 (26.0-34.0) pg MCHC 34.3 (31.0-36.0) g/dL RDW 12.7 (11.5-14.5) % Plt Count 242 (140-440) K/mcL MPV 7.1 L (7.4-10.4) fL Gran % 72.5 (38.0-78.0) % Lymph % (Auto) 22.8 (15.5-49.0) % Brantley % (Auto) 4.5 (1.0-12.0) % Eos % (Auto) 0 (0.0-7.0) % Baso % (Auto) 0.2 (0.0-2.0) % Gran # 4.8 (1.8-8.0) K/mcL Lymph # (Auto) 1.5 (1.5-4.8) K/mcL Brantley # (Auto) 0.3 (0.1-0.9) K/mcL Eos # (Auto) 0 (0.0-0.7) K/mcL Baso # (Auto) 0 (0.0-0.3) K/mcL Sodium 145 (133-145) mmol/L Potassium 3.5 (3.3-5.1) mmol/L Chloride 103 (96-108) mmol/L Carbon Dioxide 24 (22-30) mmol/L Anion Gap 18.0 H (8-16) BUN 12 (6-20) mg/dl Creatinine 0.7 (0.6-1.1) mg/dl GFR Calculation 110 Glucose 118 H (70-105) mg/dL Calcium 8.3 L (8.6-10.4) mg/dl Magnesium 1.6 (1.6-2.5) mg/dL Total Bilirubin 0.4 (0.0-1.0) mg/dL AST 52 H (0-37) U/l ALT 55 H (0-40) U/l Alkaline Phosphatase 75 (39-117) U/L Lactate Dehydrogenase (94-250) U/L Total Protein 6.8 (5.9-8.4) gm/dL Albumin 4.1 (3.2-5.2) gm/dL Globulin 2.7 (2.2-3.7) gm/dL Albumin/Globulin Ratio 1.5 (1.0-2.3) Lipase 65 H (7-60) U/L Vitamin B12 476.3 (232-1245) pg/ml Urine Opiates Screen (NONDETECTED) Ur Opiates Confirm Ur Oxycodone Screen (NONDETECTED) Urine Methadone Screen (NONDETECTED) Ur Methadone Confirm Ur Barbiturates Screen (NONDETECTED) Ur Barbiturate Confirm Ur Phencyclidine Scrn (NONDETECTED) Urine PCP Confirm Ur Amphetamines Screen (NONDETECTED) U Amphetamines Confirm U Benzodiazepines Scrn (NONDETECTED) U Benzodiazepine Confm Urine Cocaine Screen (NONDETECTED) Urine Cocaine Confirm U Cannabinoids Confirm U Marijuana (THC) Screen (NONDETECTED) Ethyl Alcohol 0.261 H (<0.010) gm/dl 09/09/19 09/09/19 Range/Units 18:25 18:35 WBC (4.5-11.0) K/mcL RBC (4.00-5.20) M/mcL Hgb (12.0-15.0) g/dL Hct (36.0-48.0) % MCV (80.0-100.0) fL MCH (26.0-34.0) pg MCHC (31.0-36.0) g/dL RDW (11.5-14.5) % Plt Count (140-440) K/mcL MPV (7.4-10.4) fL Gran % (38.0-78.0) % Lymph % (Auto) (15.5-49.0) % Brantley % (Auto) (1.0-12.0) % Eos % (Auto) (0.0-7.0) % Baso % (Auto) (0.0-2.0) % Gran # (1.8-8.0) K/mcL Lymph # (Auto) (1.5-4.8) K/mcL Brantley # (Auto) (0.1-0.9) K/mcL Eos # (Auto) (0.0-0.7) K/mcL Baso # (Auto) (0.0-0.3) K/mcL Sodium (133-145) mmol/L Potassium (3.3-5.1) mmol/L Chloride (96-108) mmol/L Carbon Dioxide (22-30) mmol/L Anion Gap (8-16) BUN (6-20) mg/dl Creatinine (0.6-1.1) mg/dl GFR Calculation Glucose (70-105) mg/dL Calcium (8.6-10.4) mg/dl Magnesium (1.6-2.5) mg/dL Total Bilirubin (0.0-1.0) mg/dL AST (0-37) U/l ALT (0-40) U/l Alkaline Phosphatase (39-117) U/L Lactate Dehydrogenase 291 H (94-250) U/L Total Protein (5.9-8.4) gm/dL Albumin (3.2-5.2) gm/dL Globulin (2.2-3.7) gm/dL Albumin/Globulin Ratio (1.0-2.3) Lipase (7-60) U/L Vitamin B12 (232-1245) pg/ml Urine Opiates Screen None detected (NONDETECTED) Ur Opiates Confirm Not Reportable Ur Oxycodone Screen None detected (NONDETECTED) Urine Methadone Screen None detected (NONDETECTED) Ur Methadone Confirm Not Reportable Ur Barbiturates Screen None detected (NONDETECTED) Ur Barbiturate Confirm Not Reportable Ur Phencyclidine Scrn None detected (NONDETECTED) Urine PCP Confirm Not Reportable Ur Amphetamines Screen None detected (NONDETECTED) U Amphetamines Confirm Not Reportable U Benzodiazepines Scrn None detected (NONDETECTED) U Benzodiazepine Confm Not Reportable Urine Cocaine Screen None detected (NONDETECTED) Urine Cocaine Confirm Not Reportable U Cannabinoids Confirm Not Reportable U Marijuana (THC) Screen None detected (NONDETECTED) Ethyl Alcohol (<0.010) gm/dl - Radiology Data Radiology results reviewed: Yes I reviewed the patient's radiology results. Disposition Pt seen by GENERAL SURGEON/PA only: No Clinical Impression: Pancreatitis, acute, Alcohol withdrawal Disposition: Xfer As Inpt ([facility]) Condition: Undetermined
[2019-09-10] MEDS: FAMOTIDINE/PF 20 MG/2 ML VIAL IV SCH ×2 (08:26→21:26)
[2019-09-10] MEDS: ENOXAPARIN 40 MG/0.4 ML SYRINGE SQ SCH (08:26)
[2019-09-10] MEDS: MULTIVIT,THER IRON,CA,FA & MIN 1 TABLET PO SCH (08:26)
[2019-09-10] MEDS: FOLIC ACID 1 MG TABLET PO SCH (08:26)
[2019-09-10] MEDS: THIAMINE 100 MG TABLET PO SCH (08:26)
[2019-09-10] MEDS: DOCUSATE SODIUM 100 MG CAPSULE PO SCH ×2 (08:26→21:26)
--- NOTE | 2019-09-10 08:40 | Cat Scan Report ---
History: Abdominal pain, elevated lipase, alcohol withdrawal TECHNIQUE: The patient was imaged following intravenous but no oral contrast scanning during the portal venous phase from the diaphragm to the symphysis pubis. Sagittal and coronal reformats were created. Radiation exposure was limited using dose reduction technology. FINDINGS: The lung bases are clear. There is a moderate size hiatus hernia. The mucosal folds of the hiatus hernia and the adjacent distal thoracic esophagus are abnormally thickened. No varices are identified. The liver and spleen are normal in size and homogeneous. The pancreas is also normal in size and homogeneous without evidence of pancreatitis, mass or pseudocyst. The pancreatic duct is nondilated. The gallbladder and bile ducts are normal. The adrenals and kidneys are normal. The aorta and inferior vena cava are normal. The bowel gas pattern is normal. The uterus is retroverted. There are two tampons within the vagina. The ovaries are difficult to clearly identified separate from adjacent unopacified bowel but there is no apparent ovarian lesion. No ascites mass or abscess are present within the abdomen or pelvis. Incidentally noted is transitional vertebra with partial sacralization of L5. Left-sided breast implant is present. IMPRESSION: No radiographic evidence of pancreatitis Thickened wall of the distal esophagus and thickened wall of the hiatus hernia. This could be due to reflux esophagitis. Interpreted and Authenticated by: Jimmie Hamlin 09/10/19
[2019-09-10] MEDS ORDERED: POLYETHYLENE GLYCOL 3350 17 GM PACKET PO ONE (09:51)
[2019-09-10] MEDS ORDERED: MAG HYDROX/AL HYDROX/SIMETH 30 ML ORAL.SUSP PO PRN (09:51)
[2019-09-10] MEDS ORDERED: MAG HYDROX/AL HYDROX/SIMETH 30 ML ORAL.SUSP PO ONE (09:51)
[2019-09-10] MEDS: HYDROmorphone 2 MG/ML VIAL IV PRN ×4 (11:31→23:14)
[2019-09-10] MEDS: PHOSPHORUS 250 MG TABLET PO SCH ×2 (17:06→21:26)
[2019-09-11] MEDS: LORazepam 2 MG/ML VIAL IV PRN ×5 (02:07→21:39)
[2019-09-11] MEDS: HYDROmorphone 2 MG/ML VIAL IV PRN ×4 (02:07→21:39)
[2019-09-11] MEDS: ONDANSETRON 4 MG/2 ML VIAL IV PRN ×5 (04:15→21:40)
[2019-09-11 04:16] LABS: Appearance,Urine CLEAR; Bacteria,Urine 0 /hpf (0); Bilirubin,Urine NEG (NEG); Color,Urine STRAW; Culture Indicated,Urine NO; Glucose,Urine (UA) NEGATIVE (NEG); Ketones,Urine NEG (NEG); Leukocyte Esterase,Urine NEG /uL (NEG); Mucus,Urine FEW /hpf (0); Nitrate,Urine NEG (NEG); Protein,Urine NEG (NEG); Specific Gravity,Urine 1.006 (1.000-1.035); Urine Blood 0.2 mg/dL (<0.03); Urine RBC 2 /hpf (0-1); Urine Squamous Epithelial Cell 1 /hpf (0-4); Urine WBC 0 /hpf (0-4); Urobilinogen,Urine NEG (NEG)
[2019-09-11] MEDS: 0.9 % SODIUM CHLORIDE 10 ML SYRINGE IV SCH ×3 (05:16→21:40)
[2019-09-11 06:40] LABS: ALT/SGPT 32 U/l (0-40); AST/SGOT 30 U/l (0-37); Albumin 3.6 gm/dL (3.2-5.2); Albumin/Globulin Ratio 1.4 (1.0-2.3); Alkaline Phosphatase 79 U/L (39-117); Bilirubin,Direct < 0.2 mg/dL (0.0-0.3); Bilirubin,Total 0.8 mg/dL (0.0-1.0); Blood Urea Nitrogen 4 mg/dl (6-20); Calcium 7.9 mg/dl (8.6-10.4); Carbon Dioxide 25 mmol/L (22-30); Chloride 102 mmol/L (96-108); Globulin 2.5 gm/dL (2.2-3.7); Glomerular Filtration Rate 116; Glucose 88 mg/dL (70-105); Lactate Dehydrogenase 252 U/L (94-250); Phosphorous 1.6 mg/dL (2.7-4.5); Triglycerides 72 mg/dl (<150); Uric Acid 3.7 mg/dL (2.5-8.0)
[2019-09-11] MEDS ORDERED: POTASSIUM PHOSPHATE 40 MEQ in DEXTROSE 5% IN WATER 500 ML IV ONE (07:38)
--- NOTE | 2019-09-11 07:39 | Internal Med Progress Note ---
Medical - PN: Subj Patient information: Note initiated : 09/11/19 at 7:35 am Service Date, if different from initiated Date: [] Patient: Tameka Cdoy a 39 y/o F admitted on 09/09/19 for Detox from alcohol. Chief Complaint: [] Interval history: Ms. Cody is a 39 year old F 89-year-old female with history of alcohol abuse who states she was sober in March but then started drinking 1/5 of vodka 8 8 days ago after her boyfriend broke up with her. Last drink was this afternoon. Since that time patient states she is withdrawing and has been anxious, diaphoretic, tachycardic, N/V, sharp epigastric abdominal pain radiating to the back. Reports headaches as well, And fevers and chills no seizures. Does report auditory hallucinations. Did have pancreatitis earlier in the year when she was hospitalized with intractable nausea vomiting and pancreatitis . In the ED labs were essentially unremarkable, lipase is only 65. Blood alcohol level is 261. She is tachycardic 112 initially, initially mildly hypertensive.. No tachypnea. Blood pressure stable temperature within normal limits. CT abdomen showed no evidence of pancreatitis or acute pathology. She seems to be upset that she is drinking again and "wants to stop this". I discussed with her regarding follow-up with Dr. Ortega 09/10 No vomiting since last night. Still has nausea. Still having abdominal pain which she describes as sharp/burning. Not sleep very well. Anxious. States constipation. And headaches /fever/chills. 09/11 Little better. Abdominal pain present but slowly improving. Some nausea but no vomiting. Headache. Tolerating clear liquid diet will advance to full. CIWA -. Seems to be less agitated and anxious. Review of Systems: denies vomiting/chest pain/cough/dyspnea/diarrhea. Otherwise see above. - Constitutional Vitals: Vital Signs Temp Pulse Resp BP Pulse Ox 98.4 F 78 18 133/94 98 09/11/19 04:26 09/11/19 00:00 09/11/19 05:47 09/11/19 05:47 09/11/19 05:47 Period Temp Pulse Resp BP Sys/Lomeli Pulse Ox Last 24 Hr 98.0 F-98.8 F 73-87 114-152/72-105 96-99 Intake and Output 09/10/19 09/11/19 09/11/19 21:59 05:59 13:59 Intake Total 240 1509.0909 Output Total 1550 750 Balance -0450 626.1389 Weight 64.41 kg Intake & Output: Intake & Output 09/10/19 09/11/19 09/11/19 21:59 05:59 13:59 Intake Total 240 1509.0909 Output Total 1550 750 Balance -9402 438.5655 Weight 64.41 kg Intake: IV 1509.0909 Sodium Chloride 0.9% 1,000 ml @ 1000 100 mls/hr IV .Q10H PAUL Rx#: [id number] Potassium Phosphate 40 Meq In 509.0909 Dextrose 5% in Water 500 ml @ 127.273 mls/hr IV ONCE ONE Rx#: [id number] Oral 240 Output: Urine Catheter Amount 300 Void Amount 1250 750 Other: Urine Color Bright Yellow Dark Yellow Urine Odor Foul Foul # Voids 1 Exam: General: Alert, Awake, NAD Eyes/N/T: EOMI, Head/Neck: neck supple, CV: RRR ,no murmurs, Pulm: Clear b/l, no wheezing/rhonchi/rales Abd: soft, epigastric TTP improving, +BS x4 Ext: no clubbing/cyanosis/edema Neuro: Alert, no focal deficits, moves all extremities, Skin: warm/dry Medical - PN: Obj Da - Labs CBC & Chem 7: 09/09/19 18:25 09/11/19 04:05 Labs: Abnormal Lab Results 09/11/19 09/11/19 09/10/19 04:05 02:10 14:00 MPV Anion Gap BUN 4 L Glucose Calcium 7.9 L Phosphorus 1.6 L 1.5 L Magnesium AST ALT Lactate Dehydrogenase 252 H Lipase Urine Occult Blood 0.2 A Urine RBC 2 H Ethyl Alcohol 09/10/19 09/09/19 09/09/19 04:00 18:25 18:25 MPV Anion Gap BUN Glucose Calcium 7.6 L Phosphorus 1.6 L Magnesium 1.2 L AST 44 H ALT 43 H Lactate Dehydrogenase 335 H 291 H Lipase Urine Occult Blood Urine RBC Ethyl Alcohol 0.261 H 09/09/19 09/09/19 18:25 18:25 MPV 7.1 L Anion Gap 18.0 H BUN Glucose 118 H Calcium 8.3 L Phosphorus Magnesium AST 52 H ALT 55 H Lactate Dehydrogenase Lipase 65 H Urine Occult Blood Urine RBC Ethyl Alcohol Meds: Medications Acetaminophen (Tylenol) 650 mg PO Q6HP PRN PRN Reason: PAIN/FEVER > 101 Hydrocodone Bitart/Acetaminophen ([place] 5/325mg) 1 tab PO Q4HP PRN PRN Reason: PAIN LEVEL 3-6 Al Hydrox/Mg Hydrox/Simethicone (Maalox) 30 ml PO Q4-6HP PRN PRN Reason: Dyspepsia Chlordiazepoxide HCl (Librium) 50 mg PO Q4HP PRN PRN Reason: Alcohol Withdrawal Last Admin: 09/10/19 19:26 Dose: 50 mg Documented by: Clonidine HCl (Catapres) 0.1 mg PO Q4HP PRN PRN Reason: ALC Diphenhydramine HCl (Benadryl) 12.5 mg IV Q4HP PRN PRN Reason: Nausea/vomit/Allergic Symptoms Last Admin: 09/10/19 04:14 Dose: 12.5 mg Documented by: Docusate Sodium (Colace) 100 mg PO BID [facility] Last Admin: 09/10/19 21:26 Dose: 100 mg Documented by: Enoxaparin Sodium (Lovenox) 40 mg SQ DAILY [facility] Last Admin: 09/10/19 08:26 Dose: 40 mg Documented by: Famotidine (Pepcid) 20 mg IV Q12 [facility] Last Admin: 09/10/19 21:26 Dose: 20 mg Documented by: Folic Acid (Folic Acid) 1 mg PO DAILY [facility] Last Admin: 09/10/19 08:26 Dose: 1 mg Documented by: Hydromorphone HCl (Dilaudid) 0.25 - 0.5 mg IV Q2HP PRN; Protocol PRN Reason: Per Pain Protocol Last Admin: 09/11/19 04:15 Dose: 0.5 mg Documented by: Potassium Chloride 40 meq/ (Dextrose) 520 mls @ 130 mls/hr IV UD PRN PRN Reason: Potassium < 3 Magnesium Sulfate (Magnesium Sulfate) 2 gm in 50 mls @ 50 mls/hr IV UD PRN PRN Reason: Magnesium </= 1.6 Iron Carb/Multivit/Billiard Player/Folic Acid (Multivitamin W/Minerals) 1 tab PO DAILY [facility] Last Admin: 09/10/19 08:26 Dose: 1 tab Documented by: Lactulose (Cephulac) 20 gm PO DAILYP PRN PRN Reason: Constipation Lorazepam (Ativan) 0 mg IV Q4HP PRN; Protocol PRN Reason: etoh Withdrawal/Anxiety/Agitat Last Admin: 09/11/19 02:07 Dose: 1 mg Documented by: Ondansetron HCl (Zofran) 4 mg IV Q4HP PRN PRN Reason: Nausea And Vomiting Last Admin: 09/11/19 04:15 Dose: 4 mg Documented by: Polyethylene Glycol (Miralax) 17 gm PO DAILYP PRN PRN Reason: Constipation Potassium Chloride (Kdur) 40 meq PO UD PRN PRN Reason: Potssium is 3-3.5 Last Admin: 09/10/19 16:51 Dose: 40 meq Documented by: Potassium Chloride (Kdur) 40 meq PO UD PRN PRN Reason: Potassium < 3 Prochlorperazine (Compazine) 10 mg PO Q6HP PRN PRN Reason: Nausea And Vomiting Promethazine HCl (Phenergan) 12.5 mg IV Q6HP PRN PRN Reason: Nausea And Vomiting Senna (Senokot) 2 tab PO DAILYP PRN PRN Reason: Constipation Sodium Chloride (Saline Flush) 10 ml IV Q8 [facility] Last Admin: 09/11/19 05:16 Dose: 10 ml Documented by: Sodium Phosphate (Pot Phosphate Neutral) 250 mg PO QID [facility] Stop: 09/11/19 09:01 Last Admin: 09/10/19 21:26 Dose: 250 mg Documented by: Thiamine HCl (Vitamin B1) 100 mg PO QDAY [facility] Last Admin: 09/10/19 08:26 Dose: 100 mg Documented by: Medical - PN: A/P - Time Spent With Patient Total time spent is greater than 50% in coordination of care (as documented) at patient's floor/unit and/or counseling patient: - Narrative A/P Narrative: A: *Etoh Abuse with W/D: -CIWA still elevated, now in critical time period for DT's *N/V/Abdominal pain: 2/2 above, improving -CT a/p no pancreatitis or acute pathology -likely esophagitis from n/v; noted distal eso thickening *Anxiety: Does not take home medication but feels she needs it at home *GERD: *Tobacco abuse: *HypoMag/PHos: P: -CIWA, vitamins, prn Benzos -replete electrolytes -Pain control and antiemetics -advance to full liquid -Smoking and alcohol cessation counseling -f/u with Dr. Jordan aaronpt -ppx: lovenox/h2
[2019-09-11] MEDS: HYDROcodone/APAP 5/325MG TABLET PO PRN (08:03)
[2019-09-11] MEDS: ENOXAPARIN 40 MG/0.4 ML SYRINGE SQ SCH (09:16)
[2019-09-11] MEDS: FAMOTIDINE/PF 20 MG/2 ML VIAL IV SCH ×2 (09:17→21:38)
[2019-09-11] MEDS: NEUTRA PHOS 1 PACKET PO SCH ×2 (09:17→21:40)
[2019-09-11] MEDS: PHOSPHORUS 250 MG TABLET PO SCH (09:17)
[2019-09-11] MEDS: MULTIVIT,THER IRON,CA,FA & MIN 1 TABLET PO SCH (09:17)
[2019-09-11] MEDS: FOLIC ACID 1 MG TABLET PO SCH (09:17)
[2019-09-11] MEDS: DOCUSATE SODIUM 100 MG CAPSULE PO SCH ×2 (09:17→21:38)
[2019-09-11] MEDS: THIAMINE 100 MG TABLET PO SCH (09:17)
[2019-09-11] MEDS ORDERED: FLU VACC QS2019-20(6MOS UP)/PF 60 MCG/0.5 ML SYRINGE IM ONE (10:00)
[2019-09-11] MEDS: CLOTRIMAZOLE CRM 1% 1 DOSE TUBE TOPICAL SCH ×2 (15:48→21:38)
[2019-09-11] MEDS: cloNIDine HCL 0.1 MG TABLET PO PRN (21:38)
[2019-09-12] MEDS: HYDROmorphone 2 MG/ML VIAL IV PRN (04:15)
[2019-09-12] MEDS: LORazepam 2 MG/ML VIAL IV PRN ×3 (04:15→11:38)
[2019-09-12] MEDS: 0.9 % SODIUM CHLORIDE 10 ML SYRINGE IV SCH (05:42)
[2019-09-12 06:28] LABS: ALT/SGPT 23 U/l (0-40); AST/SGOT 21 U/l (0-37); Albumin 3.6 gm/dL (3.2-5.2); Albumin/Globulin Ratio 1.5 (1.0-2.3); Alkaline Phosphatase 71 U/L (39-117); Bilirubin,Direct < 0.2 mg/dL (0.0-0.3); Bilirubin,Total 0.7 mg/dL (0.0-1.0); Blood Urea Nitrogen 4 mg/dl (6-20); Calcium 8.7 mg/dl (8.6-10.4); Carbon Dioxide 25 mmol/L (22-30); Chloride 103 mmol/L (96-108); Globulin 2.4 gm/dL (2.2-3.7); Glomerular Filtration Rate 110; Glucose 87 mg/dL (70-105); Lactate Dehydrogenase 231 U/L (94-250); Triglycerides 73 mg/dl (<150)
[2019-09-12 06:31] LABS: Phosphorous 2.6 mg/dL (2.7-4.5)
--- NOTE | 2019-09-12 07:45 | Internal Med Progress Note ---
Medical - PN: Subj Patient information: Note initiated : 09/12/19 at 7:42 am Service Date, if different from initiated Date: [] Patient: Tameka Cody a 39 y/o F admitted on 09/09/19 for Detox from alcohol. Chief Complaint: [] Interval history: Ms. Cody is a 39 year old F 89-year-old female with history of alcohol abuse who states she was sober in March but then started drinking 1/5 of vodka 8 8 days ago after her boyfriend broke up with her. Last drink was this afternoon. Since that time patient states she is withdrawing and has been anxious, diaphoretic, tachycardic, N/V, sharp epigastric abdominal pain radiating to the back. Reports headaches as well, And fevers and chills no seizures. Does report auditory hallucinations. Did have pancreatitis earlier in the year when she was hospitalized with intractable nausea vomiting and pancreatitis . In the ED labs were essentially unremarkable, lipase is only 65. Blood alcohol level is 261. She is tachycardic 112 initially, initially mildly hypertensive.. No tachypnea. Blood pressure stable temperature within normal limits. CT abdomen showed no evidence of pancreatitis or acute pathology. She seems to be upset that she is drinking again and "wants to stop this". I discussed with her regarding follow-up with Dr. Ortega 09/10 No vomiting since last night. Still has nausea. Still having abdominal pain which she describes as sharp/burning. Not sleep very well. Anxious. States constipation. And headaches /fever/chills. 09/11 Little better. Abdominal pain present but slowly improving. Some nausea but no vomiting. Headache. Tolerating clear liquid diet will advance to full. CIWA 11-12. Seems to be less agitated and anxious. 09/12 CIWA scores 7-12 o/n. Pt states was feeling better including abdominal pain better but had full liquid breakfast this morning and had nausea/vomiting/abd pain. Phos level improved. Patient wants to leave today. I explained to her that she is not ready to be to be safely discharged given the alcohol withdrawal state and critical time. This moment. Including the nausea vomiting after a meal. She was bit tearful on said she wanted to go and did not want to lose her job. I discussed with her the importance of her safety over her job at the moment. We discussed the risk of leaving his medical advice including . She seems to still want to leave. Discussed with her following up with Dr. ortega. I would give her a prescription for as needed Librium to help prevent any further withdrawals however I told her that she still very high risk it is not in her best interest to leave. I instructed that she cannot mix Librium with alcohol and she stated she absolutely does not want to take anymore alcohol. Review of Systems: denies headache/chest pain/cough/dyspnea/diarrhea. Otherwise see above. - Constitutional Vitals: Vital Signs Temp Pulse Resp BP Pulse Ox 98.1 F 82 18 110/70 99 09/12/19 04:00 09/12/19 06:00 09/12/19 06:00 09/12/19 06:00 09/12/19 06:00 Period Temp Pulse Resp BP Sys/Lomeli Pulse Ox Last 24 Hr 97.6 F-99.6 F 82-85 16-20 110-151/70-108 98-100 Intake and Output 09/11/19 09/12/19 09/12/19 21:59 05:59 13:59 Intake Total 300 Output Total 200 500 Balance -200 -200 Weight 64.047 kg Intake & Output: Intake & Output 09/11/19 09/12/19 09/12/19 21:59 05:59 13:59 Intake Total 300 Output Total 200 500 Balance -200 -200 Weight 64.047 kg Intake: Oral 300 Output: Void Amount 200 500 Other: Meal Dinner Percent of Meal Consumed 10% Urine Appearance Clear Urine Color Straw Pale Urine Odor Strong Strong # Voids 1 Exam: General: Alert, Awake, NAD Eyes/N/T: EOMI, Head/Neck: neck supple, CV: RRR ,no murmurs, Pulm: Clear b/l, no wheezing/rhonchi/rales Abd: soft, epigastric TTP improving, +BS x4 Ext: no clubbing/cyanosis/edema Neuro: Alert, no focal deficits, moves all extremities, Skin: warm/dry Medical - PN: Obj Da - Labs CBC & Chem 7: 09/09/19 18:25 09/12/19 04:28 Labs: Abnormal Lab Results 09/12/19 09/11/19 09/11/19 04:28 04:05 02:10 MPV Anion Gap BUN 4 L 4 L Glucose Calcium 7.9 L Phosphorus 2.6 L 1.6 L Magnesium AST ALT Lactate Dehydrogenase 252 H Lipase Urine Occult Blood 0.2 A Urine RBC 2 H Ethyl Alcohol 09/10/19 09/10/19 09/09/19 14:00 04:00 18:25 MPV Anion Gap BUN Glucose Calcium 7.6 L Phosphorus 1.5 L 1.6 L Magnesium 1.2 L AST 44 H ALT 43 H Lactate Dehydrogenase 335 H 291 H Lipase Urine Occult Blood Urine RBC Ethyl Alcohol 09/09/19 09/09/19 09/09/19 18:25 18:25 18:25 MPV 7.1 L Anion Gap 18.0 H BUN Glucose 118 H Calcium 8.3 L Phosphorus Magnesium AST 52 H ALT 55 H Lactate Dehydrogenase Lipase 65 H Urine Occult Blood Urine RBC Ethyl Alcohol 0.261 H Meds: Medications Acetaminophen (Tylenol) 650 mg PO Q6HP PRN PRN Reason: PAIN/FEVER > 101 Hydrocodone Bitart/Acetaminophen ([place] 5/325mg) 1 tab PO Q4HP PRN PRN Reason: PAIN LEVEL 3-6 Last Admin: 09/11/19 08:03 Dose: 1 tab Documented by: Al Hydrox/Mg Hydrox/Simethicone (Maalox) 30 ml PO Q4-6HP PRN PRN Reason: Dyspepsia Chlordiazepoxide HCl (Librium) 50 mg PO Q4HP PRN PRN Reason: Alcohol Withdrawal Last Admin: 09/10/19 19:26 Dose: 50 mg Documented by: Clonidine HCl (Catapres) 0.1 mg PO Q4HP PRN PRN Reason: ALC Last Admin: 09/11/19 21:38 Dose: 0.1 mg Documented by: Clotrimazole (Mycelex Crm 1%) 1 dose TOPICAL BID [facility] Last Admin: 09/11/19 21:38 Dose: 1 dose Documented by: Diphenhydramine HCl (Benadryl) 12.5 mg IV Q4HP PRN PRN Reason: Nausea/vomit/Allergic Symptoms Last Admin: 09/10/19 04:14 Dose: 12.5 mg Documented by: Docusate Sodium (Colace) 100 mg PO BID [facility] Last Admin: 09/11/19 21:38 Dose: 100 mg Documented by: Enoxaparin Sodium (Lovenox) 40 mg SQ DAILY [facility] Last Admin: 09/11/19 09:16 Dose: 40 mg Documented by: Famotidine (Pepcid) 20 mg IV Q12 [facility] Last Admin: 09/11/19 21:38 Dose: 20 mg Documented by: Folic Acid (Folic Acid) 1 mg PO DAILY [facility] Last Admin: 09/11/19 09:17 Dose: 1 mg Documented by: Hydromorphone HCl (Dilaudid) 0.25 - 0.5 mg IV Q2HP PRN; Protocol PRN Reason: Per Pain Protocol Last Admin: 09/12/19 04:15 Dose: 0.5 mg Documented by: Potassium Chloride 40 meq/ (Dextrose) 520 mls @ 130 mls/hr IV UD PRN PRN Reason: Potassium < 3 Magnesium Sulfate (Magnesium Sulfate) 2 gm in 50 mls @ 50 mls/hr IV UD PRN PRN Reason: Magnesium </= 1.6 Iron Carb/Multivit/[employer] Turner/Folic Acid (Multivitamin W/Minerals) 1 tab PO DAILY [facility] Last Admin: 09/11/19 09:17 Dose: 1 tab Documented by: Lactulose (Cephulac) 20 gm PO DAILYP PRN PRN Reason: Constipation Lorazepam (Ativan) 0 mg IV Q4HP PRN; Protocol PRN Reason: etoh Withdrawal/Anxiety/Agitat Last Admin: 09/12/19 04:15 Dose: 2 mg Documented by: Ondansetron HCl (Zofran) 4 mg IV Q4HP PRN PRN Reason: Nausea And Vomiting Last Admin: 09/11/19 21:40 Dose: 4 mg Documented by: Polyethylene Glycol (Miralax) 17 gm PO DAILYP PRN PRN Reason: Constipation Potassium Chloride (Kdur) 40 meq PO UD PRN PRN Reason: Potssium is 3-3.5 Last Admin: 09/10/19 16:51 Dose: 40 meq Documented by: Potassium Chloride (Kdur) 40 meq PO UD PRN PRN Reason: Potassium < 3 Prochlorperazine (Compazine) 10 mg PO Q6HP PRN PRN Reason: Nausea And Vomiting Promethazine HCl (Phenergan) 12.5 mg IV Q6HP PRN PRN Reason: Nausea And Vomiting Senna (Senokot) 2 tab PO DAILYP PRN PRN Reason: Constipation Sodium Chloride (Saline Flush) 10 ml IV Q8 [facility] Last Admin: 09/12/19 05:42 Dose: 10 ml Documented by: Thiamine HCl (Vitamin B1) 100 mg PO QDAY [facility] Last Admin: 09/11/19 09:17 Dose: 100 mg Documented by: Medical - PN: A/P - Time Spent With Patient Total time spent is greater than 50% in coordination of care (as documented) at patient's floor/unit and/or counseling patient: - Narrative A/P Narrative: A: *Etoh Abuse with W/D: -CIWA 7-12, in critical time period for DT's *N/V/Abdominal pain: 2/2 above, improving -CT a/p no pancreatitis or acute pathology -likely esophagitis from n/v; noted distal eso thickening *Anxiety: Does not take home medication but feels she needs it at home *GERD: *Tobacco abuse: *HypoMag/PHos: improved P: -CIWA, vitamins, prn Benzos -replete electrolytes prn -Pain control and antiemetics -on full liquid -Smoking and alcohol cessation counseling -f/u with Dr. Ortega outpt -ppx: lovenox/h2
[2019-09-12] MEDS: chlordiazePOXIDE 25 MG CAPSULE PO PRN ×2 (08:27→13:37)
[2019-09-12] MEDS: HYDROcodone/APAP 5/325MG TABLET PO PRN ×2 (08:27→13:36)
[2019-09-12] MEDS: ONDANSETRON 4 MG/2 ML VIAL IV PRN (08:35)
[2019-09-12] MEDS ORDERED: NEUTRA PHOS 1 PACKET PO SCH (09:00)
--- NOTE | 2019-09-12 09:42 | Discharge Summary ---
Medical - DS: Prov Patient information: Note initiated : 09/12/19 at 9:37 am Service Date, if different from initiated Date: [] Patient: Tameka Cody a 39 y/o F admitted on 09/09/19 for Detox from alcohol. Chief Complaint: [] Date of admission: 09/09/19 23:34 Discharge date: 09/12/19 (AMA) Primary care physician: PCP No Consults: 09/09/19 Consult to Physician [CONS] Stat Comment: Consulting Provider: Arie Fuller Reason For Exam: Physician to Consult Consult to Physician [CONS] Stat Comment: Consulting Provider: Arie Fuller Reason For Exam: Physician to Consult 09/10/19 01:11 Consult to Physician [CONS] Routine Comment: Consulting Provider: Esther Ortega Reason For Exam: Physician to Consult Medical - DS: Meds - Discharge Medications Prescriptions: chlordiazePOXIDE [Librium] 25 mg PO Q6-8HP PRN #20 cap PRN Reason: Alcohol Withdrawal Prescription Printed Clotrimazole Crm 1% [Mycelex Crm 1%] 1 dose TOPICAL BID #1 tube Prescription Printed Ondansetron [Zofran ODT] 4 mg SL Q4HP PRN #30 tab PRN Reason: Nausea Prescription Printed Active and Home Medications: Home Medications Zolpidem Tartrate [Ambien Cr] 12.5 mg PO HS 01/05/17 [History Confirmed 09/09/19 Last Taken 01/23/17 21:00] Medical - DS: Hosp Hospital Course: Ms. Cody is a 39 year old F 89-year-old female with history of alcohol abuse who states she was sober in March but then started drinking 1/5 of vodka 8 8 days ago after her boyfriend broke up with her. Last drink was this afternoon. Since that time patient states she is withdrawing and has been anxious, diaphoretic, tachycardic, N/V, sharp epigastric abdominal pain radiating to the back. Reports headaches as well, And fevers and chills no seizures. Does report auditory hallucinations. Did have pancreatitis earlier in the year when she was hospitalized with intractable nausea vomiting and pancreatitis . In the ED labs were essentially unremarkable, lipase is only 65. Blood alcohol level is 261. She is tachycardic 112 initially, initially mildly hypertensive.. No tachypnea. Blood pressure stable temperature within normal limits. CT abdomen showed no evidence of pancreatitis or acute pathology. She seems to be upset that she is drinking again and "wants to stop this". I discussed with her regarding follow-up with Dr. Ortega 09/10 No vomiting since last night. Still has nausea. Still having abdominal pain which she describes as sharp/burning. Not sleep very well. Anxious. States constipation. And headaches/fever/chills. 09/11 Little better. Abdominal pain present but slowly improving. Some nausea but no vomiting. Headache. Tolerating clear liquid diet will advance to full. CIWA 11-12. Seems to be less agitated and anxious. 09/12 CIWA scores 7-12 o/n. Pt states was feeling better including abdominal pain better but had full liquid breakfast this morning and had nausea/vomiting/abd pain. Phos level improved. Patient wants to leave today. I explained to her that she is not ready to be to be safely discharged given the alcohol withdrawal state and critical time. This moment. Including the nausea vomiting after a meal. She was bit tearful on said she wanted to go and did not want to lose her job. I discussed with her the importance of her safety over her job at the moment. We discussed the risk of leaving his medical advice including . She seems to still want to leave. Discussed with her following up with Dr. ortega. I would give her a prescription for as needed Librium to help prevent any further withdrawals however I told her that she still very high risk it is not in her best interest to leave. I instructed that she cannot mix Librium with alcohol and she stated she absolutely does not want to take anymore alcohol. Instructed her that she is to return immediately to the hospital if symptoms worsen. Pt left AMA. Discharge diagnosis: Alcohol abuse and withdrawal anxiety GERD tobacco abuse - Time Spent with Patient Total time spent providing and/or coordinating discharge services: Greater than 30 minutes Medical - DS: Exam - Constitutional Vitals: Vital Signs Temp Pulse Pulse Resp BP BP Pulse Ox 09/12/19 08:42 98.8 F 14 108/88 09/12/19 06:00 82 18 110/70 99 09/12/19 04:00 98.1 F 18 118/81 99 09/12/19 02:57 18 122/86 98 09/12/19 00:11 98.2 F 16 126/94 98 09/11/19 22:18 98.8 F 16 151/94 98 09/11/19 21:18 98.3 F 20 146/108 99 09/11/19 18:56 140/90 98 09/11/19 18:00 18 144/102 99 09/11/19 15:36 97.6 F 20 128/91 100 09/11/19 15:16 144/104 09/11/19 11:55 98.4 F 16 132/79 99 09/11/19 10:00 99.6 F H 85 16 141/95 98 Intake and Output 09/11/19 09/12/19 09/12/19 21:59 05:59 13:59 Intake Total 300 120 Output Total 200 500 Balance -200 -200 120 Intake: Oral 300 120 Output: Void Amount 200 500 Other: Meal Dinner Percent of Meal Consumed 10% Urine Appearance Clear Urine Color Straw Pale Urine Odor Strong Strong # Voids 1 Weight 64.047 kg Medical - DS: Data Labs on day of discharge: Labs from last 24 hours 09/12/19 04:28 Sodium 140 Potassium 3.9 Chloride 103 Carbon Dioxide 25 Anion Gap 12.0 BUN 4 L Creatinine 0.7 GFR Calculation 110 Glucose 87 Uric Acid 4.0 Calcium 8.7 Phosphorus 2.6 L Magnesium 1.8 Total Bilirubin 0.7 Direct Bilirubin < 0.2 GGT 23 AST 21 ALT 23 Alkaline Phosphatase 71 Lactate Dehydrogenase 231 Total Protein 6.0 Albumin 3.6 Globulin 2.4 Albumin/Globulin Ratio 1.5 Triglycerides 73 Medical - DS: A/P - Patient/Caregiver Discharge Instructions Diet: Full Liquid Prescriptions: chlordiazePOXIDE [Librium] 25 mg PO Q6-8HP PRN #20 cap PRN Reason: Alcohol Withdrawal Prescription Printed Clotrimazole Crm 1% [Mycelex Crm 1%] 1 dose TOPICAL BID #1 tube Prescription Printed Ondansetron [Zofran ODT] 4 mg SL Q4HP PRN #30 tab PRN Reason: Nausea Prescription Printed - Follow up Plan Follow up with: No,PCP [Primary Care Provider] - Disposition: Left Against Medical Advice Prognosis: Undetermined Rehab Potential: Fair Overall status at discharge: patient is not back to baseline
[2019-09-12] MEDS: DOCUSATE SODIUM 100 MG CAPSULE PO SCH (10:57)
[2019-09-12] MEDS: MULTIVIT,THER IRON,CA,FA & MIN 1 TABLET PO SCH (10:58)
[2019-09-12] MEDS: FOLIC ACID 1 MG TABLET PO SCH (10:58)
[2019-09-12] MEDS: ENOXAPARIN 40 MG/0.4 ML SYRINGE SQ SCH (10:58)
[2019-09-12] MEDS: THIAMINE 100 MG TABLET PO SCH (11:01)
[2019-09-12] MEDS: CLOTRIMAZOLE CRM 1% 1 DOSE TUBE TOPICAL SCH (11:38)
[2019-09-12] MEDS: FAMOTIDINE/PF 20 MG/2 ML VIAL IV SCH (11:38)
[2019-09-12] MEDS: cloNIDine HCL 0.1 MG TABLET PO PRN (13:37)
== END 2019-09-12 14:08 | disposition left against medical advice (07) | DRG 894 ==
LOC: ED 17:33 → ICU 23:34 → ED 23:40
PROVIDERS: ADMIT Internal Medicine; ATTEND Internal Medicine